=== PATIENT | female | born 1960 | race Caucasian/White ===

== ENCOUNTER → 2016-10-27 | Outpatient (CLI) | payer MEDICARE ==
--- NOTE | 2016-10-27 09:20 | WOMENS IMAGING REPORT ---
EXAM DESCRIPTION: BILAT SCREENING MAMMO W/CAD COMPLETED DATE/TIME: 10/27/2016 9:07 am REASON FOR STUDY: Z12.31 ROUTINE SCREENING MAMMO Z12.31 ENCNTR SCREEN MAMMOGRAM FOR MALIGNANT NEOPL ASM OF RADHA COMPARISON: Multiple since 2008 TECHNIQUE: Standard craniocaudal and mediolateral oblique views of each breast recorded using LV Sensorsa l acquisition. LIMITATIONS: None. FINDINGS: Findings present which are benign by mammographic criteria. No suspicious masses, calcifi cations or architectural distortion. Read with the assistance of CAD. .[facility] - R2 Cenova Version 1.3 .[facility] - R2 Cenova Version 1.3 .[facility] - R2 Cenova Version 2.4 .[facility] [place] Cenova Version 2.4 .[facility] - R2 Summer Clerk Version 9.2 Benign mammographic findings may include one or more of the following: Smooth masses, popcorn/rim/co arse calcifications, asymmetries, post-procedure changes, and lesions with long-standing stability. BREAST DENSITY: b. There are scattered areas of fibroglandular density. BIRAD: 2 BENIGN FINDING(S) RECOMMENDATION: ROUTINE SCREENING COMMENT: PATIENT NOTIFIED BY LETTER. The [employer] recommends an annual screening mammogram for women aged 40 years or over. Each patient will receive a reminder prior to the anniversary date of her mammogram. The [employer] (ACR) has developed recommendations for screening MRI of the breast s in certain patient populations, to be used in conjunction with mammography. Breast MRI surveillanc e may be appropriate for women with more than 20% lifetime risk of developing breast cancer as deter mined by genetic testing, significant family history of the disease, or history of mantle radiation f or Hodgkins Disease. ACR Practice Guidelines 2008. TECHNICAL DOCUMENTATION: FINDING NUMBER: (1) ASSESSMENT: (1) JOB ID: [id number] [employer]- All Rights Reserved
== END ==
LOC: WI 08:49
PROVIDERS: ATTEND Physician Assistant
DX: Z12.31 Encounter for screening mammogram for malignant neoplasm of breast (principal)
CPT/HCPCS: 77067; G0202

== ENCOUNTER 2017-01-24 08:38 | Emergency (ER) | payer MEDICARE ==
[2017-01-24 08:55] VITALS: BP 135/69
[2017-01-24] MEDS ORDERED: HYDROCODONE/ACETAMINOPHEN 5-325 MG TABLET PO ONE (09:52)
--- NOTE | 2017-01-24 09:56 | ER Document Report ---
ED Hand/Wrist Injury - General Chief Complaint: Wrist Injury Stated Complaint: INJURY/WRIST PAIN Time seen by provider: 09:51 Mode of Arrival: Ambulatory Information source: Patient Notes: 56 year old female presents to ED for left wrist injury. She states she was started on water caught herself with her hand injuring her wrist. Pain is a 5 out of 5 days she fell last night. TRAVEL OUTSIDE OF THE [place] IN LAST 30 DAYS: No - HPI Injury to: Wrist Onset: Yesterday Where: Home Timing: Still present Quality of pain: Pressure, Sharp Severity: Severe Pain Level: 5 - Related Data Allergies/Adverse Reactions: bupropion HCl [From Wellbutrin] Allergy (Severe, Verified 01/24/17 09:11) Hives Past Medical History - General Information source: Patient - Social History Smoking Status: Current Every Day Smoker Cigarette use (# per day): Yes Chew tobacco use (# tins/day): No Smoking Education Provided: Yes - less than 2 minutes Frequency of alcohol use: Occasional Drug Abuse: None Lives with: Family Family History: CAD, Hyperlipidemia, Hypertension, Malignancy Patient has suicidal ideation: No Patient has homicidal ideation: No - Past Medical History Cardiac Medical History: Reports: Hx Hypertension - MEDICATED Pulmonary Medical History: Reports: Hx Asthma - humidity affected, inhaler PRN/ LAST EPISODE FALL 2013 EENT Medical History: Reports: None Neurological Medical History: Reports: None. Denies: Hx Cerebrovascular Accident, Hx Seizures Endocrine Medical History: Reports: Hx Hypothyroidism Renal/ Medical History: Reports: None Malignancy Medical History: Reports: None GI Medical History: Reports: Hx Colonoscopy Musculoskeltal Medical History: Reports Hx Arthritis - Osteoporosis Spine, arms and hands, Reports Hx Musculoskeletal Deformity, Reports Hx Musculoskeletal Trauma, Reports Other - Chronic pain Reynard's Psychiatric Medical History: Reports: Hx Anxiety Traumatic Medical History: Reports: Hx Fractures - Arm Infectious Medical History: Denies: Hx Hepatitis Past Surgical History: Reports: Hx Genitourinary Surgery - Bladder sling, Hx Hysterectomy, Other - Cataracts - Immunizations Hx Diphtheria, Pertussis, Tetanus Vaccination: Yes Hx Pneumococcal Vaccination: 10/03/04 Review of Systems - Review of Systems Constitutional: No symptoms reported EENT: No symptoms reported Cardiovascular: No symptoms reported Respiratory: No symptoms reported Gastrointestinal: No symptoms reported Genitourinary: No symptoms reported Female Genitourinary: No symptoms reported Musculoskeletal: Joint pain, Muscle pain - Left wrist pain left wrist pain Skin: No symptoms reported Hematologic/Lymphatic: No symptoms reported Neurological/Psychological: No symptoms reported -: Yes All other systems reviewed and negative Physical Exam - Vital signs Vitals: Temp Pulse Resp BP Pulse Ox 97.9 F 99 16 135/69 H 97 01/24/17 08:50 01/24/17 08:50 01/24/17 08:50 01/24/17 08:50 01/24/17 08:50 Interpretation: Normal - General General appearance: Appears well, Alert - HEENT Head: Normocephalic, Atraumatic Eyes: Normal Pupils: PERRL - Respiratory Respiratory status: No respiratory distress Chest status: Nontender Breath sounds: Normal Chest palpation: Normal - Cardiovascular Rhythm: Regular Heart sounds: Normal auscultation Murmur: No - Abdominal Inspection: Normal Distension: No distension Bowel sounds: Normal Tenderness: Nontender Organomegaly: No organomegaly - Back Back: Normal, Nontender - Extremities General upper extremity: Normal temperature General lower extremity: Normal inspection, Nontender, Normal color, Normal ROM , Normal temperature, Normal weight bearing. No: Alexy's sign Wrist: Tender, Ecchymosis, Limited ROM - Neurological Neuro grossly intact: Yes Cognition: Normal Orientation: AAOx4 Cory Coma Scale Eye Opening: Spontaneous Cory Coma Scale Verbal: Oriented Cory Coma Scale Motor: Obeys Commands Cory Coma Scale Total: 15 Speech: Normal Motor strength normal: LUE, RUE, LLE, RLE Sensory: Normal - Psychological Associated symptoms: Normal affect, Normal mood - Skin Skin Temperature: Warm Skin Moisture: Dry Skin Color: Normal Course - Vital Signs Vital signs: Temp Pulse Resp BP Pulse Ox 97.9 F 99 16 135/69 H 97 01/24/17 08:50 01/24/17 08:50 01/24/17 08:50 01/24/17 08:50 01/24/17 08:50 Discharge - Discharge Clinical Impression: Left wrist pain Condition: Stable Disposition: HOME, SELF-CARE Additional Instructions: CONTUSION: Your injury has resulted in a contusion -- a crushing of the deep tissues. No injury to important structures was detected during the physician's exam. Contusions vary in the amount of pain they cause, and in the length of time required for healing. Typically, the area will become bruised, and will remain painful to touch for two or three weeks. However, most patients are back to working and playing within a few days. After the initial period of rest and cold-packs, your symptoms (together with the doctor's recommendations) will determine how rapidly you can get back to full activity. Usually this means "do what feels okay, but don't do things that hurt." If re-examination was recommended, it's important to follow up as instructed. Call the doctor or return any time if pain increases, if swelling becomes severe, if you develop numbness or weakness in an injured extremity, or if any other alarming symptoms occur. USE OF TYLENOL (ACETAMINOPHEN): Acetaminophen may be taken for pain relief or fever control. It's much safer than aspirin, offering a wider range of "safe" dosages. It is safe during . Some brand names are Tylenol, Panadol, Datril, Anacin 3, Tempra, and Liquiprin. Acetaminophen can be repeated every four hours. The following are maximum recommended dosages: WEIGHT Dose Drops Elixir Chewable( 80mg) (LBS.) drprs=droppers tsp=teaspoon 6 40 mg 0.4 ml (1/2) 6-11 80 mg 0.8 ml (full) tsp 1 tab 12-16 120 mg 1 1/2 drprs 3/4 tsp 1 1/2 tabs 17-23 160 mg 2 drprs 1 tsp 2 tabs 24-30 240 mg 3 drprs 1 1/2 tsp 3 tabs 30-35 320 mg 2 tsp 4 tabs 36-41 360 mg 2 1/4 tsp 4 1/2 tabs 42-47 400 mg 2 1/2 tsp 5 tabs 48-53 480 mg 3 tsp 6 tabs 54-59 520 mg 3 1/4 tsp 6 1/2 tabs 60-64 560 mg 3 1/2 tsp 7 tabs 65-70 600 mg 3 3/4 tsp 7 1/2 tabs 71-76 640 mg 4 tsp 8 tabs 77-82 720 mg 4 1/2 tsp 9 tabs 83-88 800 mg 5 tsp 10 tabs >89 pounds or adults 650 mg to 900 mg Acetaminophen can be repeated every four hours. Maximum dose not to exceed 4000 mg a day. These maximum recommended dosages are slightly higher than the dosages written on the product container, but these dosages are very safe and below the toxic dosage for acetaminophen. SPLINT PRECAUTIONS: A splint has been placed. This will protect the area while healing begins. Your problem does NOT normally require a cast. It MUST, however, be held still! Keep the splint on ALL THE TIME until instructed to remove it by the doctor. As you begin to use the area, be careful. You shouldn't do anything which causes discomfort -- you may disturb the injury even with the splint in place. After the initial period of rest and elevation, if splint does not prevent pain when you move, come back. You may require placement of a different splint , or a cast. If there is unexpected severe pain, or numbness, discoloration, or swelling beyond the splint, you should return at once. If you feel that the splint has broken or become loose, come back. SPRAINED ANKLE: Your sprained ankle results from stretching or tearing of the ligaments which support the ankle. This usually results from twisting the foot inward and under. The ligaments will require time and protection in order to heal properly. Many ankle sprains are quite disabling, and should be taken seriously. The usual treatment for an ankle sprain is cold packs; protection with tape , splints, or wraps; elevation; and staying off the ankle for at least a day. As the ankle improves, you can walk IF it's not painful to bear weight. Sports are best postponed until healing is complete. More serious sprains usually require strengthening exercises after early healing. Your physician has assessed the seriousness of the ligament injury to your ankle. However, the treatment may change, depending on how your ankle progresses. If further exams were recommended, it is important that you follow through. Call the doctor if your foot becomes numb, painful, or severely swollen. ICE & ELEVATION: Apply ice packs frequently against the painful area. Many different schedules are recommended, such as "20 minutes on, 20 minutes off" or "one hour ice, two hours rest." If you need to work, you may need to go longer between ice treatments. You should plan to have the area ice packed AT LEAST one- fourth of the time. The ice should be applied over the wrap, tape, or splint, or over a layer of cloth -- not directly against the skin. Some ice bags have a built-in cloth and can be put directly on the skin. Your injured part should be elevated as much as possible over the next 48 hours. Try to keep the injury above the level of the heart. Avoid use of the injured area. Elevation and rest will decrease the swelling. USE OF IBLA-NFA-UTXSRTM IBUPROFEN: Ibuprofen (Advil, Nuprin, Medipren, Motrin IB) is a medication for fever and pain control. In addition, it has anti- inflammatory effects which may be beneficial, especially in the treatment of injuries. It's best to take ibuprofen with food. Persons with ulcer disease or allergy to aspirin should notify their physician of this before taking ibuprofen. Ibuprofen can be given every four to six hours, for a total of four doses daily. Age Pain or fever dose Antiinflammatory dose 6-8 yr 200 mg (1 tab) 200 mg (1 tab) 9-11 yr 200 mg (1 tab) 200-400 mg (1-2 tab) 11-14 yr 200-400 mg (1-2 tab) 400 mg (2 tab) 15-adult 400 mg (2 tab) 600 mg (3 tab) ORAL NARCOTIC MEDICATION: You have been given a prescription for pain control. This medication is a narcotic. It's best taken with food, as nausea can result if taken on an empty stomach. Don't operate machinery or drive within six hours of taking this medication. Do not combine this medicine with alcohol, or with any medication which can cause sedation (such as cold tablets or sleeping pills) unless you get permission from the physician. Narcotics tend to cause constipation. If possible, drink plenty of fluids and eat a diet high in fiber and fruits. Please be aware that prescription narcotics also have the potential for abuse. People become addicted to these medications because of the general sense of wellbeing that they induce. This feeling along with a significant reduction in tension, anxiety, and aggression provides a stimulating seductive quality to these drugs. Once your pain is under control, we encourage you to discard your unused narcotics. FOLLOW-UP CARE: If you have been referred to a physician for follow-up care, call the physician s office for an appointment as you were instructed or within the next two days. If you experience worsening or a significant change in your symptoms, notify the physician immediately or return to the Emergency Department at any time for re-evaluation. Please complete the patient's satisfaction survey if you get one and return. If you do not receive a survey you can go to [facility] website [email or web address] and place your comments about your very good care. Thank you very much. It was a pleasure be in your medical provider today. Forms: Elevated Blood Pressure, Smoking Cessation Education, Return to Work Referrals: RACHELLE RIVERA PA [Primary Care Provider] - Follow up as needed JUAN FRANCOIS DO [ACTIVE STAFF] - Follow up as needed
[2017-01-24] MEDS ORDERED: HYDROCODONE/ACETAMINOPHEN 5-325 MG 6 TAB/DSPK PO PRN (10:17)
== END 2017-01-24 10:35 | disposition home or self-care (01) ==
LOC: ER 08:38
DX: S69.92XA Unspecified injury of left wrist, hand and finger(s), initial encounter (principal); W01.0XXA Fall on same level from slipping, tripping and stumbling without subsequent striking against object, initial encounter; Y92.009 Unspecified place in unspecified non-institutional (private) residence as the place of occurrence of the external cause; F17.210 Nicotine dependence, cigarettes, uncomplicated; I10 Essential (primary) hypertension
CPT/HCPCS: 99283; 73110; L3984; A9270 ×2

== ENCOUNTER → 2017-11-11 | Outpatient (CLI) | payer MEDICARE ==
--- NOTE | 2017-11-11 12:24 | WOMENS IMAGING REPORT ---
EXAM DESCRIPTION: BONE DENSITY HIP/SPINE COMPLETED DATE/TIME: 11/11/2017 10:13 am REASON FOR STUDY: AGE-RELATED OSTEOPROSIS;M81.0 Z12.31 ENCNTR SCREEN MAMMOGRAM FOR MALIGNANT NEOPLA SM OF RADHA M81.0 AGE-RELATED OSTEOPOROSIS W/O CURRENT PATHOLOGICAL FRAC COMPARISON: October 2014 TECHNIQUE: Dual-Energy X-ray Absorptiometry (DEXA) of the AP Spine and Hip. LIMITATIONS: None. FINDINGS: LUMBAR SPINE: The bone mineral density (BMD) measured from L1-L4 in the AP projection correlates with a T-score of 0.0, which is normal as defined by the World Health Organization. 3.1% increase as compared to the p revious study. HIP: The bone mineral density (BMD) measured in the left hip correlates with a T-score of -3.2, which is o steoporosis as defined by the World Health Organization. -4.6% decrease as compared to the previous study IMPRESSION: 1. LUMBAR SPINE: Normal 2. HIP: Osteoporosis COMMENT: The World Health Organization defines low BMD as follows: T-score: Normal: Greater than -1.0 Osteopenia: Between -1.0 and -2.5 Osteoporosis: Less than -2.5 without fractures Established osteoporosis: Less than -2.5 with fractures In general, you may wish to consider: Diagnosis Treatment Follow-up DEXA Normal BMD Prevention 2-3 years Osteopenia Prevention/Therapy 1-2 years Osteoporosis Therapy Yearly TECHNICAL DOCUMENTATION: JOB ID: [id number] [employer]- All Rights Reserved
--- NOTE | 2017-11-11 18:11 | WOMENS IMAGING REPORT ---
EXAM DESCRIPTION: 3D SCREENING MAMMO BILAT COMPLETED DATE/TIME: 11/11/2017 10:13 am REASON FOR STUDY: ROUTINE SCRENNING Z12.31 Z12.31 ENCNTR SCREEN MAMMOGRAM FOR MALIGNANT NEOPLASM OF RADHA M81.0 AGE-RELATED OSTEOPOROSIS W/O CURRENT PATHOLOGICAL FRAC COMPARISON: Multiple since 2009 TECHNIQUE: Standard craniocaudal and mediolateral oblique views of each breast recorded using digita l acquisition and breast tomosynthesis. LIMITATIONS: None. FINDINGS: No masses, calcifications or architectural distortion. No areas of suspicion. Read with the assistance of CAD. .[facility] - R2 Cenova Version 1.3 .[facility] - R2 Cenova Version 1.3 .[facility] - R2 Cenova Version 2.4 .[facility] [place] - R2 Cenova Version 2.4 .[facility] - R2 Fitness Consultant Version 9.2 IMPRESSION: NORMAL MAMMOGRAM. BIRADS 1. BREAST DENSITY: b. There are scattered areas of fibroglandular density. BIRAD: 1 NEGATIVE RECOMMENDATION: ROUTINE SCREENING Please continue bilateral screening tomosynthesis in November 2018 COMMENT: The patient has been notified of the results by letter per SA requirements. Additional no tification policies are in place for contacting patient with suspicious or incomplete findings. Quality ID #[id number]: The [employer] recommends an annual screening mammogram for women aged 40 years or over. This facility utilizes a reminder system to ensure that all patients receive reminder letters, and/or direct phone calls for appointments. This includes reminders for routine scr eening mammograms, diagnostic mammograms, or other Breast Imaging Interventions when appropriate. Th is patient will be placed in the appropriate reminder system. The [employer] (ACR) has developed recommendations for screening MRI of the breast s in certain patient populations, to be used in conjunction with mammography. Breast MRI surveillanc e may be appropriate for women with more than 20% lifetime risk of developing breast cancer as deter mined by genetic testing, significant family history of the disease, or history of mantle radiation f or Hodgkins Disease. ACR Practice Guidelines 2008. DBT Technology DBT is a type of tomographic mammography. With conventional mammography, overlapping breast tissue ma y make lesions difficult to detect, even with good compression. DBT uses an x-ray tube that rotates a round the breast, taking images at different angles. These images are then combined to create thin sl ices of the breast that the radiologist can view as a 3D reconstruction. The [employer] unit can perform full-field digital mammograms (2D imaging); or DBT (3D imaging); or both, in a combination mode that quickly performs both the mammogram and the tomosynthesis scan while the breast is still compressed. PQRS 6045F: Fluoroscopic imaging is not utilized for breast tomosynthesis. TECHNICAL DOCUMENTATION: FINDING NUMBER: (1) ASSESSMENT: (1) JOB ID: [id number] [employer]- All Rights Reserved
== END ==
LOC: WI 09:24
PROVIDERS: ATTEND Physician Assistant
DX: Z12.31 Encounter for screening mammogram for malignant neoplasm of breast (principal); M81.0 Age-related osteoporosis without current pathological fracture
CPT/HCPCS: 77063; 77067; 77080

== ENCOUNTER → 2018-11-29 | Outpatient (CLI) | payer MEDICARE ==
--- NOTE | 2018-11-29 09:36 | WOMENS IMAGING REPORT ---
EXAM DESCRIPTION: 3D SCREENING MAMMO BILAT COMPLETED DATE/TIME: 11/29/2018 8:51 am REASON FOR STUDY: Z12.31 ENCOUNTER FOR SCREENING MAMMOGRAM FOR MALIGNANT NEOPLASM OF BREAST Z12.31 ENCNTR SCREEN MAMMOGRAM FOR MALIGNANT NEOPLASM OF RADHA COMPARISON: [id number] TECHNIQUE: Standard craniocaudal and mediolateral oblique views of each breast recorded using digita l acquisition and breast tomosynthesis. LIMITATIONS: None. FINDINGS: Findings present which are benign by mammographic criteria. No suspicious masses, calcifi cations or architectural distortion. Pertinent benign findings: Stable asymmetry right. Read with the assistance of CAD. .[facility] - R2 Cenova Version 1.3 .[facility] - R2 Cenova Version 2.1 .[facility] - R2 Cenova Version 2.4 .[facility] [place] R2 Cenova Version 2.4 .[facility] - R2 Silversmith Apprentice Version 9.2 Benign mammographic findings may include one or more of the following: Smooth masses, popcorn/rim/co arse calcifications, asymmetries, post-procedure changes, and lesions with long-standing stability. IMPRESSION: BENIGN MAMMOGRAPHIC FINDINGS. BIRADS 2 BREAST DENSITY: b. There are scattered areas of fibroglandular density. BIRAD: 2 BENIGN FINDING(S) RECOMMENDATION: RECOMMENDATION: ROUTINE SCREENING COMMENT: The patient has been notified of the results by letter per SA requirements. Additional no tification policies are in place for contacting patient with suspicious or incomplete findings. Quality ID #[id number]: The [employer] recommends an annual screening mammogram for women aged 40 years or over. This facility utilizes a reminder system to ensure that all patients receive reminder letters, and/or direct phone calls for appointments. This includes reminders for routine scr eening mammograms, diagnostic mammograms, or other Breast Imaging Interventions when appropriate. Th is patient will be placed in the appropriate reminder system. The [employer] (ACR) has developed recommendations for screening MRI of the breast s in certain patient populations, to be used in conjunction with mammography. Breast MRI surveillanc e may be appropriate for women with more than 20% lifetime risk of developing breast cancer as deter mined by genetic testing, significant family history of the disease, or history of mantle radiation f or Hodgkins Disease. ACR Practice Guidelines 2008. DBT Technology DBT is a type of tomographic mammography. With conventional mammography, overlapping breast tissue ma y make lesions difficult to detect, even with good compression. DBT uses an x-ray tube that rotates a round the breast, taking images at different angles. These images are then combined to create thin sl ices of the breast that the radiologist can view as a 3D reconstruction. The [employer] unit can perform full-field digital mammograms (2D imaging); or DBT (3D imaging); or both, in a combination mode that quickly performs both the mammogram and the tomosynthesis scan while the breast is still compressed. PQRS 6045F: Fluoroscopic imaging is not utilized for breast tomosynthesis. TECHNICAL DOCUMENTATION: FINDING NUMBER: (1) ASSESSMENT: (1) JOB ID: [id number] [employer]- All Rights Reserved Reading location - IP/workstation name: [email or web address]
== END ==
LOC: WI 08:08
PROVIDERS: ATTEND Physician Assistant
DX: Z12.31 Encounter for screening mammogram for malignant neoplasm of breast (principal)
CPT/HCPCS: 77063; 77067

== ENCOUNTER 2019-06-02 18:25 | Inpatient (IN) | payer MEDICARE ==
[2019-06-02] MEDS ORDERED: ONDANSETRON HCL INJ/PF 4 MG/2 ML SDV ONE (18:34)
[2019-06-02] MEDS ORDERED: PROPOFOL 1,000 MG/100 ML INFUS..BTL IV ONE (18:35)
[2019-06-02] MEDS ORDERED: FENTANYL CITRATE INJ/PF 100 MCG/2 ML AMPUL ONE (18:35)
--- NOTE | 2019-06-02 18:43 | ER Document Report ---
ED General - General Chief Complaint: Possible Overdose Stated Complaint: POSSIBLE OVERDOSE Time Seen by Provider: 06/02/19 18:39 Mode of Arrival: Medic Information source: Emergency Med Personnel Cannot obtain history due to: Intoxicated, Intubated, Altered mental status Notes: 59-year-old female with hypothyroidism, hypertension presents via EMS intubated, unresponsive. EMS reports that they were called to the house by family members who report that the patient sent a text stating that she was going to kill herself. EMS reports that this is the patient's second attempt of suicide since her committed suicide approximately 9 months ago. EMS reports a bottle of Valium that was filled on May 31, 2019 with 30 tabs completely empty next to a large bottle of 80 proof alcohol. EMS reports that they found the patient on the couch, minimally responsive. Patient was intubated with a 6.5 ET tube which is at 23 at the lips. No family at the bedside but EMS reports that they are on their way. Patient was administered ketamine for intubation. TRAVEL OUTSIDE OF THE [place] IN LAST 30 DAYS: No - HPI Onset: Just prior to arrival Onset/Duration: Sudden Similar symptoms previously: Yes - Related Data Allergies/Adverse Reactions: bupropion HCl [From Wellbutrin] Allergy (Severe, Verified 01/24/17 09:11) Hives Past Medical History - General Information source: Emergency Med Personnel, [facility] Records - Social History Smoking Status: Unknown if Ever Smoked Frequency of alcohol use: Heavy Drug Abuse: Prescription drugs Lives with: Alone Family History: CAD, Hyperlipidemia, Hypertension, Malignancy - Past Medical History Cardiac Medical History: Reports: Hx Hypertension - MEDICATED Denies: Hx Heart Attack Pulmonary Medical History: Reports: Hx Asthma - humidity affected, inhaler PRN/LAST EPISODE FALL 2013 Denies: Hx Bronchitis, Hx COPD, Hx Pneumonia Neurological Medical History: Denies: Hx Cerebrovascular Accident, Hx Seizures Endocrine Medical History: Reports: Hx Hypothyroidism Renal/ Medical History: Denies: Hx Peritoneal Dialysis GI Medical History: Reports: Hx Colonoscopy. Denies: Hx Hepatitis, Hx Hiatal H ernia, Hx Ulcer Musculoskeletal Medical History: Reports Hx Arthritis - Osteoporosis Spine, arms and hands, Reports Hx Musculoskeletal Deformity, Reports Hx Musculoskeletal Tr auma Psychiatric Medical History: Reports: Hx Anxiety Traumatic Medical History: Reports: Hx Fractures - Arm Infectious Medical History: Denies: Hx Hepatitis Past Surgical History: Reports: Hx Genitourinary Surgery - Bladder sling, Hx Hysterectomy, Other - Cataracts. Denies: Hx Mastectomy, Hx Open Heart Surgery - Immunizations Hx Diphtheria, Pertussis, Tetanus Vaccination: Yes Hx Pneumococcal Vaccination: 10/03/04 Review of Systems - Review of Systems -: Yes ROS unobtainable due to patient's medical condition Physical Exam - Vital signs Vitals: Resp BP Pulse Ox 14 118/63 100 06/02/19 18:29 06/02/19 18:29 06/02/19 18:29 - Notes Notes: PHYSICAL EXAMINATION: GENERAL: Intubated C collar in place. GCS 3T HEAD: Atraumatic, normocephalic. EYES: Pupils equal round and reactive to light, extraocular movements intact, sclera anicteric, conjunctiva are normal. ENT: Nares patent, oropharynx clear without exudates. Moist mucous membranes. No hemanotympanum . No blood in nares. No dental fracture NECK: Normal range of motion, supple without lymphadenopathy. Trachea midline LUNGS: Breath sounds clear to auscultation bilaterally and equal. No wheezes rales or rhonchi. HEART: Regular rate and rhythm without murmurs. Pulses intact all throughout. ABDOMEN: Soft, nontender, nondistended abdomen. Mild erythema around the umbil icus. No masses appreciated. Musculoskeletal: No purposeful movement NEUROLOGICAL: GCS 3 T PSYCH: Unresponsive SKIN: Mild erythema around the umbilicus. No other evidence of abrasion, lacerations. Course - Re-evaluation Re-evalutation: Laboratory 06/02/19 06/02/19 06/02/19 17:35 17:35 18:30 WBC 12.4 H RBC 4.51 Hgb 14.2 Hct 42.0 MCV 93 MCH 31.4 MCHC 33.8 RDW 12.5 Plt Count 298 Lymph % (Auto) 31.5 [place] % (Auto) 7.9 Eos % (Auto) 2.3 Baso % (Auto) 0.4 Absolute Neuts (auto) 7.2 Absolute Lymphs (auto) 3.9 Absolute Monos (auto) 1.0 Absolute Eos (auto) 0.3 Absolute Basos (auto) 0.1 Seg Neutrophils % 57.9 Carbonic Acid 1.24 HCO3/H2CO3 Ratio 20:1 ABG pH 7.41 ABG pCO2 41.3 ABG pO2 184.5 H ABG HCO3 25.7 H ABG Total CO2 26.9 H ABG O2 Saturation 99.3 H ABG Base Excess 0.9 FiO2 40% Sodium 138.2 Potassium 3.5 L Chloride 98 Carbon Dioxide 26 Anion Gap 14 BUN 13 Creatinine 0.61 Est GFR ( Amer) > 60 Est GFR (MDRD) Non-Af > 60 Glucose 80 Calcium 9.2 Total Bilirubin 0.3 Direct Bilirubin 0.2 Neonat Total Bilirubin Not Reportable Neonat Direct Bilirubin Not Reportable Neonat Indirect Bili Not Reportable AST 35 ALT 20 Alkaline Phosphatase 71 Total Protein 6.6 Albumin 4.1 Urine Color Urine Appearance Urine pH Ur Specific [place] Urine Protein Urine Glucose (UA) Urine Ketones Urine Blood Urine Nitrite Urine Bilirubin Urine Urobilinogen Ur Leukocyte Esterase Urine Bacteria (Auto) Squamous Epi Cells Auto Urine Mucus (Auto) Urine Ascorbic Acid Salicylates 4.1 Urine Opiates Screen Urine Methadone Screen Acetaminophen < 10 L Ur Barbiturates Screen Ur Phencyclidine Scrn Ur Amphetamines Screen U Benzodiazepines Scrn Urine Cocaine Screen U Marijuana (THC) Screen Serum Alcohol 337 H* 06/02/19 06/02/19 18:35 18:35 WBC RBC Hgb Hct MCV MCH MCHC RDW Plt Count Lymph % (Auto) [place] % (Auto) Eos % (Auto) Baso % (Auto) Absolute Neuts (auto) Absolute Lymphs (auto) Absolute Monos (auto) Absolute Eos (auto) Absolute Basos (auto) Seg Neutrophils % Carbonic Acid HCO3/H2CO3 Ratio ABG pH ABG pCO2 ABG pO2 ABG HCO3 ABG Total CO2 ABG O2 Saturation ABG Base Excess FiO2 Sodium Potassium Chloride Carbon Dioxide Anion Gap BUN Creatinine Est GFR ( Amer) Est GFR (MDRD) Non-Af Glucose Calcium Total Bilirubin Direct Bilirubin Neonat Total Bilirubin Neonat Direct Bilirubin Neonat Indirect Bili AST ALT Alkaline Phosphatase Total Protein Albumin Urine Color STRAW Urine Appearance CLEAR Urine pH 6.0 Ur Specific [place] 1.003 Urine Protein NEGATIVE Urine Glucose (UA) NEGATIVE Urine Ketones NEGATIVE Urine Blood SMALL H Urine Nitrite NEGATIVE Urine Bilirubin NEGATIVE Urine Urobilinogen NEGATIVE Ur Leukocyte Esterase NEGATIVE Urine Bacteria (Auto) TRACE Squamous Epi Cells Auto <1 Urine Mucus (Auto) RARE Urine Ascorbic Acid NEGATIVE Salicylates Urine Opiates Screen NEGATIVE Urine Methadone Screen NEGATIVE Acetaminophen Ur Barbiturates Screen NEGATIVE Ur Phencyclidine Scrn NEGATIVE Ur Amphetamines Screen NEGATIVE U Benzodiazepines Scrn UNCONFIRMED POSITIVE Urine Cocaine Screen NEGATIVE U Marijuana (THC) Screen NEGATIVE Serum Alcohol Chest X-Ray 06/02/19 00:00 IMPRESSION: 1. ELEVATED LEFT HEMIDIAPHRAGM WITH LEFT LOWER LOBE AIRSPACE DISEASE AND LEFT PLEURAL EFFUSION. NO PNEUMOTHORAX. 2. ENDOTRACHEAL TUBE APPEARS TO BE IN SATISFACTORY POSITION. NASOGASTRIC TUBE WITH THE DISTAL END IN THE LOWER ESOPHAGUS. ADVANCEMENT BY SEVERAL CM RECOMMENDED. Head CT 06/02/19 18:57 IMPRESSION: 1. No acute hemorrhage or mass effect 2. redundant loop of the orogastric tube extends superiorly into the nasopharynx; consider repositioning. Chest CT 06/02/19 20:03 IMPRESSION: 1. Areas of atelectasis/consolidation at the lung bases, left greater than right. No pleural effusions. 2. No hematoma, fluid collection, or contusion is seen in the body wall. 3. No acute intra-abdominal findings. Chest X-Ray 06/02/19 20:12 IMPRESSION: Findings suspicious for pulmonary edema along with small left pleural effusion. Enteric drainage tube tip is located within the gastric cardia with side-port located in the distal esophagus. Consider advancement for optimal positioning. copyright 2010 [employer]- All Rights Reserved Abdomen/Pelvis CT 06/02/19 20:53 IMPRESSION: 1. Areas of atelectasis/consolidation at the lung bases, left greater than right. No pleural effusions. 2. No hematoma, fluid collection, or contusion is seen in the body wall. 3. No acute intra-abdominal findings. 06/02/19 18:56 59-year-old female presents via EMS from home intubated, after an intentional overdose with alcohol and Valium. Patient was intubated in the field using ketamine. 6.5 ET tube was placed. Upon arrival there are bilateral breath sounds. Patient has an O2 saturation of 100%. There is no purposeful movement or evidence of trauma. Family members are not currently at the bedside. 06/02/19 20:01 Poison control contacted-supportive care recommended. On reevaluation patient had an episode of desaturation. She was taken off the vent and repositioned. Patient was bagged for approximately 1 minute with immediate improvement of oxygen saturation. Repeat chest x-ray was obtained and showed no evidence of pne umothorax. 06/02/19 20:11 Son presented to the emergency department and reports that at approximately 1645 his brother received a text message stating that the patient was attempting to kill herself. He does report prior similar attempts. IVC petition initiated and behavioral health consult placed. Son states that when she was found by him and his she was sitting on the couch slumped over. He states that there was no evidence of trauma or fall. NG tube advanced. Temp An was placed and patient was found to be hypothermic and rewarming was initiated. 06/02/19 20:13 CT of the head chest abdomen and pelvis were obtained and there is no evidence of head injury, acute abdominal findings. CT of the chest showed consolidation in the lung bases bilaterally. Due to my concern for aspiration patient did receive Zosyn. For post intubation sedation patient was initially given fentany l only due to her significant somnolence and intoxication with benzodiazepines and alcohol. During her ED course patient did begin to move, cough and propofol was initiated for sedation. Patient's alcohol level is currently 337. I did speak to Dr. Bundy who has accepted the patient to the ICU. 06/03/19 01:34 06/03/19 01:36 - Vital Signs Vital signs: Temp Pulse Resp BP Pulse Ox 98.4 F 73 16 99/61 L 99 06/03/19 00:25 06/03/19 00:37 06/03/19 00:37 06/03/19 00:25 06/03/19 00:37 - Laboratory Result Diagrams: 06/02/19 17:35 06/02/19 17:35 Laboratory results interpreted by me: 06/02/19 06/02/19 06/02/19 17:35 17:35 18:30 WBC 12.4 H ABG pO2 184.5 H ABG HCO3 25.7 H ABG Total CO2 26.9 H ABG O2 Saturation 99.3 H Potassium 3.5 L Urine Blood Acetaminophen < 10 L Serum Alcohol 337 H* 06/02/19 18:35 WBC ABG pO2 ABG HCO3 ABG Total CO2 ABG O2 Saturation Potassium Urine Blood SMALL H Acetaminophen Serum Alcohol - Diagnostic Test Radiology reviewed: Image reviewed, Reports reviewed - EKG Interpretation by Me EKG shows normal: Sinus rhythm Rate: Normal Rhythm: NSR When compared to previous EKG there are: No significant change Critical Care Note - Critical Care Note Total time excluding time spent on procedures (mins): 60 - Minutes of critical care time spent in direct contact evaluating and reevaluating the patient, treating symptoms, reviewing labs and studies and speaking with family and consultants excluding any procedures Discharge - Discharge Clinical Impression: Intentional overdose of drug in tablet form, Suicide attempt Alcohol intoxication Qualifiers: Complication of substance-induced condition: uncomplicated Qualified Code(s): F10.920 - Alcohol use, unspecified with intoxication, uncomplicated Acute alcohol intoxication Qualifiers: Complication of substance-induced condition: with unspecified complication Qualified Code(s): F10.929 - Alcohol use, unspecified with intoxication, unspecified Condition: Critical Disposition: ADMITTED INPATIENT Admitting Provider: Gregor (Hospitalist) Unit Admitted: ICU
[2019-06-02 18:50] LABS: ABSOLUTE BASOPHILS # (AUTO) 0.1 10^3/uL (0.0-0.2); ABSOLUTE EOSINOPHILS # (AUTO) 0.3 10^3/uL (0.0-0.6); ABSOLUTE LYMPHOCYTES (AUTO) 3.9 10^3/uL (0.5-4.7); ABSOLUTE NEUT (AUTO) 7.2 10^3/uL (1.7-8.2); BASOPHILS % (AUTO) 0.4 % (0-2); EOSINOPHILS % (AUTO) 2.3 % (0-6); HEMOGLOBIN 14.2 g/dL (12.0-15.5); LYMPHOCYTES % (AUTO) 31.5 % (13-45); MEAN CORPUSCULAR HEMOGLOBIN 31.4 pg (27.0-33.4); MEAN CORPUSCULAR HGB CONC 33.8 g/dL (32.0-36.0); MEAN CORPUSCULAR VOLUME 93 fl (80-97); MONOCYTES % (AUTO) 7.9 % (3-13); PLATELET COUNT 298 10^3/uL (150-450); RED BLOOD COUNT 4.51 10^6/uL (3.72-5.28); RED CELL DISTRIBUTION WIDTH 12.5 % (11.5-14.0); SEGMENTED NEUTROPHILS % (AUTO) 57.9 % (42-78); TOTAL CELLS COUNTED % (AUTO) 100 %; WHITE BLOOD COUNT 12.4 10^3/uL (4.0-10.5)
[2019-06-02] MEDS ORDERED: RINGERS SOLUTION,LACTATED 1,000 ML IV ONE (18:51)
--- NOTE | 2019-06-02 18:56 | RADIOLOGY REPORT (SQ) ---
EXAM DESCRIPTION: CHEST SINGLE VIEW COMPLETED DATE/TIME: 06/02/2019 6:47 pm REASON FOR STUDY: TRAUMA COMPARISON: None. EXAM PARAMETERS: NUMBER OF VIEWS: One view. TECHNIQUE: Single frontal radiographic view of the chest acquired. RADIATION DOSE: NA LIMITATIONS: None. FINDINGS: LUNGS AND PLEURA: Elevated left hemidiaphragm. Left lower lobe airspace disease. Possibl e left pleural effusion. Linear scarring in the right lung base. No pneumothorax. MEDIASTINUM AND HILAR STRUCTURES: No masses. Contour normal. HEART AND VASCULAR STRUCTURES: Heart normal in size. Normal vasculature. BONES: No acute findings. HARDWARE: Endotracheal tube with the tip located 3 cm proximal to the bridgett. Nasogastric tube with the tip at the gastroesophageal junction. OTHER: No other significant finding. IMPRESSION: 1. ELEVATED LEFT HEMIDIAPHRAGM WITH LEFT LOWER LOBE AIRSPACE DISEASE AND LEFT PLEURAL EFFUSION. NO P NEUMOTHORAX. 2. ENDOTRACHEAL TUBE APPEARS TO BE IN SATISFACTORY POSITION. NASOGASTRIC TUBE WITH THE DISTAL END IN THE LOWER ESOPHAGUS. ADVANCEMENT BY SEVERAL CM RECOMMENDED. TECHNICAL DOCUMENTATION: JOB ID: [id number] [employer]- All Rights Reserved Reading location - IP/workstation name: [email or web address]
[2019-06-02 19:01] LABS: ARTERIAL BLOOD BASE EXCESS 0.9 mmol/L; ARTERIAL BLOOD FIO2 40%; ARTERIAL BLOOD H2CO3 1.24 mmol/L (1.05-1.35); ARTERIAL BLOOD HCO3 25.7 mmol/L (20-24); ARTERIAL BLOOD O2 SATURATION 99.3 % (94-98); ARTERIAL BLOOD PCO2 41.3 mmHg (35-45); ARTERIAL BLOOD PH 7.41 (7.35-7.45); ARTERIAL BLOOD PO2 184.5 mmHg (80-100); ARTERIAL BLOOD TOTAL CO2 26.9 mmol/L (21-25)
[2019-06-02 19:06] LABS: APPEARANCE,URINE CLEAR; BILIRUBIN,URINE NEGATIVE (NEGATIVE); COLOR,URINE STRAW; GLUCOSE, URINE NEGATIVE (NEGATIVE); KETONES,URINE NEGATIVE (NEGATIVE); LEUKOCYTE ESTERASE,URINE NEGATIVE (NEGATIVE); NITRITE,URINE NEGATIVE (NEGATIVE); PROTEIN,URINE NEGATIVE (NEGATIVE); URINE SPECIFIC GRAVITY 1.003; UROBILINOGEN,URINE NEGATIVE mg/dL (<2.0)
[2019-06-02 19:07] LABS: ALBUMIN 4.1 g/dL (3.5-5.0); ALKALINE PHOSPHATASE 71 U/L (38-126); ANION GAP 14 (5-19); ASPARTATE AMINO TRANSFERASE 35 U/L (14-36); BILIRUBIN,DIRECT 0.2 mg/dL (0.0-0.4); BILIRUBIN,TOTAL 0.3 mg/dL (0.2-1.3); BLOOD UREA NITROGEN 13 mg/dL (7-20); CALCIUM 9.2 mg/dL (8.4-10.2); CARBON DIOXIDE 26 mmol/L (22-30); CHLORIDE 98 mmol/L (98-107); GLUCOSE 80 mg/dL (75-110); POTASSIUM 3.5 mmol/L (3.6-5.0); SALICYLATE 4.1 mg/dL (2.0-20.0); TOTAL PROTEIN 6.6 g/dL (6.3-8.2)
[2019-06-02] MEDS ORDERED: FLUMAZENIL INJ 0.5 MG/5 ML VIAL ONE (19:19)
[2019-06-02 19:20] LABS: URINE AMPHETAMINES SCREEN NEGATIVE; URINE BARBITURATES SCREEN NEGATIVE; URINE BENZODIAZEPINES SCREEN UNCONFIRMED POSITIVE; URINE COCAINE SCREEN NEGATIVE; URINE MARIJUANA (THC) SCREEN NEGATIVE; URINE METHADONE SCREEN NEGATIVE; URINE PHENCYCLIDINE SCREEN NEGATIVE
[2019-06-02] MEDS ORDERED: PROPOFOL 1,000 MG/100 ML INFUS..BTL IV PRN (19:25)
[2019-06-02 19:32] LABS: ACETAMINOPHEN < 10 ug/mL (10-30); ALCOHOL 337 mg/dL (NONE DETECTED)
[2019-06-02] MEDS ORDERED: ONDANSETRON HCL INJ/PF 4 MG/2 ML SDV IV ONE (19:41)
[2019-06-02] MEDS ORDERED: FENTANYL CITRATE INJ/PF 100 MCG/2 ML AMPUL IV ONE (19:41)
[2019-06-02] MEDS ORDERED: PIPERACILLIN/TAZOBACTAM 3.375 GM VIAL IV ONE (20:02)
--- NOTE | 2019-06-02 20:43 | RADIOLOGY REPORT (SQ) ---
EXAM DESCRIPTION: XR CHEST 1 VIEW COMPLETED DATE/TME: 06/02/2019 20:12 CLINICAL HISTORY: 59 years, Female, change in resp status COMPARISON: None. NUMBER OF VIEWS: One TECHNIQUE: Single frontal view of the chest was obtained LIMITATIONS: None. FINDINGS: Endotracheal tube tip is located within the trachea, approximately 3.3 cm above the bridgett. Enteric drainage tube tip is located within the gastric cardia with side-port located in the distal esophagus. Cardiopericardial silhouette is enlarged. Mediastinal contours are normal. Bilateral perihilar opacity with vascular indistinctness is noted. Interstitial lines are evident about the periphery of both lungs. No pneumothorax. There is likely a small left pleural effusion. IMPRESSION: Findings suspicious for pulmonary edema along with small left pleural effusion. Enteric drainage tube tip is located within the gastric cardia with side-port located in the distal esophagus. Consider advancement for optimal positioning. copyright 2010 [employer]- All Rights Reserved
--- NOTE | 2019-06-02 21:05 | EKG REPORT ---
SEVERITY:- BORDERLINE ECG - SINUS RHYTHM BORDERLINE T ABNORMALITIES, ANTERIOR LEADS : Confirmed by: Alex Vazquez MD 02-Jun-2019 21:04:45
--- NOTE | 2019-06-02 21:16 | RADIOLOGY REPORT (SQ) ---
EXAM DESCRIPTION: [facility]: CT HEAD WITHOUT IV CONTRAST CLINICAL HISTORY: 59 years Female; ams TECHNIQUE: Noncontrast CT head. All CT scans at this facility use dose modulation, iterative reconstruction, and/or weight based dosing when appropriate to reduce radiation dose to as low as reasonably achievable. COMPARISON: None. FINDINGS: Focal hypodensity in the anterior left basal ganglia lateral to the left caudate head is likely an old lacunar infarct. No acute hemorrhage or mass effect. Ventricles and cisterns are preserved. Visualized portions of paranasal sinuses and mastoids are clear. No acute calvarial fractures. An orogastric tube has a redundant segment that protrudes superiorly into the posterior nasopharynx. This is best seen on the lateral inspector type view. IMPRESSION: 1. No acute hemorrhage or mass effect 2. redundant loop of the orogastric tube extends superiorly into the nasopharynx; consider repositioning.
[2019-06-02] MEDS ORDERED: PROPOFOL INJ 200 MG/20 ML VIAL IV ONE (21:17)
--- NOTE | 2019-06-02 21:33 | RADIOLOGY REPORT (SQ) ---
CT OF THE CHEST, ABDOMEN, AND PELVIS EXAM DATE: 06/02/2019 8:53 PM CDT HISTORY: Pleural effusion. Abdominal wall erythema. COMPARISON: None. TECHNIQUE: CT scan of the chest, abdomen, and pelvis without IV contrast. This exam was performed according to our departmental dose-optimization program, which includes automated exposure control, adjustment of the mA and/or kV according to patient size and/or use of iterative reconstruction technique. FINDINGS: The thyroid gland is unremarkable. No mediastinal or axillary adenopathy. Limited evaluation for hilar adenopathy without IV contrast. The heart size is normal without pericardial effusion. There is an area of atelectasis/consolidation at the lung bases, left greater than right. No pleural effusions or pneumothorax. Endotracheal and enteric tubes are in situ. The aorta is normal caliber and contains atherosclerotic calcifications. The liver, spleen, pancreas, gallbladder, adrenal glands, and kidneys are unremarkable. There has been a prior hysterectomy. A An catheter in the urinary bladder is present. There are scattered colonic diverticula without surrounding inflammatory changes. No small bowel obstruction. No free fluid or free air. Appendix is normal. The aorta is normal caliber and contains atherosclerotic calcifications. Degenerative changes of the lumbar spine with moderate levocurvature centered at L2-L3. No acute fracture is identified. No body wall soft tissue contusion. No hematoma or fluid collection is seen. IMPRESSION: 1. Areas of atelectasis/consolidation at the lung bases, left greater than right. No pleural effusions. 2. No hematoma, fluid collection, or contusion is seen in the body wall. 3. No acute intra-abdominal findings.
[2019-06-02] MEDS ORDERED: ACETAMINOPHEN 325 MG TABLET PO PRN (22:10)
[2019-06-02 22:46] LABS: ARTERIAL BLOOD BASE EXCESS -0.9 mmol/L; ARTERIAL BLOOD H2CO3 1.16 mmol/L (1.05-1.35); ARTERIAL BLOOD HCO3 23.5 mmol/L (20-24); ARTERIAL BLOOD O2 SATURATION 97.3 % (94-98); ARTERIAL BLOOD PCO2 38.5 mmHg (35-45); ARTERIAL BLOOD PO2 95.4 mmHg (80-100); ARTERIAL BLOOD TOTAL CO2 24.7 mmol/L (21-25)
[2019-06-02 22:47] LABS: ARTERIAL BLOOD FIO2 45%
[2019-06-02] MEDS ORDERED: PANTOPRAZOLE SODIUM 40 MG VIAL IV ONE (23:29)
[2019-06-03] MEDS: IPRATROPIUM/ALBUTEROL 0.5-2.5 MG/3 ML AMPUL NEB SCH ×3 (00:37→16:44)
[2019-06-03] MEDS ORDERED: PIPERACILLIN/TAZOBACTAM 3.375 GM VIAL IV ONE (01:38)
[2019-06-03] MEDS: NORMAL SALINE 1000 ML 1,000 ML IV PRN ×4 (02:00→15:08)
[2019-06-03] MEDS: FENTANYL CITRATE INJ/PF 100 MCG/2 ML AMPUL IV PRN ×5 (02:33→22:05)
[2019-06-03] MEDS: PROPOFOL 1,000 MG/100 ML INFUS..BTL IV PRN ×5 (02:34→20:33)
[2019-06-03 03:55] LABS: ABSOLUTE BASOPHILS # (AUTO) 0.1 10^3/uL (0.0-0.2); ABSOLUTE EOSINOPHILS # (AUTO) 0.2 10^3/uL (0.0-0.6); ABSOLUTE LYMPHOCYTES (AUTO) 2.7 10^3/uL (0.5-4.7); ABSOLUTE MONOCYTES (AUTO) 0.9 10^3/uL (0.1-1.4); ABSOLUTE NEUT (AUTO) 9.5 10^3/uL (1.7-8.2); BASOPHILS % (AUTO) 0.6 % (0-2); EOSINOPHILS % (AUTO) 1.7 % (0-6); HEMOGLOBIN 12.2 g/dL (12.0-15.5); LYMPHOCYTES % (AUTO) 20.2 % (13-45); MEAN CORPUSCULAR HEMOGLOBIN 31.5 pg (27.0-33.4); MEAN CORPUSCULAR VOLUME 93 fl (80-97); MONOCYTES % (AUTO) 6.5 % (3-13); PLATELET COUNT 261 10^3/uL (150-450); RED BLOOD COUNT 3.88 10^6/uL (3.72-5.28); RED CELL DISTRIBUTION WIDTH 12.2 % (11.5-14.0); TOTAL CELLS COUNTED % (AUTO) 100 %; WHITE BLOOD COUNT 13.4 10^3/uL (4.0-10.5)
[2019-06-03] MEDS ORDERED: PIPERACILLIN SODIUM/TAZOBACTAM 3.375 GM in NORMAL SALINE 100 ML IV SCH (04:00)
[2019-06-03 04:12] LABS: ANION GAP 10 (5-19); BLOOD UREA NITROGEN 9 mg/dL (7-20); CALCIUM 8.1 mg/dL (8.4-10.2); CARBON DIOXIDE 23 mmol/L (22-30); CHLORIDE 102 mmol/L (98-107); GLUCOSE 96 mg/dL (75-110); POTASSIUM 3.1 mmol/L (3.6-5.0)
[2019-06-03 05:00] LABS: ARTERIAL BLOOD BASE EXCESS -1.6 mmol/L; ARTERIAL BLOOD H2CO3 1.15 mmol/L (1.05-1.35); ARTERIAL BLOOD HCO3 22.9 mmol/L (20-24); ARTERIAL BLOOD O2 SATURATION 96.5 % (94-98); ARTERIAL BLOOD PCO2 38.3 mmHg (35-45); ARTERIAL BLOOD PO2 85.5 mmHg (80-100); ARTERIAL BLOOD TOTAL CO2 24.1 mmol/L (21-25)
[2019-06-03 05:01] LABS: ARTERIAL BLOOD FIO2 30%
[2019-06-03] MEDS ORDERED: HEPARIN SOD (PORCINE) 5,000 UNIT/ML 1 ML VIAL SUBCUT SCH (06:00)
--- NOTE | 2019-06-03 06:11 | PDOC H&P ---
History of Present Illness Admission Date/PCP: 06/02/19 22:26 SHMUEL PLEITEZ MD Patient complains of: Overdose History of Present Illness: CRESENCIO BHATTI is a 59 year old female whose history is obtained by the record as she is intubated and sedated with a past medical history of hypothyroidism, hypertension, depression and overdose. Family reports receiving text with threats of suicide. Patient was found by EMS with agonal respirations and an empty bottle 80 proof alcohol and Valium unknown milligram filled May 31. In the emergency room she is unresponsive and intubated in the emergency room without family at bedside. Patient appears comfortable on current vent settings. Past Medical History Cardiac Medical History: Reports: Hypertension - MEDICATED Denies: Myocardial Infarction Pulmonary Medical History: Reports: Asthma - humidity affected, inhaler PRN/LAST EPISODE FALL 2013 Denies: Bronchitis, Chronic Obstructive Pulmonary Disease (COPD), Pneumonia Neurological Medical History: Denies: Seizures Endocrine Medical History: Reports: Hypothyroidism GI Medical History: Denies: Hepatitis, Hiatal Hernia Musculoskeltal Medical History: Reports: Arthritis - Osteoporosis Spine, arms and hands Psychiatric Medical History: Reports: Depression Hematology: Denies: Anemia, Sickle Cell Disease Past Surgical History Past Surgical History: Reports: Hysterectomy, Other - Cataracts Denies: Amputation, Mastectomy Social History Information Source: Emergency Med Personnel, [facility] Records Lives with: Alone Smoking Status: Unknown if Ever Smoked Frequency of Alcohol Use: Heavy Hx Prescription Drug Abuse: Yes - Advance Directive Resuscitation Status: Full Code Family History Family History: CAD, Hyperlipidemia, Hypertension, Malignancy Parental Family History Reviewed: No - Unobtainable Children Family History Reviewed: No - Unobtainable Sibling(s) Family History Reviewed.: No - Unobtainable Medication/Allergy Home Medications: Amlodipine Besylate [Norvasc 5 mg Tablet] 2.5 mg PO DAILY 11/29/14 Potassium Chloride 5 meq PO DAILY 12/22/15 Thyroid,Pork [Millen Thyroid] 90 mg PO DAILY 12/23/15 Allergies/Adverse Reactions: bupropion HCl [From Wellbutrin] Allergy (Severe, Verified 01/24/17 09:11) Hives Review of Systems ROS unobtainable: Due to mental status - Unobtainable Physical Exam Vital Signs: Temp Pulse Resp BP Pulse Ox 97.2 F 73 16 82/57 L 97 06/03/19 05:13 06/03/19 00:37 06/03/19 03:08 06/03/19 03:08 06/03/19 03:08 Intake & Output 06/01/19 06/02/19 06/03/19 11:59 11:59 11:59 Intake Total 1200 Output Total 1095 Balance 105 Weight 52.8 kg General appearance: PRESENT: no acute distress. ABSENT: cooperative Head exam: PRESENT: atraumatic, normocephalic Eye exam: PRESENT: conjunctiva pink, EOMI, PERRLA. ABSENT: scleral icterus Ear exam: PRESENT: normal external ear exam Mouth exam: PRESENT: other - Small quantity bright red blood in oropharynx following NG tube placement Neck exam: ABSENT: carotid bruit, JVD, lymphadenopathy, thyromegaly Respiratory exam: PRESENT: clear to auscultation mercedes. ABSENT: rales, rhonchi, wheezes Cardiovascular exam: PRESENT: RRR. ABSENT: diastolic murmur, rubs, systolic murmur Pulses: PRESENT: normal dorsalis pedis pul Vascular exam: PRESENT: normal capillary refill GI/Abdominal exam: PRESENT: normal bowel sounds, soft. ABSENT: distended, guarding, mass, organolmegaly, rebound, tenderness Rectal exam: PRESENT: deferred Extremities exam: PRESENT: full ROM. ABSENT: calf tenderness, clubbing, pedal edema Neurological exam: ABSENT: alert, CN II-XII grossly intact Skin exam: PRESENT: dry, intact, warm. ABSENT: cyanosis, rash Results Laboratory Results: 06/03/19 03:40 06/03/19 03:40 06/02/19 06/02/19 06/02/19 17:35 17:35 18:30 WBC 12.4 H RBC 4.51 Hgb 14.2 Hct 42.0 MCV 93 MCH 31.4 MCHC 33.8 RDW 12.5 Plt Count 298 Seg Neutrophils % 57.9 Carbonic Acid 1.24 HCO3/H2CO3 Ratio 20:1 ABG pH 7.41 ABG pCO2 41.3 ABG pO2 184.5 H ABG HCO3 25.7 H ABG O2 Saturation 99.3 H ABG Base Excess 0.9 FiO2 40% Sodium 138.2 Potassium 3.5 L Chloride 98 Carbon Dioxide 26 Anion Gap 14 BUN 13 Creatinine 0.61 Est GFR ( Amer) > 60 Glucose 80 Calcium 9.2 Total Bilirubin 0.3 AST 35 Alkaline Phosphatase 71 Total Protein 6.6 Albumin 4.1 Urine Color Urine Appearance Urine pH Ur Specific [place] Urine Protein Urine Glucose (UA) Urine Ketones Urine Blood Urine Nitrite Ur Leukocyte Esterase 06/02/19 06/02/19 06/03/19 18:35 22:38 03:40 WBC 13.4 H RBC 3.88 Hgb 12.2 Hct 36.0 MCV 93 MCH 31.5 MCHC 34.0 RDW 12.2 Plt Count 261 Seg Neutrophils % 71.0 Carbonic Acid 1.16 HCO3/H2CO3 Ratio 20:1 ABG pH 7.40 ABG pCO2 38.5 ABG pO2 95.4 ABG HCO3 23.5 ABG O2 Saturation 97.3 ABG Base Excess -0.9 FiO2 45% Sodium Potassium Chloride Carbon Dioxide Anion Gap BUN Creatinine Est GFR ( Amer) Glucose Calcium Total Bilirubin AST Alkaline Phosphatase Total Protein Albumin Urine Color STRAW Urine Appearance CLEAR Urine pH 6.0 Ur Specific [place] 1.003 Urine Protein NEGATIVE Urine Glucose (UA) NEGATIVE Urine Ketones NEGATIVE Urine Blood SMALL H Urine Nitrite NEGATIVE Ur Leukocyte Esterase NEGATIVE 06/03/19 06/03/19 03:40 04:40 WBC RBC Hgb Hct MCV MCH MCHC RDW Plt Count Seg Neutrophils % Carbonic Acid 1.15 HCO3/H2CO3 Ratio 19:1 ABG pH 7.40 ABG pCO2 38.3 ABG pO2 85.5 ABG HCO3 22.9 ABG O2 Saturation 96.5 ABG Base Excess -1.6 FiO2 30% Sodium 134.5 L Potassium 3.1 L Chloride 102 Carbon Dioxide 23 Anion Gap 10 BUN 9 Creatinine 0.47 L Est GFR ( Amer) > 60 Glucose 96 Calcium 8.1 L Total Bilirubin AST Alkaline Phosphatase Total Protein Albumin Urine Color Urine Appearance Urine pH Ur Specific [place] Urine Protein Urine Glucose (UA) Urine Ketones Urine Blood Urine Nitrite Ur Leukocyte Esterase Impressions: Head CT 06/02/19 18:57 IMPRESSION: 1. No acute hemorrhage or mass effect 2. redundant loop of the orogastric tube extends superiorly into the nasopharynx; consider repositioning. Chest CT 06/02/19 20:03 IMPRESSION: 1. Areas of atelectasis/consolidation at the lung bases, left greater than right. No pleural effusions. 2. No hematoma, fluid collection, or contusion is seen in the body wall. 3. No acute intra-abdominal findings. Chest X-Ray 06/02/19 20:12 IMPRESSION: Findings suspicious for pulmonary edema along with small left pleural effusion. Enteric drainage tube tip is located within the gastric cardia with side-port located in the distal esophagus. Consider advancement for optimal positioning. copyright 2011 [employer]- All Rights Reserved Abdomen/Pelvis CT 06/02/19 20:53 IMPRESSION: 1. Areas of atelectasis/consolidation at the lung bases, left greater than right. No pleural effusions. 2. No hematoma, fluid collection, or contusion is seen in the body wall. 3. No acute intra-abdominal findings. Assessment and Plan - Diagnosis (1) Encephalopathy acute Is this a current diagnosis for this admission?: Yes Plan: Secondary to benzodiazepine overdose and alcohol. Supportive care (2) Aspiration pneumonia Is this a current diagnosis for this admission?: Yes Plan: Empiric antibiotics, follow-up chest x-ray, CBC and blood culture (3) Benzodiazepine overdose Is this a current diagnosis for this admission?: Yes Plan: Supportive care, consider flumazenil (4) Alcohol intoxication Qualifiers: Complication of substance-induced condition: uncomplicated Qualified Code(s): F10.920 - Alcohol use, unspecified with intoxication, uncomplicated Is this a current diagnosis for this admission?: Yes Plan: Supportive care (5) Suicide attempt Is this a current diagnosis for this admission?: Yes Plan: Acetaminophen level below detected level, supportive care for benzodiazepine, alcohol overdose, follow-up psychiatry consult - Time Time Spent with patient: 35 or more minutes - Inpatient Certification Medical Necessity: Need Close Monitoring Due to Risk of Patient Decompensation
[2019-06-03] MEDS: POTASSI CL 20 MEQ/50 ML RIDER 20 MEQ/50 ML RTUPB IV SCH ×2 (06:30→08:02)
[2019-06-03] MEDS: MAGNESIUM SULFATE 1 GM/D5W 100 ML IV SCH ×2 (08:02→09:32)
[2019-06-03] MEDS: LORAZEPAM INJ 2 MG/1 ML VIAL IV PRN ×4 (08:56→20:19)
[2019-06-03] MEDS: PIPERACILLIN SODIUM/TAZOBACTAM 3.375 GM in NORMAL SALINE 100 ML IV SCH ×3 (10:41→20:20)
[2019-06-03] MEDS: NORMAL SALINE 100 ML with PANTOPRAZOLE SODIUM 80 MG IV PRN ×4 (10:42→20:18)
[2019-06-03 12:06] LABS: INTERNATIONAL RATION (INR) 0.95; PARTIAL THROMBOPLASTIN TIME 27.1 SEC (23.5-35.8); PROTHROMBIN TIME 12.7 SEC (11.4-15.4)
[2019-06-03 12:16] LABS: POTASSIUM 3.9 mmol/L (3.6-5.0)
--- NOTE | 2019-06-03 14:05 | RADIOLOGY REPORT (SQ) ---
EXAM DESCRIPTION: KUB/ABDOMEN (SINGLE VIEW) COMPLETED DATE/TIME: 06/03/2019 1:54 pm REASON FOR STUDY: NGT replacement COMPARISON: None. NUMBER OF VIEWS: One view. TECHNIQUE: Supine radiographic image of the abdomen acquired. LIMITATIONS: None. FINDINGS: BOWEL GAS PATTERN: Normal bowel gas pattern. No dilated loops. CALCIFICATIONS: No suspicious calcifications. SOFT TISSUES: No gross mass or suggestion of organomegaly. HARDWARE: Nasogastric tube with the tip in the stomach. BONES: No acute fracture. Marked degenerative changes in the spine with scoliosis. No worrisome bon e lesions. OTHER: No other significant finding. IMPRESSION: NASOGASTRIC TUBE WITH THE TIP IN THE STOMACH. NO RADIOGRAPHIC EVIDENCE FOR ACUTE ABDOMI NAL DISEASE. TECHNICAL DOCUMENTATION: JOB ID: [id number] [employer]- All Rights Reserved Reading location - IP/workstation name: [email or web address]
--- NOTE | 2019-06-03 14:44 | PSYCHOLOGICAL NOTE ---
Psych Note - Psych Note Date seen by psych provider: 06/03/19 Time seen by psych provider: 08:25 Psych Note: Presenting Problem: 24 hour IVC, OD of alcohol and Valium, currently on ventilator. Serum Alcohol Level was 337 upon arrival to ED. UDS is positive for benzodiazepines. She was seen on 12/22/15 for suicidal ideations. Diagnosis: OD Impression/Plan: Please contact [facility] when patient is no longer on ventilator and can engage in evaluation. A full IVC can be completed now or at a later date when patient is off ventilator, this is entirely up to the Attending Hospitalist. Note that inpatient placement efforts cannot be started until medically cleared and an IVC expires after 7 days. The current IVC is just a 24 Hour Petition. Thank you. Consulted with Dr. Vallejo regarding the management and care of patient.
--- NOTE | 2019-06-03 15:21 | PDOC PROGRESS REPORT ---
Subjective Progress Note for:: 06/03/19 Subjective:: This is a 59 yr old female with a PMH of hypothyroidism, hypertension, depression and alcohol abuse who brought in by EMS due to agonal respiration after a reported intentional ingestion of 30 tablets of Valium and alcohol intoxication. She was promptly intubated and admitted to the ICU. This morning, patient appears comfortable on current sedation. She remains intubated. She has been having some bright red bloody output from the OG. Reason For Visit: OVERDOSE,ASP PNEUMONIA,ACUTE RESPIRATORY FAILURE Physical Exam Vital Signs: Temp Pulse Resp BP Pulse Ox 99.7 F 75 16 118/67 97 06/03/19 14:00 06/03/19 14:00 06/03/19 14:00 06/03/19 14:00 06/03/19 14:00 Intake & Output 06/02/19 06/03/19 06/04/19 06:59 06:59 06:59 Intake Total 2268 1350 Output Total 1095 2600 Balance 1173 -1250 Weight 116 lb 6.465 oz General appearance: PRESENT: other - Intubated, sedated Head exam: PRESENT: atraumatic, normocephalic Eye exam: PRESENT: conjunctiva pink, EOMI, PERRLA. ABSENT: scleral icterus Ear exam: PRESENT: normal external ear exam Mouth exam: PRESENT: moist, tongue midline Neck exam: ABSENT: carotid bruit, JVD, lymphadenopathy, thyromegaly Respiratory exam: PRESENT: clear to auscultation mercedes. ABSENT: rales, rhonchi, wheezes Cardiovascular exam: PRESENT: RRR. ABSENT: diastolic murmur, rubs, systolic murmur Pulses: PRESENT: normal dorsalis pedis pul GI/Abdominal exam: PRESENT: normal bowel sounds, soft. ABSENT: distended, guarding, mass, organolmegaly, rebound, tenderness Rectal exam: PRESENT: deferred Neurological exam: PRESENT: other - Intubated, sedated Results Laboratory Results: 06/03/19 03:40 06/03/19 11:50 06/02/19 06/02/19 06/02/19 17:35 17:35 18:30 WBC 12.4 H RBC 4.51 Hgb 14.2 Hct 42.0 MCV 93 MCH 31.4 MCHC 33.8 RDW 12.5 Plt Count 298 Seg Neutrophils % 57.9 Carbonic Acid 1.24 HCO3/H2CO3 Ratio 20:1 ABG pH 7.41 ABG pCO2 41.3 ABG pO2 184.5 H ABG HCO3 25.7 H ABG O2 Saturation 99.3 H ABG Base Excess 0.9 FiO2 40% Sodium 138.2 Potassium 3.5 L Chloride 98 Carbon Dioxide 26 Anion Gap 14 BUN 13 Creatinine 0.61 Est GFR ( Amer) > 60 Glucose 80 Calcium 9.2 Magnesium Total Bilirubin 0.3 AST 35 Alkaline Phosphatase 71 Total Protein 6.6 Albumin 4.1 Urine Color Urine Appearance Urine pH Ur Specific [place] Urine Protein Urine Glucose (UA) Urine Ketones Urine Blood Urine Nitrite Ur Leukocyte Esterase 06/02/19 06/02/19 06/03/19 18:35 22:38 03:40 WBC 13.4 H RBC 3.88 Hgb 12.2 Hct 36.0 MCV 93 MCH 31.5 MCHC 34.0 RDW 12.2 Plt Count 261 Seg Neutrophils % 71.0 Carbonic Acid 1.16 HCO3/H2CO3 Ratio 20:1 ABG pH 7.40 ABG pCO2 38.5 ABG pO2 95.4 ABG HCO3 23.5 ABG O2 Saturation 97.3 ABG Base Excess -0.9 FiO2 45% Sodium Potassium Chloride Carbon Dioxide Anion Gap BUN Creatinine Est GFR ( Amer) Glucose Calcium Magnesium Total Bilirubin AST Alkaline Phosphatase Total Protein Albumin Urine Color STRAW Urine Appearance CLEAR Urine pH 6.0 Ur Specific [place] 1.003 Urine Protein NEGATIVE Urine Glucose (UA) NEGATIVE Urine Ketones NEGATIVE Urine Blood SMALL H Urine Nitrite NEGATIVE Ur Leukocyte Esterase NEGATIVE 06/03/19 06/03/19 06/03/19 03:40 03:40 04:40 WBC RBC Hgb Hct MCV MCH MCHC RDW Plt Count Seg Neutrophils % Carbonic Acid 1.15 HCO3/H2CO3 Ratio 19:1 ABG pH 7.40 ABG pCO2 38.3 ABG pO2 85.5 ABG HCO3 22.9 ABG O2 Saturation 96.5 ABG Base Excess -1.6 FiO2 30% Sodium 134.5 L Potassium 3.1 L Chloride 102 Carbon Dioxide 23 Anion Gap 10 BUN 9 Creatinine 0.47 L Est GFR ( Amer) > 60 Glucose 96 Calcium 8.1 L Magnesium 1.4 L Total Bilirubin AST Alkaline Phosphatase Total Protein Albumin Urine Color Urine Appearance Urine pH Ur Specific [place] Urine Protein Urine Glucose (UA) Urine Ketones Urine Blood Urine Nitrite Ur Leukocyte Esterase 06/03/19 11:50 WBC RBC Hgb Hct MCV MCH MCHC RDW Plt Count Seg Neutrophils % Carbonic Acid HCO3/H2CO3 Ratio ABG pH ABG pCO2 ABG pO2 ABG HCO3 ABG O2 Saturation ABG Base Excess FiO2 Sodium Potassium 3.9 Chloride Carbon Dioxide Anion Gap BUN Creatinine Est GFR ( Amer) Glucose Calcium Magnesium 2.1 Total Bilirubin AST Alkaline Phosphatase Total Protein Albumin Urine Color Urine Appearance Urine pH Ur Specific [place] Urine Protein Urine Glucose (UA) Urine Ketones Urine Blood Urine Nitrite Ur Leukocyte Esterase Impressions: Head CT 06/02/19 18:57 IMPRESSION: 1. No acute hemorrhage or mass effect 2. redundant loop of the orogastric tube extends superiorly into the nasopharynx; consider repositioning. Chest CT 06/02/19 20:03 IMPRESSION: 1. Areas of atelectasis/consolidation at the lung bases, left greater than right. No pleural effusions. 2. No hematoma, fluid collection, or contusion is seen in the body wall. 3. No acute intra-abdominal findings. Chest X-Ray 06/02/19 20:12 IMPRESSION: Findings suspicious for pulmonary edema along with small left pleural effusion. Enteric drainage tube tip is located within the gastric cardia with side-port located in the distal esophagus. Consider advancement for optimal positioning. copyright 2011 [employer]- All Rights Reserved Abdomen/Pelvis CT 06/02/19 20:53 IMPRESSION: 1. Areas of atelectasis/consolidation at the lung bases, left greater than right. No pleural effusions. 2. No hematoma, fluid collection, or contusion is seen in the body wall. 3. No acute intra-abdominal findings. KUB X-Ray 06/03/19 00:00 IMPRESSION: NASOGASTRIC TUBE WITH THE TIP IN THE STOMACH. NO RADIOGRAPHIC EVIDENCE FOR ACUTE ABDOMINAL DISEASE. Assessment and Plan - Diagnosis (1) Acute respiratory failure with hypoxia Is this a current diagnosis for this admission?: Yes Plan: Secondary to benzodiazepine overdose and alcohol intoxication. Intubated. On minimal vent settings. (2) Acute encephalopathy Is this a current diagnosis for this admission?: Yes (3) Upper GI bleed Is this a current diagnosis for this admission?: Yes Plan: Will start Protonix and Sandostatin drip. Type and screen. Will consult surgery. (4) Alcohol intoxication Qualifiers: Complication of substance-induced condition: uncomplicated Qualified Code(s): F10.920 - Alcohol use, unspecified with intoxication, uncomplicated Is this a current diagnosis for this admission?: Yes (5) Aspiration pneumonia Is this a current diagnosis for this admission?: Yes Plan: On Zosyn. (6) Suicide attempt Is this a current diagnosis for this admission?: Yes Plan: Psych consulted.
[2019-06-03 15:38] LABS: ABSOLUTE BASOPHILS # (AUTO) 0.1 10^3/uL (0.0-0.2); ABSOLUTE EOSINOPHILS # (AUTO) 0.1 10^3/uL (0.0-0.6); ABSOLUTE LYMPHOCYTES (AUTO) 1.5 10^3/uL (0.5-4.7); ABSOLUTE MONOCYTES (AUTO) 0.8 10^3/uL (0.1-1.4); ABSOLUTE NEUT (AUTO) 8.7 10^3/uL (1.7-8.2); BASOPHILS % (AUTO) 0.7 % (0-2); EOSINOPHILS % (AUTO) 0.7 % (0-6); HEMATOCRIT 37.9 % (36.0-47.0); HEMOGLOBIN 12.9 g/dL (12.0-15.5); LYMPHOCYTES % (AUTO) 13.4 % (13-45); MEAN CORPUSCULAR HEMOGLOBIN 31.4 pg (27.0-33.4); MEAN CORPUSCULAR VOLUME 92 fl (80-97); MONOCYTES % (AUTO) 7.1 % (3-13); PLATELET COUNT 260 10^3/uL (150-450); RED CELL DISTRIBUTION WIDTH 12.1 % (11.5-14.0); SEGMENTED NEUTROPHILS % (AUTO) 78.1 % (42-78); TOTAL CELLS COUNTED % (AUTO) 100 %; WHITE BLOOD COUNT 11.1 10^3/uL (4.0-10.5)
[2019-06-03] MEDS: NORMAL SALINE 500 ML with OCTREOTIDE ACETATE 500 MCG IV PRN ×2 (15:53)
[2019-06-03] MEDS: SUCRALFATE 1 GM TABLET PO SCH ×2 (15:54→22:05)
[2019-06-03] MEDS ORDERED: ACETAMINOPHEN 650 MG SUPP.RECT PR PRN (16:16)
--- NOTE | 2019-06-03 17:13 | PDOC CONSULTATION ---
Consultation Consult Date: 06/03/19 Attending physician:: TYLOR SCHOFIELD Provider Consulted: KEVIN LUBIN Consult reason:: NG tube bleeding History of Present Illness Admission Date/PCP: 06/02/19 22:26 SHMUEL PLEITEZ MD Patient complains of: Patient intubated History of Present Illness: CRESENCIO BHATTI is a 59 year old female Who is in the intensive care unit hospitalized and intubated due to overdose of alcohol and. Patient was found this afternoon to have bloody drainage from her nasogastric tube. Patient remains hemodynamically stable. Instructions were provided to DC the suction. Bleeding has transiently abated. Past Medical History Cardiac Medical History: Reports: Hypertension - MEDICATED Denies: Myocardial Infarction Pulmonary Medical History: Reports: Asthma - humidity affected, inhaler PRN/LAST EPISODE FALL 2013 Denies: Bronchitis, Chronic Obstructive Pulmonary Disease (COPD), Pneumonia Neurological Medical History: Denies: Seizures Endocrine Medical History: Reports: Hypothyroidism GI Medical History: Denies: Hepatitis, Hiatal Hernia Musculoskeltal Medical History: Reports: Arthritis - Osteoporosis Spine, arms and hands Psychiatric Medical History: Reports: Depression Hematology: Denies: Anemia, Sickle Cell Disease Past Surgical History Past Surgical History: Reports: Hysterectomy, Other - Cataracts Denies: Amputation, Mastectomy Social History Lives with: Alone Smoking Status: Unknown if Ever Smoked Frequency of Alcohol Use: Heavy Hx Prescription Drug Abuse: Yes - Advance Directive Resuscitation Status: Full Code Family History Family History: None, CAD, Hyperlipidemia, Hypertension, Malignancy Parental Family History Reviewed: No Children Family History Reviewed: No Sibling(s) Family History Reviewed.: No Medication/Allergy Home Medications: Unobtainable 06/03/19 Allergies/Adverse Reactions: bupropion HCl [From Wellbutrin] Allergy (Severe, Verified 01/24/17 09:11) Hives Review of Systems ROS unobtainable: Due to mental status - Unable to obtain due to patient being intubated, Other Physical Exam Vital Signs: Temp Pulse Resp BP Pulse Ox 100.8 F H 82 16 133/76 H 98 06/03/19 16:08 06/03/19 16:52 06/03/19 16:52 06/03/19 16:08 06/03/19 16:52 Intake & Output 06/02/19 06/03/19 06/04/19 06:59 06:59 06:59 Intake Total 3135 6600 Output Total 7238 4070 Balance 1173 -1700 Weight 52.8 kg General appearance: PRESENT: other - On the ventilator, agitated Mouth exam: PRESENT: dry mucosa Neck exam: PRESENT: other - Rhonchi bilaterally Respiratory exam: PRESENT: other Cardiovascular exam: PRESENT: RRR Pulses: PRESENT: normal carotid pulses, normal radial pulses, normal femoral pulses GI/Abdominal exam: PRESENT: other Rectal exam: PRESENT: deferred - No abdominal distention or tenderness however exam limited due to patient on sedation; umbilical skin piercing Extremities exam: PRESENT: +1 edema Neurological exam: PRESENT: other - Unable to sedation Results Laboratory Results: 06/03/19 15:23 06/03/19 11:50 06/02/19 06/02/19 06/02/19 17:35 17:35 18:30 WBC 12.4 H RBC 4.51 Hgb 14.2 Hct 42.0 MCV 93 MCH 31.4 MCHC 33.8 RDW 12.5 Plt Count 298 Seg Neutrophils % 57.9 Carbonic Acid 1.24 HCO3/H2CO3 Ratio 20:1 ABG pH 7.41 ABG pCO2 41.3 ABG pO2 184.5 H ABG HCO3 25.7 H ABG O2 Saturation 99.3 H ABG Base Excess 0.9 FiO2 40% Sodium 138.2 Potassium 3.5 L Chloride 98 Carbon Dioxide 26 Anion Gap 14 BUN 13 Creatinine 0.61 Est GFR ( Amer) > 60 Glucose 80 Calcium 9.2 Magnesium Total Bilirubin 0.3 AST 35 Alkaline Phosphatase 71 Total Protein 6.6 Albumin 4.1 Urine Color Urine Appearance Urine pH Ur Specific [place] Urine Protein Urine Glucose (UA) Urine Ketones Urine Blood Urine Nitrite Ur Leukocyte Esterase Blood Type Antibody Screen 06/02/19 06/02/19 06/03/19 18:35 22:38 03:40 WBC 13.4 H RBC 3.88 Hgb 12.2 Hct 36.0 MCV 93 MCH 31.5 MCHC 34.0 RDW 12.2 Plt Count 261 Seg Neutrophils % 71.0 Carbonic Acid 1.16 HCO3/H2CO3 Ratio 20:1 ABG pH 7.40 ABG pCO2 38.5 ABG pO2 95.4 ABG HCO3 23.5 ABG O2 Saturation 97.3 ABG Base Excess -0.9 FiO2 45% Sodium Potassium Chloride Carbon Dioxide Anion Gap BUN Creatinine Est GFR ( Amer) Glucose Calcium Magnesium Total Bilirubin AST Alkaline Phosphatase Total Protein Albumin Urine Color STRAW Urine Appearance CLEAR Urine pH 6.0 Ur Specific [place] 1.003 Urine Protein NEGATIVE Urine Glucose (UA) NEGATIVE Urine Ketones NEGATIVE Urine Blood SMALL H Urine Nitrite NEGATIVE Ur Leukocyte Esterase NEGATIVE Blood Type Antibody Screen 06/03/19 06/03/19 06/03/19 03:40 03:40 04:40 WBC RBC Hgb Hct MCV MCH MCHC RDW Plt Count Seg Neutrophils % Carbonic Acid 1.15 HCO3/H2CO3 Ratio 19:1 ABG pH 7.40 ABG pCO2 38.3 ABG pO2 85.5 ABG HCO3 22.9 ABG O2 Saturation 96.5 ABG Base Excess -1.6 FiO2 30% Sodium 134.5 L Potassium 3.1 L Chloride 102 Carbon Dioxide 23 Anion Gap 10 BUN 9 Creatinine 0.47 L Est GFR ( Amer) > 60 Glucose 96 Calcium 8.1 L Magnesium 1.4 L Total Bilirubin AST Alkaline Phosphatase Total Protein Albumin Urine Color Urine Appearance Urine pH Ur Specific [place] Urine Protein Urine Glucose (UA) Urine Ketones Urine Blood Urine Nitrite Ur Leukocyte Esterase Blood Type Antibody Screen 06/03/19 06/03/19 06/03/19 11:50 15:23 15:23 WBC 11.1 H RBC 4.10 Hgb 12.9 Hct 37.9 MCV 92 MCH 31.4 MCHC 34.0 RDW 12.1 Plt Count 260 Seg Neutrophils % 78.1 H Carbonic Acid HCO3/H2CO3 Ratio ABG pH ABG pCO2 ABG pO2 ABG HCO3 ABG O2 Saturation ABG Base Excess FiO2 Sodium Potassium 3.9 Chloride Carbon Dioxide Anion Gap BUN Creatinine Est GFR ( Amer) Glucose Calcium Magnesium 2.1 Total Bilirubin AST Alkaline Phosphatase Total Protein Albumin Urine Color Urine Appearance Urine pH Ur Specific [place] Urine Protein Urine Glucose (UA) Urine Ketones Urine Blood Urine Nitrite Ur Leukocyte Esterase Blood Type A POSITIVE Antibody Screen NEGATIVE Impressions: Head CT 06/02/19 18:57 IMPRESSION: 1. No acute hemorrhage or mass effect 2. redundant loop of the orogastric tube extends superiorly into the nasopharynx; consider repositioning. Chest CT 06/02/19 20:03 IMPRESSION: 1. Areas of atelectasis/consolidation at the lung bases, left greater than right. No pleural effusions. 2. No hematoma, fluid collection, or contusion is seen in the body wall. 3. No acute intra-abdominal findings. Chest X-Ray 06/02/19 20:12 IMPRESSION: Findings suspicious for pulmonary edema along with small left pleural effusion. Enteric drainage tube tip is located within the gastric cardia with side-port located in the distal esophagus. Consider advancement for optimal positioning. copyright 2010 [employer]- All Rights Reserved Abdomen/Pelvis CT 06/02/19 20:53 IMPRESSION: 1. Areas of atelectasis/consolidation at the lung bases, left greater than right. No pleural effusions. 2. No hematoma, fluid collection, or contusion is seen in the body wall. 3. No acute intra-abdominal findings. KUB X-Ray 06/03/19 00:00 IMPRESSION: NASOGASTRIC TUBE WITH THE TIP IN THE STOMACH. NO RADIOGRAPHIC EVIDENCE FOR ACUTE ABDOMINAL DISEASE. Assessment & Plan - Diagnosis (1) Upper GI bleed Is this a current diagnosis for this admission?: Yes Plan: Impression: Bright red blood to gastric tube, now abated, likely secondary to gastritis, tube trauma etc. Rule out peptic ulcer disease, or occult malignancy Recommendations: 1. Agree with withholding nasogastric suction but leave tube in position.; treat with sucralfate and proton pump inhibitor has been ordered by the hospital service 2. We will follow with you; if bleeding recurs, upper endoscopy, with possible clipping versus epinephrine injection. 3. The above discussed with the medical and nursing staff. (2) Acute alcohol intoxication Qualifiers: Complication of substance-induced condition: with unspecified complication Qualified Code(s): F10.929 - Alcohol use, unspecified with intoxication, unspecified (3) Acute encephalopathy Is this a current diagnosis for this admission?: Yes (4) Acute respiratory failure with hypoxia Is this a current diagnosis for this admission?: Yes (5) Benzodiazepine overdose Is this a current diagnosis for this admission?: Yes
[2019-06-04] MEDS: IPRATROPIUM/ALBUTEROL 0.5-2.5 MG/3 ML AMPUL NEB SCH ×3 (00:37→15:35)
[2019-06-04] MEDS: PROPOFOL 1,000 MG/100 ML INFUS..BTL IV PRN ×5 (01:27→18:50)
[2019-06-04] MEDS: LORAZEPAM INJ 2 MG/1 ML VIAL IV PRN ×4 (01:27→22:49)
[2019-06-04] MEDS: NORMAL SALINE 500 ML with OCTREOTIDE ACETATE 500 MCG IV PRN ×2 (01:27)
[2019-06-04] MEDS: NORMAL SALINE 1000 ML 1,000 ML IV PRN ×2 (01:28→11:30)
[2019-06-04] MEDS: PIPERACILLIN SODIUM/TAZOBACTAM 3.375 GM in NORMAL SALINE 100 ML IV SCH ×4 (02:12→20:59)
[2019-06-04] MEDS: FENTANYL CITRATE INJ/PF 100 MCG/2 ML AMPUL IV PRN ×3 (04:03→20:25)
[2019-06-04 04:11] LABS: ABSOLUTE EOSINOPHILS # (AUTO) 0.2 10^3/uL (0.0-0.6); ABSOLUTE LYMPHOCYTES (AUTO) 2.1 10^3/uL (0.5-4.7); ABSOLUTE MONOCYTES (AUTO) 0.7 10^3/uL (0.1-1.4); ABSOLUTE NEUT (AUTO) 5.5 10^3/uL (1.7-8.2); BASOPHILS % (AUTO) 0.6 % (0-2); EOSINOPHILS % (AUTO) 2.6 % (0-6); HEMATOCRIT 32.8 % (36.0-47.0); HEMOGLOBIN 11.5 g/dL (12.0-15.5); LYMPHOCYTES % (AUTO) 24.7 % (13-45); MEAN CORPUSCULAR HEMOGLOBIN 32.6 pg (27.0-33.4); MEAN CORPUSCULAR HGB CONC 35.1 g/dL (32.0-36.0); MEAN CORPUSCULAR VOLUME 93 fl (80-97); MONOCYTES % (AUTO) 8.1 % (3-13); PLATELET COUNT 215 10^3/uL (150-450); RED BLOOD COUNT 3.53 10^6/uL (3.72-5.28); RED CELL DISTRIBUTION WIDTH 12.3 % (11.5-14.0); TOTAL CELLS COUNTED % (AUTO) 100 %; WHITE BLOOD COUNT 8.6 10^3/uL (4.0-10.5)
[2019-06-04 04:28] LABS: BLOOD UREA NITROGEN 4 mg/dL (7-20); CALCIUM 7.6 mg/dL (8.4-10.2); GLUCOSE 155 mg/dL (75-110); POTASSIUM 3.8 mmol/L (3.6-5.0)
[2019-06-04 04:34] LABS: CARBON DIOXIDE 26 mmol/L (22-30); CHLORIDE 112 mmol/L (98-107)
[2019-06-04 04:36] LABS: ANION GAP 2 (5-19)
[2019-06-04] MEDS: SUCRALFATE 1 GM TABLET PO SCH ×3 (05:25→21:03)
[2019-06-04] MEDS: NORMAL SALINE 100 ML with PANTOPRAZOLE SODIUM 80 MG IV PRN ×4 (05:25→15:38)
[2019-06-04] MEDS ORDERED: DIPHENHYDRAMINE HCL 50 MG/ML VIAL ONE (08:35)
[2019-06-04] MEDS ORDERED: ONDANSETRON HCL INJ/PF 4 MG/2 ML SDV ONE (08:35)
[2019-06-04] MEDS ORDERED: GLUCAGON,HUMAN RECOMB 1 MG INJ ONE (08:36)
[2019-06-04] MEDS ORDERED: NALOXONE HCL INJ/PF 0.4 MG/1 ML SDV ONE (08:36)
[2019-06-04] MEDS ORDERED: FLUMAZENIL INJ 0.5 MG/5 ML VIAL ONE (08:36)
[2019-06-04] MEDS ORDERED: FENTANYL CITRATE INJ/PF 100 MCG/2 ML AMPUL ONE (08:36)
[2019-06-04] MEDS ORDERED: EPINEPHRINE INJ 1 MG/10 ML DISP.SYRIN ONE (08:36)
[2019-06-04] MEDS ORDERED: MIDAZOLAM 2 MG/2 ML INJ ONE (08:36)
[2019-06-04] MEDS ORDERED: MIDAZOLAM HCL 50 MG/100 ML RTUINJ ONE (09:04)
[2019-06-04] MEDS: MIDAZOLAM HCL 50 MG/100 ML RTUINJ IV PRN ×2 (09:14→21:20)
[2019-06-04] MEDS ORDERED: ETHYL ALCOHOL IV PRN (09:57)
--- NOTE | 2019-06-04 10:59 | Operative Report ---
Operative Report DATE OF SURGERY: 06/04/19 PREOPERATIVE DIAGNOSIS: Upper gastrointestinal bleeding POSTOPERATIVE DIAGNOSIS: Same; actively bleeding gastric lesser curvature ulcer, gastritis, hyperplastic gastric polyps, antritis, duodenitis OPERATION: 1) EGD; 2) control of bleeding ulcer with Hemospray: 3) control of bleeding ulcer with sclerosing agent (ethanol) SURGEON: CYNDI ARRIAGA ANESTHESIA: LMAC TISSUE REMOVED OR ALTERED: None COMPLICATIONS: None ESTIMATED BLOOD LOSS: Minimal less than 5 mL INTRAOPERATIVE FINDINGS: Actively bleeding lesser curvature gastric ulcer; gastritis; diffuse presence of hyperplastic polyps; antritis; duodenitis PROCEDURE: The procedure was done at bedside in the ICU. The patient was already intubated via ET tube, she had an orogastric tube as well, she was placed in the right lateral decubitus with the right side elevated; the gastroscope was inserted through a mouthpiece into the mouth, pharynx, esophagus, and the stomach. This, was filled with blood clots and diffusely carpeted with hyperplastic polyps. The endoscope was advanced through the pylorus into the duodenum up to the third portion of duodenum. Mild duodenitis was identified without actively bleeding areas the same as the antrum which presented with inflammatory changes but no active bleeding. The endoscope was then withdrawn into the stomach and retroflexed: the GE junction appeared to be normal; hyperplastic polyps were present throughout the entire gastric mucosa, a bleeding 1.5 cm ulcer located in the lesser curvature was noted. This was partially covered by a large blood clot which was not disturbed. The bleeding ulcer was then sprayed with HemoSpray powder with control of bleeding. Following this, a total of 5 mL's of 1:4 and ethanol solution was injected in separate 0.5 mL aliquots throughout the entire bleeding ulcer area to control the bleeding. And then to the procedure no active bleeding was noted from the ulcer bed. The gastroscope was then withdrawn without difficulty. The patient tolerated the procedure well.
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
[2019-06-05] MEDS: FENTANYL CITRATE INJ/PF 100 MCG/2 ML AMPUL IV PRN ×5 (00:25→21:52)
[2019-06-05] MEDS: IPRATROPIUM/ALBUTEROL 0.5-2.5 MG/3 ML AMPUL NEB SCH ×3 (00:50→16:37)
[2019-06-05] MEDS: NORMAL SALINE 1000 ML 1,000 ML IV PRN ×3 (02:10→22:30)
[2019-06-05] MEDS: MIDAZOLAM HCL 50 MG/100 ML RTUINJ IV PRN ×6 (03:13→23:38)
[2019-06-05] MEDS: PROPOFOL 1,000 MG/100 ML INFUS..BTL IV PRN ×3 (03:15→18:27)
[2019-06-05] MEDS: PIPERACILLIN SODIUM/TAZOBACTAM 3.375 GM in NORMAL SALINE 100 ML IV SCH ×4 (03:22→20:17)
[2019-06-05] MEDS: LORAZEPAM INJ 2 MG/1 ML VIAL IV PRN ×3 (03:45→20:00)
[2019-06-05 04:22] LABS: ABSOLUTE BASOPHILS # (AUTO) 0.1 10^3/uL (0.0-0.2); ABSOLUTE EOSINOPHILS # (AUTO) 0.3 10^3/uL (0.0-0.6); ABSOLUTE LYMPHOCYTES (AUTO) 1.3 10^3/uL (0.5-4.7); ABSOLUTE MONOCYTES (AUTO) 0.6 10^3/uL (0.1-1.4); ABSOLUTE NEUT (AUTO) 5.6 10^3/uL (1.7-8.2); BASOPHILS % (AUTO) 0.7 % (0-2); HEMATOCRIT 33.3 % (36.0-47.0); HEMOGLOBIN 11.3 g/dL (12.0-15.5); LYMPHOCYTES % (AUTO) 16.5 % (13-45); MEAN CORPUSCULAR HEMOGLOBIN 31.9 pg (27.0-33.4); MEAN CORPUSCULAR HGB CONC 34.1 g/dL (32.0-36.0); MEAN CORPUSCULAR VOLUME 94 fl (80-97); MONOCYTES % (AUTO) 7.2 % (3-13); PLATELET COUNT 221 10^3/uL (150-450); RED BLOOD COUNT 3.56 10^6/uL (3.72-5.28); RED CELL DISTRIBUTION WIDTH 12.5 % (11.5-14.0); SEGMENTED NEUTROPHILS % (AUTO) 71.6 % (42-78); TOTAL CELLS COUNTED % (AUTO) 100 %; WHITE BLOOD COUNT 7.8 10^3/uL (4.0-10.5)
[2019-06-05 04:37] LABS: BLOOD UREA NITROGEN 3 mg/dL (7-20); CALCIUM 7.9 mg/dL (8.4-10.2); CHLORIDE 113 mmol/L (98-107); GLUCOSE 98 mg/dL (75-110); POTASSIUM 3.2 mmol/L (3.6-5.0)
[2019-06-05 04:42] LABS: CARBON DIOXIDE 23 mmol/L (22-30)
[2019-06-05 04:49] LABS: ANION GAP 5 (5-19)
[2019-06-05] MEDS: SUCRALFATE 1 GM TABLET PO SCH ×3 (05:04→21:32)
[2019-06-05] MEDS ORDERED: POTASSI CL 20 MEQ/50 ML RIDER 20 MEQ/50 ML RTUPB IV ONE (05:31)
[2019-06-05] MEDS: POTASSIUM CHLORIDE 20 MEQ/50 ML RTU IV SCH ×4 (05:37→15:12)
--- NOTE | 2019-06-05 06:22 | RADIOLOGY REPORT (SQ) ---
EXAM DESCRIPTION: X-ray single view chest. CLINICAL HISTORY: 59 years Female, resp failure COMPARISON: 06/02/2019 TECHNIQUE: Single portable x-ray view of the chest performed on 06/05/2019 at 6:02 AM FINDINGS: The lungs are well expanded. There is increasing volume loss in the left inferior hemithorax when compared to the prior study. Findings may be due to a combination of pleural fluid, atelectasis or pneumonic infiltrate. There is no evidence of a pneumothorax. The cardiac silhouette is grossly within normal limits. The mediastinal contours are normal. No acute osseous abnormality is identified. No focal soft tissue abnormalities are seen. Lines and tubes: The tip of the endotracheal tube terminates just below the level of the clavicular heads. The feeding tube extends below the diaphragm and the tip is not visualized on this examination. There are multiple overlying case monitor leads. IMPRESSION: 1. Increasing volume loss in the left inferior hemithorax when compared to the prior study. Findings may reflect a combination of pleural fluid, atelectasis or pneumonic infiltrate. 2. Grossly stable life support lines and tubes. The tip of the feeding tube is not visualized on this examination but extends below the diaphragm.
[2019-06-05 07:47] LABS: ARTERIAL BLOOD BASE EXCESS -0.8 mmol/L; ARTERIAL BLOOD H2CO3 1.04 mmol/L (1.05-1.35); ARTERIAL BLOOD HCO3 22.8 mmol/L (20-24); ARTERIAL BLOOD O2 SATURATION 95.7 % (94-98); ARTERIAL BLOOD PCO2 34.4 mmHg (35-45); ARTERIAL BLOOD PH 7.44 (7.35-7.45); ARTERIAL BLOOD PO2 75.7 mmHg (80-100); ARTERIAL BLOOD TOTAL CO2 23.9 mmol/L (21-25)
[2019-06-05 07:50] LABS: ARTERIAL BLOOD FIO2 30%
--- NOTE | 2019-06-05 09:18 | PDOC PROGRESS REPORT ---
Subjective Progress Note for:: 06/05/19 Subjective:: Patient intubated, sedated Reason For Visit: OVERDOSE,ASP PNEUMONIA,ACUTE RESPIRATORY FAILURE Physical Exam Vital Signs: Temp Pulse Resp BP Pulse Ox 99.3 F 73 16 113/69 95 06/05/19 08:00 06/05/19 08:21 06/05/19 08:00 06/05/19 08:00 06/05/19 08:00 Intake & Output 06/04/19 06/05/19 06/06/19 06:59 06:59 06:59 Intake Total 3797 3564 147 Output Total 5085 2635 750 Balance -1288 929 -603 Weight 54 kg 54.3 kg General appearance: PRESENT: other - Sedated and intubated Head exam: PRESENT: other - Orogastric tube inserted without evidence of fresh blood Respiratory exam: PRESENT: clear to auscultation mercedes Cardiovascular exam: PRESENT: RRR GI/Abdominal exam: PRESENT: soft Results Laboratory Results: 06/05/19 04:05 06/05/19 04:05 06/05/19 06/05/19 06/05/19 04:05 04:05 07:39 WBC 7.8 RBC 3.56 L Hgb 11.3 L Hct 33.3 L MCV 94 MCH 31.9 MCHC 34.1 RDW 12.5 Plt Count 221 Seg Neutrophils % 71.6 Carbonic Acid 1.04 L HCO3/H2CO3 Ratio 21:1 ABG pH 7.44 ABG pCO2 34.4 L ABG pO2 75.7 L ABG HCO3 22.8 ABG O2 Saturation 95.7 ABG Base Excess -0.8 FiO2 30% Sodium 141.1 Potassium 3.2 L Chloride 113 H Carbon Dioxide 23 Anion Gap 5 BUN 3 L Creatinine 0.40 L Est GFR ( Amer) > 60 Glucose 98 Calcium 7.9 L Magnesium 1.7 Impressions: Head CT 06/02/19 18:57 IMPRESSION: 1. No acute hemorrhage or mass effect 2. redundant loop of the orogastric tube extends superiorly into the nasopharynx; consider repositioning. Chest CT 06/02/19 20:03 IMPRESSION: 1. Areas of atelectasis/consolidation at the lung bases, left greater than right. No pleural effusions. 2. No hematoma, fluid collection, or contusion is seen in the body wall. 3. No acute intra-abdominal findings. Abdomen/Pelvis CT 06/02/19 20:53 IMPRESSION: 1. Areas of atelectasis/consolidation at the lung bases, left greater than right. No pleural effusions. 2. No hematoma, fluid collection, or contusion is seen in the body wall. 3. No acute intra-abdominal findings. KUB X-Ray 06/03/19 00:00 IMPRESSION: NASOGASTRIC TUBE WITH THE TIP IN THE STOMACH. NO RADIOGRAPHIC EVIDENCE FOR ACUTE ABDOMINAL DISEASE. Chest X-Ray 06/05/19 06:00 IMPRESSION: 1. Increasing volume loss in the left inferior hemithorax when compared to the prior study. Findings may reflect a combination of pleural fluid, atelectasis or pneumonic infiltrate. 2. Grossly stable life support lines and tubes. The tip of the feeding tube is not visualized on this examination but extends below the diaphragm. Assessment & Plan - Diagnosis (1) Gastric ulcer with hemorrhage Is this a current diagnosis for this admission?: Yes (2) Upper GI bleed Is this a current diagnosis for this admission?: Yes - Plan Summary Plan Summary: Assessment: Postoperative day #1 following upper endoscopy with control of bleeding unless a curvature ulcer Patient hemoglobin/hematocrit stable Good urine output No blood noted in the orogastric tube Plan: I am recommended to continue high-dose Protonix intravenously (40 mg IV push every 8 hours) Continue Carafate 1 g per orogastric tube every 6 hours Patient can be started on tube feeding via orogastric tube in about 10 mL's per hour, check residuals, and increase rate as tolerated.
[2019-06-05] MEDS: PANTOPRAZOLE SODIUM 40 MG VIAL IV SCH ×2 (09:19→17:15)
[2019-06-05] MEDS ORDERED: MAGNESIUM SULFATE/D5W 1 GM/100 ML RTUPB IV ONE ×2 (09:48→10:30)
[2019-06-05] MEDS ORDERED: PANTOPRAZOLE SODIUM 40 MG VIAL IV SCH ×2 (10:00→14:00)
--- NOTE | 2019-06-05 11:48 | PDOC PROGRESS REPORT ---
Subjective Progress Note for:: 06/05/19 Subjective:: BP low, Desat check EKG Reason For Visit: OVERDOSE,ASP PNEUMONIA,ACUTE RESPIRATORY FAILURE Physical Exam Vital Signs: Temp Pulse Resp BP Pulse Ox 99.3 F 73 16 97/49 L 97 06/05/19 11:36 06/05/19 08:21 06/05/19 11:36 06/05/19 11:36 06/05/19 11:36 Intake & Output 06/04/19 06/05/19 06/06/19 06:59 06:59 06:59 Intake Total 3797 3564 365 Output Total 5059 2635 1050 Balance -1288 929 -685 Weight 54 kg 54.3 kg General appearance: PRESENT: no acute distress, other - intubated and sedated Head exam: PRESENT: atraumatic, normocephalic Ear exam: PRESENT: normal external ear exam. ABSENT: bleeding, drainage Mouth exam: PRESENT: other - Ett and OG tube Respiratory exam: PRESENT: clear to auscultation mercedes - Anteriorly, symmetrical, unlabored. ABSENT: accessory muscle use, rales, rhonchi, tachypnea Cardiovascular exam: PRESENT: RRR - With Occasional irregular beats GI/Abdominal exam: PRESENT: diminished bowel sounds, soft. ABSENT: distended, tenderness Rectal exam: PRESENT: deferred Gentrourinary exam: PRESENT: indwelling catheter Extremities exam: ABSENT: pedal edema Musculoskeletal exam: PRESENT: normal inspection Neurological exam: ABSENT: awake Psychiatric exam: ABSENT: agitated, anxious Focused psych exam: ABSENT: restlessness Results Laboratory Results: 06/05/19 04:05 06/05/19 06/05/19 06/05/19 04:05 04:05 07:39 WBC 7.8 RBC 3.56 L Hgb 11.3 L Hct 33.3 L MCV 94 MCH 31.9 MCHC 34.1 RDW 12.5 Plt Count 221 Seg Neutrophils % 71.6 Carbonic Acid 1.04 L HCO3/H2CO3 Ratio 21:1 ABG pH 7.44 ABG pCO2 34.4 L ABG pO2 75.7 L ABG HCO3 22.8 ABG O2 Saturation 95.7 ABG Base Excess -0.8 FiO2 30% Sodium 141.1 Potassium 3.2 L Chloride 113 H Carbon Dioxide 23 Anion Gap 5 BUN 3 L Creatinine 0.40 L Est GFR ( Amer) > 60 Glucose 98 Calcium 7.9 L Magnesium 1.7 Impressions: Head CT 06/02/19 18:57 IMPRESSION: 1. No acute hemorrhage or mass effect 2. redundant loop of the orogastric tube extends superiorly into the nasopharynx; consider repositioning. Chest CT 06/02/19 20:03 IMPRESSION: 1. Areas of atelectasis/consolidation at the lung bases, left greater than right. No pleural effusions. 2. No hematoma, fluid collection, or contusion is seen in the body wall. 3. No acute intra-abdominal findings. Abdomen/Pelvis CT 06/02/19 20:53 IMPRESSION: 1. Areas of atelectasis/consolidation at the lung bases, left greater than right. No pleural effusions. 2. No hematoma, fluid collection, or contusion is seen in the body wall. 3. No acute intra-abdominal findings. KUB X-Ray 06/03/19 00:00 IMPRESSION: NASOGASTRIC TUBE WITH THE TIP IN THE STOMACH. NO RADIOGRAPHIC EVIDENCE FOR ACUTE ABDOMINAL DISEASE. Chest X-Ray 06/05/19 06:00 IMPRESSION: 1. Increasing volume loss in the left inferior hemithorax when compared to the prior study. Findings may reflect a combination of pleural fluid, atelectasis or pneumonic infiltrate. 2. Grossly stable life support lines and tubes. The tip of the feeding tube is not visualized on this examination but extends below the diaphragm.
[2019-06-05 12:00] LABS: ANION GAP 6 (5-19); BLOOD UREA NITROGEN 3 mg/dL (7-20); CARBON DIOXIDE 21 mmol/L (22-30); CHLORIDE 113 mmol/L (98-107); GLUCOSE 115 mg/dL (75-110); POTASSIUM 3.4 mmol/L (3.6-5.0)
[2019-06-05] MEDS ORDERED: POTASSI CL 20 MEQ/50 ML RIDER 40 MEQ/100 ML RTUPB IV ONE (13:00)
[2019-06-05] MEDS: AMINO AC/PROTEIN HYDR/WHEY PRO 11 GM/45 ML PKT GT SCH ×2 (15:10→17:15)
[2019-06-05] MEDS ORDERED: NORMAL SALINE 1000 ML 1,000 ML IV PRN (18:06)
[2019-06-05] MEDS ORDERED: VANCOMYCIN HCL 0 MG in DEXTROSE 5%-WATER 250 ML IV NR (18:30)
[2019-06-05 18:39] LABS: ANION GAP 7 (5-19); BLOOD UREA NITROGEN 4 mg/dL (7-20); CALCIUM 7.8 mg/dL (8.4-10.2); CARBON DIOXIDE 20 mmol/L (22-30); CHLORIDE 112 mmol/L (98-107); GLUCOSE 95 mg/dL (75-110)
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
[2019-06-05] MEDS ORDERED: VANCOMYCIN HCL 1,250 MG in DEXTROSE 5%-WATER 250 ML IV ONE (20:00)
--- NOTE | 2019-06-05 23:23 | EKG REPORT ---
SEVERITY:- ABNORMAL ECG - SINUS RHYTHM PAIRED VENTRICULAR PREMATURE COMPLEXES LOW VOLTAGE IN FRONTAL LEADS BORDERLINE T ABNORMALITIES, ANTERIOR LEADS : Confirmed by: Giovana Wright 05-Jun-2019 23:21:59
[2019-06-06] MEDS: IPRATROPIUM/ALBUTEROL 0.5-2.5 MG/3 ML AMPUL NEB SCH ×3 (01:02→15:56)
[2019-06-06] MEDS: PANTOPRAZOLE SODIUM 40 MG VIAL IV SCH ×3 (02:03→17:38)
[2019-06-06] MEDS: PIPERACILLIN SODIUM/TAZOBACTAM 3.375 GM in NORMAL SALINE 100 ML IV SCH ×4 (02:05→21:34)
[2019-06-06] MEDS: FENTANYL CITRATE INJ/PF 100 MCG/2 ML AMPUL IV PRN ×4 (03:06→21:36)
[2019-06-06] MEDS: MIDAZOLAM HCL 50 MG/100 ML RTUINJ IV PRN ×5 (03:19→23:30)
[2019-06-06 04:17] LABS: HEMATOCRIT 31.8 % (36.0-47.0); HEMOGLOBIN 10.7 g/dL (12.0-15.5); MEAN CORPUSCULAR HEMOGLOBIN 31.4 pg (27.0-33.4); MEAN CORPUSCULAR HGB CONC 33.6 g/dL (32.0-36.0); MEAN CORPUSCULAR VOLUME 94 fl (80-97); PLATELET COUNT 214 10^3/uL (150-450); RED CELL DISTRIBUTION WIDTH 12.5 % (11.5-14.0); WHITE BLOOD COUNT 7.7 10^3/uL (4.0-10.5)
[2019-06-06] MEDS: PROPOFOL 1,000 MG/100 ML INFUS..BTL IV PRN ×3 (04:37→21:38)
[2019-06-06 04:45] LABS: ANION GAP 6 (5-19); BLOOD UREA NITROGEN 4 mg/dL (7-20); CALCIUM 7.9 mg/dL (8.4-10.2); CARBON DIOXIDE 20 mmol/L (22-30); CHLORIDE 113 mmol/L (98-107); GLUCOSE 80 mg/dL (75-110); POTASSIUM 3.2 mmol/L (3.6-5.0)
[2019-06-06] MEDS ORDERED: POTASSI CL 20 MEQ/50 ML RIDER 20 MEQ/50 ML RTUPB IV ONE (05:04)
[2019-06-06] MEDS: SUCRALFATE 1 GM TABLET PO SCH ×3 (05:06→21:40)
[2019-06-06] MEDS ORDERED: VANCOMYCIN HCL INJ 1000 MG VIAL ONE (05:15)
[2019-06-06] MEDS: POTASSIUM CHLORIDE 20 MEQ/50 ML RTU IV SCH ×2 (05:30→08:10)
[2019-06-06] MEDS: VANCOMYCIN HCL 750 MG in DEXTROSE 5%-WATER 250 ML IV SCH ×2 (05:38→17:38)
[2019-06-06] MEDS: LORAZEPAM INJ 2 MG/1 ML VIAL IV PRN ×3 (06:18→18:15)
[2019-06-06] MEDS: POTASSI CL 40 MEQ/NS 1L 1,000 ML IV PRN (08:14)
[2019-06-06] MEDS ORDERED: BISACODYL 10 MG SUPP.RECT PR PRN (08:43)
[2019-06-06 08:44] LABS: ARTERIAL BLOOD H2CO3 0.99 mmol/L (1.05-1.35); ARTERIAL BLOOD HCO3 20.8 mmol/L (20-24); ARTERIAL BLOOD O2 SATURATION 93.3 % (94-98); ARTERIAL BLOOD PCO2 32.9 mmHg (35-45); ARTERIAL BLOOD PH 7.42 (7.35-7.45); ARTERIAL BLOOD PO2 64.8 mmHg (80-100); ARTERIAL BLOOD TOTAL CO2 21.8 mmol/L (21-25)
[2019-06-06] MEDS ORDERED: LACTULOSE SYRUP 20 GM/30 ML UDCUP PO PRN (08:44)
--- NOTE | 2019-06-06 08:49 | PDOC PROGRESS REPORT ---
Subjective Progress Note for:: 06/06/19 Subjective:: Patient remains intubated and sedated. She did have a weaning trial for 2 hours last night but became agitated. Reason For Visit: OVERDOSE,ASP PNEUMONIA,ACUTE RESPIRATORY FAILURE Physical Exam Vital Signs: Temp Pulse Resp BP Pulse Ox 99.3 F 92 16 98/49 L 93 06/06/19 08:34 06/06/19 01:03 06/06/19 08:34 06/06/19 08:34 06/06/19 08:34 Intake & Output 06/05/19 06/06/19 06/07/19 06:59 06:59 06:59 Intake Total 3564 3588 300 Output Total 2635 3700 Balance 929 -112 300 Weight 54.3 kg 55.7 kg General appearance: PRESENT: no acute distress - Appears to be resting comfortably on propofol and Versed., well-developed Head exam: PRESENT: atraumatic, normocephalic Eye exam: PRESENT: conjunctiva pale. ABSENT: scleral icterus Ear exam: PRESENT: normal external ear exam. ABSENT: bleeding, drainage Mouth exam: PRESENT: other - Orogastric and endotracheal tubes in place Respiratory exam: PRESENT: decreased breath sounds - Right base. Inspiration limited to 450 mL tidal volume., symmetrical, unlabored. ABSENT: rales, rhonchi, tachypnea, wheezes Cardiovascular exam: PRESENT: RRR, +S1, +S2 GI/Abdominal exam: PRESENT: diminished bowel sounds, soft. ABSENT: distended, guarding, tenderness Rectal exam: PRESENT: deferred Gentrourinary exam: PRESENT: indwelling catheter Extremities exam: PRESENT: +1 edema - Bilateral upper extremities. ABSENT: joint swelling, pedal edema Musculoskeletal exam: PRESENT: normal inspection - Normal inspection of lower extremities. Puffy upper extremities as above.. ABSENT: deformity Neurological exam: ABSENT: awake Psychiatric exam: ABSENT: agitated Focused psych exam: ABSENT: restlessness Results Laboratory Results: 06/06/19 04:01 06/06/19 04:01 06/05/19 06/05/19 06/05/19 11:33 11:33 18:08 WBC RBC Hgb Hct MCV MCH MCHC RDW Plt Count Sodium 139.8 139.1 Potassium 3.4 L 4.0 Chloride 113 H 112 H Carbon Dioxide 21 L 20 L Anion Gap 6 7 BUN 3 L 4 L Creatinine 0.43 L 0.44 L Est GFR ( Amer) > 60 > 60 Glucose 115 H 95 Lactic Acid Calcium 8.0 L 7.8 L Magnesium 2.2 06/05/19 06/06/19 06/06/19 18:49 04:01 04:01 WBC 7.7 RBC 3.40 L Hgb 10.7 L Hct 31.8 L MCV 94 MCH 31.4 MCHC 33.6 RDW 12.5 Plt Count 214 Sodium 139.4 Potassium 3.2 L Chloride 113 H Carbon Dioxide 20 L Anion Gap 6 BUN 4 L Creatinine 0.37 L Est GFR ( Amer) > 60 Glucose 80 Lactic Acid 0.6 L Calcium 7.9 L Magnesium 1.7 Impressions: Head CT 06/02/19 18:57 IMPRESSION: 1. No acute hemorrhage or mass effect 2. redundant loop of the orogastric tube extends superiorly into the nasopharynx; consider repositioning. Chest CT 06/02/19 20:03 IMPRESSION: 1. Areas of atelectasis/consolidation at the lung bases, left greater than right. No pleural effusions. 2. No hematoma, fluid collection, or contusion is seen in the body wall. 3. No acute intra-abdominal findings. Abdomen/Pelvis CT 06/02/19 20:53 IMPRESSION: 1. Areas of atelectasis/consolidation at the lung bases, left greater than right. No pleural effusions. 2. No hematoma, fluid collection, or contusion is seen in the body wall. 3. No acute intra-abdominal findings. KUB X-Ray 06/03/19 00:00 IMPRESSION: NASOGASTRIC TUBE WITH THE TIP IN THE STOMACH. NO RADIOGRAPHIC EVIDENCE FOR ACUTE ABDOMINAL DISEASE. Chest X-Ray 06/05/19 06:00 IMPRESSION: 1. Increasing volume loss in the left inferior hemithorax when compared to the prior study. Findings may reflect a combination of pleural fluid, atelectasis or pneumonic infiltrate. 2. Grossly stable life support lines and tubes. The tip of the feeding tube is not visualized on this examination but extends below the diaphragm. Assessment and Plan - Diagnosis (1) Acute respiratory failure with hypoxia Is this a current diagnosis for this admission?: Yes Plan: Secondary to benzodiazepine overdose and alcohol intoxication. Intubated. On minimal vent settings. 06/04: Doing well on minimal vent settings. Start weaning trials tomorrow. 06/05/2019-the patient remains intubated. When we lower the sedation she gets very restless. We will start weaning trials. She is at risk for ventilator associated pneumonia versus the initial aspiration pneumonia suspected. 06/05/2019-the patient remains intubated and sedated. She was awake this afternoon. We will continue trials of sedation vacation and institute weaning trials. 06/06/2019-we will continue to trial sedation vacation and weaning. Pulmonology will be seeing the patient as well. The patient is likely getting through the window for detox. I will also add medications to help with agitation and anxiety such as Depakote. This may help ease the transition of decrease sedation to extubation. (2) Acute encephalopathy Is this a current diagnosis for this admission?: Yes Plan: Currently intubated. 06/05/2019-the patient does have windows of responsiveness. At the time of this encounter she is not responding. Will continue to assess as sedation decreases. Consider mood stabilizer such as Depakote. She may also benefit from SSRI therapy. 06/05/2019-she was actually awake this afternoon and she appeared to understand what her son was saying. She maintained eye contact temporarily. Encephalopathy appears to be improving but it is inconsistent due to sedation. 06/06/2019-not awake at the time of this encounter. Because of the high alcohol level the encephalopathy is most likely toxic from alcohol and benzodiazepines. The alcohol should be metabolized. She requires Versed for sedation while intubated. We are trying to wean this as well. Full evaluation for encephalopathy will be difficult until she is extubated. (3) Upper GI bleed Is this a current diagnosis for this admission?: Yes Plan: Will start Protonix and Sandostatin drip. Type and screen. Will consult surgery. 06/04: She just had an EGD which showed actively bleeding gastric ulcer. Bleeding was stopped with Hemospray and ethanol sclerosis by surgicalist. Switch Protonix drip to IV Protonix after current drip is consumed. DC sandostatin. 06/05/2019-reviewed with Dr. Trinh. She had a large ulcer on the lesser curvature. It was injected. The tissue appeared friable. She also had gastritis and esophagitis. We will change to Protonix 40 mg every 8 hours IV and continue the Carafate. We will continue to monitor the hemoglobin. 06/05/2019-hemoglobin is stable and so it is unlikely that GI bleeding is contributing to low blood pressure. 06/06/2019-hemoglobin is improving. Bleeding has likely stopped altogether. A stool for Helicobacter pylori antigen has been ordered. (4) Alcohol intoxication Qualifiers: Complication of substance-induced condition: uncomplicated Qualified Code(s): F10.920 - Alcohol use, unspecified with intoxication, uncomplicated Is this a current diagnosis for this admission?: Yes Plan: Supportive care 06/05/2019-the patient is on Versed and has as needed lorazepam available. The Versed should cover withdrawal symptoms. We will continue to monitor closely. 06/06/2019-serum alcohol 337 on admission. Medication adjustments will be made to try and ease the transition off of Versed for extubation. (5) Aspiration pneumonia Is this a current diagnosis for this admission?: Yes Plan: On Zosyn. 06/05/2019-patient is on Zosyn. Sputum Gram stain did show gram-positive cocci. I have added vancomycin. I will have pharmacy dose the medication. Chest x-ray today showed increased density at the left base. 06/05/2019-the Gram stain for the sputum specimen is available. There are gram- positive cocci in pairs with some yeast and some gram-positive rods. There were 2+ polys. There were epithelial cells. I am going to add vancomycin to the Zosyn. I have ordered repeat blood cultures and a lactic acid. If infection is contributing to the hypotension then expanding antibiotics should help. 06/06/2019-continue vancomycin and Zosyn at this time. (6) Suicide attempt Is this a current diagnosis for this admission?: Yes Plan: Psych consulted. 06/05/2019-the patient drank alcohol and took benzodiazepines. When she is extubated psychiatry will assess the patient. Consider antidepressant therapy. The QT interval is still normal. We will monitor if we add antidepressant therapy. 06/06/2019-pending psychiatric evaluation once extubated. (7) On parenteral nutrition Is this a current diagnosis for this admission?: Yes Plan: 06/05/2019-surgery has approved so we will institute tube feedings. Nutrition has suggested the tube feed formula as well as suggested rates. Flushes every 4 hours as well. 06/06/2019-appears to be tolerating tube feeds. (8) Hypotension Qualifiers: Hypotension type: hypotension due to hypovolemia Qualified Code(s): I95.89 - Other hypotension; E86.1 - Hypovolemia Is this a current diagnosis for this admission?: Yes Plan: 06/05/2019-the patient did have a negative fluid balance 2 days ago. Her fluid balance of 5 today is negative. I will give 1 L of fluid at 500 mL/h over 2 hours. I will check your blood pressure response. I did order repeat blood cultures and a lactic acid level. She has been on Zosyn but sepsis is a possibility. Her low blood pressure control to be due to the propofol and Versed. We will try to keep her map greater than 65. 06/06/2019-blood pressure still low. She did receive some fluid. We would like to keep her map greater than 65. - Time Time Spent with patient: 25-34 minutes Medications reviewed and adjusted accordingly: Yes
[2019-06-06 08:52] LABS: ARTERIAL BLOOD FIO2 25%
[2019-06-06 08:57] LABS: ABSOLUTE RETICS # 0.039 10^6/uL (0.028-0.122); RETICULOCYTE COUNT (AUTO) 1.16 % (0.66-2.85)
[2019-06-06 09:06] LABS: IRON(TIBC) 22.5 ug/dL (37-170)
[2019-06-06] MEDS: AMINO AC/PROTEIN HYDR/WHEY PRO 11 GM/45 ML PKT GT SCH ×3 (10:08→17:41)
[2019-06-06] MEDS: CITALOPRAM HYDROBROMIDE 20 MG TABLET NG SCH (10:08)
[2019-06-06] MEDS: VALPROATE SODIUM SYRUP 250 MG/5 ML UDCUP NG SCH ×2 (10:08→21:40)
[2019-06-06] MEDS: BUSPIRONE HCL 10 MG TABLET NG SCH ×2 (10:08→21:40)
[2019-06-06 10:13] LABS: FOLATE 8.41 ng/mL (>2.76)
--- NOTE | 2019-06-06 14:50 | PDOC CONSULTATION ---
Consultation Consult Date: 06/06/19 Attending physician:: CHASITY VALDES Provider Consulted: SILVA HOYOS Consult reason:: acute resp failure History of Present Illness Admission Date/PCP: 06/02/19 22:26 SHMUEL PLEITEZ MD History of Present Illness: CRESENCIO BHATTI is a 59 year old female,, Arrived to emergency room unresponsive and was subsequently intubated she is currently in the ICU intubated sedated. She has a long history of EtOH abuse and suicide attempts and apparently took a large amount of benzodiazepines as well as alcohol when she was found at home unresponsive. Past Medical History Cardiac Medical History: Reports: Hypertension - MEDICATED Denies: Myocardial Infarction Pulmonary Medical History: Reports: Asthma - humidity affected, inhaler PRN/LAST EPISODE FALL 2013 Denies: Bronchitis, Chronic Obstructive Pulmonary Disease (COPD), Pneumonia Neurological Medical History: Denies: Seizures Endocrine Medical History: Reports: Hypothyroidism GI Medical History: Denies: Hepatitis, Hiatal Hernia Musculoskeltal Medical History: Reports: Arthritis - Osteoporosis Spine, arms and hands Psychiatric Medical History: Reports: Depression Hematology: Denies: Anemia, Sickle Cell Disease Past Surgical History Past Surgical History: Reports: Other - Cataracts Denies: Amputation, Hysterectomy, Mastectomy Social History Information Source: [facility] Records Lives with: Alone Smoking Status: Unknown if Ever Smoked Frequency of Alcohol Use: Heavy Hx Prescription Drug Abuse: Yes - Advance Directive Resuscitation Status: Full Code Family History Family History: CAD, Hyperlipidemia, Hypertension, Malignancy Parental Family History Reviewed: No Children Family History Reviewed: No Sibling(s) Family History Reviewed.: No Medication/Allergy Home Medications: Unobtainable 06/03/19 Allergies/Adverse Reactions: bupropion HCl [From Wellbutrin] Allergy (Severe, Verified 01/24/17 09:11) Hives Review of Systems ROS unobtainable: Due to endotracheal tube, Due to mental status Physical Exam Vital Signs: Temp Pulse Resp BP Pulse Ox 99.3 F 70 16 98/49 L 98 06/06/19 08:34 06/06/19 08:45 06/06/19 08:45 06/06/19 08:34 06/06/19 08:45 Intake & Output 06/05/19 06/06/19 06/07/19 06:59 06:59 06:59 Intake Total 7857 4022 300 Output Total 2635 3700 1400 Balance 929 -112 -1100 Weight 54.3 kg 55.7 kg General appearance: PRESENT: no acute distress, disheveled, well-developed, well-nourished. ABSENT: cooperative Head exam: PRESENT: atraumatic, normocephalic Eye exam: PRESENT: conjunctiva pale. ABSENT: EOMI, nystagmus Mouth exam: PRESENT: dry mucosa, neck supple, tongue midline, other - ET tube Neck exam: ABSENT: carotid bruit, full ROM, JVD, lymphadenopathy, meningismus, tenderness, thyromegaly, tracheal deviation, tracheostomy, other Respiratory exam: PRESENT: decreased breath sounds, prolonged expiratory phas, rales, rhonchi, symmetrical, unlabored. ABSENT: retraction, stridor, tachypnea Cardiovascular exam: PRESENT: RRR, +S1, +S2. ABSENT: tachycardia Pulses: PRESENT: normal radial pulses GI/Abdominal exam: PRESENT: soft. ABSENT: distended, guarding, mass, tenderness Gentrourinary exam: PRESENT: indwelling catheter Extremities exam: ABSENT: calf tenderness, clubbing, joint swelling, tenderness Musculoskeletal exam: ABSENT: ambulatory, deformity, dislocation Neurological exam: ABSENT: awake Skin exam: PRESENT: dry, warm Results Laboratory Results: 06/06/19 04:01 06/06/19 04:01 06/05/19 06/05/19 06/05/19 11:33 11:33 18:08 WBC RBC Hgb Hct MCV MCH MCHC RDW Plt Count Retic Count (auto) Carbonic Acid HCO3/H2CO3 Ratio ABG pH ABG pCO2 ABG pO2 ABG HCO3 ABG O2 Saturation ABG Base Excess FiO2 Sodium 139.8 139.1 Potassium 3.4 L 4.0 Chloride 113 H 112 H Carbon Dioxide 21 L 20 L Anion Gap 6 7 BUN 3 L 4 L Creatinine 0.43 L 0.44 L Est GFR ( Amer) > 60 > 60 Glucose 115 H 95 Lactic Acid Calcium 8.0 L 7.8 L Magnesium 2.2 06/05/19 06/06/19 06/06/19 18:49 04:01 04:01 WBC 7.7 RBC 3.40 L Hgb 10.7 L Hct 31.8 L MCV 94 MCH 31.4 MCHC 33.6 RDW 12.5 Plt Count 214 Retic Count (auto) Carbonic Acid HCO3/H2CO3 Ratio ABG pH ABG pCO2 ABG pO2 ABG HCO3 ABG O2 Saturation ABG Base Excess FiO2 Sodium 139.4 Potassium 3.2 L Chloride 113 H Carbon Dioxide 20 L Anion Gap 6 BUN 4 L Creatinine 0.37 L Est GFR ( Amer) > 60 Glucose 80 Lactic Acid 0.6 L Calcium 7.9 L Magnesium 1.7 06/06/19 06/06/19 04:01 08:35 WBC RBC Hgb Hct MCV MCH MCHC RDW Plt Count Retic Count (auto) 1.16 Carbonic Acid 0.99 L HCO3/H2CO3 Ratio 21:1 ABG pH 7.42 ABG pCO2 32.9 L ABG pO2 64.8 L ABG HCO3 20.8 ABG O2 Saturation 93.3 L ABG Base Excess -3.0 FiO2 25% Sodium Potassium Chloride Carbon Dioxide Anion Gap BUN Creatinine Est GFR ( Amer) Glucose Lactic Acid Calcium Magnesium Impressions: Head CT 06/02/19 18:57 IMPRESSION: 1. No acute hemorrhage or mass effect 2. redundant loop of the orogastric tube extends superiorly into the nasopharynx; consider repositioning. Chest CT 06/02/19 20:03 IMPRESSION: 1. Areas of atelectasis/consolidation at the lung bases, left greater than right. No pleural effusions. 2. No hematoma, fluid collection, or contusion is seen in the body wall. 3. No acute intra-abdominal findings. Abdomen/Pelvis CT 06/02/19 20:53 IMPRESSION: 1. Areas of atelectasis/consolidation at the lung bases, left greater than right. No pleural effusions. 2. No hematoma, fluid collection, or contusion is seen in the body wall. 3. No acute intra-abdominal findings. KUB X-Ray 06/03/19 00:00 IMPRESSION: NASOGASTRIC TUBE WITH THE TIP IN THE STOMACH. NO RADIOGRAPHIC EVIDENCE FOR ACUTE ABDOMINAL DISEASE. Chest X-Ray 06/05/19 06:00 IMPRESSION: 1. Increasing volume loss in the left inferior hemithorax when compared to the prior study. Findings may reflect a combination of pleural fluid, atelectasis or pneumonic infiltrate. 2. Grossly stable life support lines and tubes. The tip of the feeding tube is not visualized on this examination but extends below the diaphragm. Assessment & Plan - Diagnosis (1) Alcohol intoxication Qualifiers: Complication of substance-induced condition: uncomplicated Qualified Code(s): F10.920 - Alcohol use, unspecified with intoxication, uncomplicated Is this a current diagnosis for this admission?: Yes Plan: Initial alcohol at time of presentation 375 supplemental vitamins DVT prophylaxis (2) Aspiration pneumonia Is this a current diagnosis for this admission?: Yes Plan: Prophylaxis for cap (3) Acute respiratory failure with hypoxia Is this a current diagnosis for this admission?: Yes Plan: 65/.25 = 260 - Time Total Critical Time (Minutes): 55
--- NOTE | 2019-06-06 17:50 | PDOC PROGRESS REPORT ---
Subjective Progress Note for:: 06/06/19 Subjective:: This is a 59-year-old female with a recent upper GI bleed, requiring endoscopic intervention. Patient is currently intubated and sedated, and a review of systems is unable to be obtained. Overnight events were provided by the nursing staff. Per nursing report, there is been no further bleeding from an upper GI source. Her tube feedings are running, her residuals are minimal and nonbloody. She is not exhibiting tachycardia. Reason For Visit: OVERDOSE,ASP PNEUMONIA,ACUTE RESPIRATORY FAILURE Physical Exam Vital Signs: Temp Pulse Resp BP Pulse Ox 99.7 F 89 18 91/64 L 93 06/06/19 16:00 06/06/19 16:00 06/06/19 16:00 06/06/19 16:00 06/06/19 16:00 Intake & Output 06/05/19 06/06/19 06/07/19 06:59 06:59 06:59 Intake Total 3564 3688 714 Output Total 2635 3700 2850 Balance 359 12 -0186 Weight 54.3 kg 55.7 kg General appearance: PRESENT: no acute distress, other - Intubated and sedated Head exam: PRESENT: atraumatic, normocephalic Mouth exam: PRESENT: moist, neck supple Neck exam: ABSENT: thyromegaly, tracheal deviation Respiratory exam: PRESENT: other - Coarse bilaterally. Mechanical ventilation is ongoing. Cardiovascular exam: PRESENT: RRR Pulses: PRESENT: normal radial pulses GI/Abdominal exam: PRESENT: soft. ABSENT: distended Extremities exam: ABSENT: clubbing Neurological exam: ABSENT: alert, awake Psychiatric exam: ABSENT: agitated, anxious Skin exam: ABSENT: cyanosis, erythema, jaundice Results Laboratory Results: 06/06/19 04:01 06/06/19 14:40 06/05/19 06/05/19 06/06/19 18:08 18:49 04:01 WBC RBC Hgb Hct MCV MCH MCHC RDW Plt Count Retic Count (auto) Carbonic Acid HCO3/H2CO3 Ratio ABG pH ABG pCO2 ABG pO2 ABG HCO3 ABG O2 Saturation ABG Base Excess FiO2 Sodium 139.1 139.4 Potassium 4.0 3.2 L Chloride 112 H 113 H Carbon Dioxide 20 L 20 L Anion Gap 7 6 BUN 4 L 4 L Creatinine 0.44 L 0.37 L Est GFR ( Amer) > 60 > 60 Glucose 95 80 Lactic Acid 0.6 L Calcium 7.8 L 7.9 L Magnesium 1.7 Iron TIBC % Saturation Ferritin Vitamin B12 Folate 06/06/19 06/06/19 06/06/19 04:01 04:01 04:01 WBC 7.7 RBC 3.40 L Hgb 10.7 L Hct 31.8 L MCV 94 MCH 31.4 MCHC 33.6 RDW 12.5 Plt Count 214 Retic Count (auto) 1.16 Carbonic Acid HCO3/H2CO3 Ratio ABG pH ABG pCO2 ABG pO2 ABG HCO3 ABG O2 Saturation ABG Base Excess FiO2 Sodium Potassium Chloride Carbon Dioxide Anion Gap BUN Creatinine Est GFR ( Amer) Glucose Lactic Acid Calcium Magnesium Iron 22.5 L TIBC 214 L % Saturation 11 Ferritin 82.10 Vitamin B12 959.0 H Folate 8.41 06/06/19 06/06/19 08:35 14:40 WBC RBC Hgb Hct MCV MCH MCHC RDW Plt Count Retic Count (auto) Carbonic Acid 0.99 L HCO3/H2CO3 Ratio 21:1 ABG pH 7.42 ABG pCO2 32.9 L ABG pO2 64.8 L ABG HCO3 20.8 ABG O2 Saturation 93.3 L ABG Base Excess -3.0 FiO2 25% Sodium Potassium 3.7 Chloride Carbon Dioxide Anion Gap BUN Creatinine Est GFR ( Amer) Glucose Lactic Acid Calcium Magnesium Iron TIBC % Saturation Ferritin Vitamin B12 Folate 06/03/19 13:15 Tracheal Aspirate Gram Stain - Final 06/03/19 13:15 Tracheal Aspirate Sputum Culture - Final NORMAL TERI Impressions: Head CT 06/02/19 18:57 IMPRESSION: 1. No acute hemorrhage or mass effect 2. redundant loop of the orogastric tube extends superiorly into the nasopharynx; consider repositioning. Chest CT 06/02/19 20:03 IMPRESSION: 1. Areas of atelectasis/consolidation at the lung bases, left greater than right. No pleural effusions. 2. No hematoma, fluid collection, or contusion is seen in the body wall. 3. No acute intra-abdominal findings. Abdomen/Pelvis CT 06/02/19 20:53 IMPRESSION: 1. Areas of atelectasis/consolidation at the lung bases, left greater than right. No pleural effusions. 2. No hematoma, fluid collection, or contusion is seen in the body wall. 3. No acute intra-abdominal findings. KUB X-Ray 06/03/19 00:00 IMPRESSION: NASOGASTRIC TUBE WITH THE TIP IN THE STOMACH. NO RADIOGRAPHIC EVIDENCE FOR ACUTE ABDOMINAL DISEASE. Chest X-Ray 06/05/19 06:00 IMPRESSION: 1. Increasing volume loss in the left inferior hemithorax when compared to the prior study. Findings may reflect a combination of pleural fluid, atelectasis or pneumonic infiltrate. 2. Grossly stable life support lines and tubes. The tip of the feeding tube is not visualized on this examination but extends below the diaphragm. Assessment & Plan - Diagnosis (1) Upper GI bleed Is this a current diagnosis for this admission?: Yes - Plan Summary Plan Summary: This is a 59-year-old female status post endoscopic intervention for acute upper GI bleeding. The patient's hemoglobin is stable today. There is a mild drop, consistent with dilution. Patient's vital signs are currently stable. There is no evidence of bleeding from the NG tube. Continue with supportive care for now. Will follow.
[2019-06-07] MEDS: PANTOPRAZOLE SODIUM 40 MG VIAL IV SCH ×3 (01:08→17:27)
[2019-06-07] MEDS: LORAZEPAM INJ 2 MG/1 ML VIAL IV PRN (01:19)
[2019-06-07] MEDS: PIPERACILLIN SODIUM/TAZOBACTAM 3.375 GM in NORMAL SALINE 100 ML IV SCH ×4 (03:12→20:26)
[2019-06-07] MEDS: FENTANYL CITRATE INJ/PF 100 MCG/2 ML AMPUL IV PRN ×4 (03:12→20:27)
[2019-06-07] MEDS: MIDAZOLAM HCL 50 MG/100 ML RTUINJ IV PRN ×6 (03:34→23:46)
[2019-06-07 03:57] LABS: ARTERIAL BLOOD BASE EXCESS -2.5 mmol/L; ARTERIAL BLOOD H2CO3 0.88 mmol/L (1.05-1.35); ARTERIAL BLOOD HCO3 20.5 mmol/L (20-24); ARTERIAL BLOOD O2 SATURATION 94.5 % (94-98); ARTERIAL BLOOD PCO2 29.2 mmHg (35-45); ARTERIAL BLOOD PH 7.46 (7.35-7.45); ARTERIAL BLOOD PO2 66.6 mmHg (80-100); ARTERIAL BLOOD TOTAL CO2 21.4 mmol/L (21-25)
[2019-06-07 04:04] LABS: ARTERIAL BLOOD FIO2 25%
[2019-06-07] MEDS: POTASSI CL 40 MEQ/NS 1L 1,000 ML IV PRN ×2 (04:11→22:05)
[2019-06-07] MEDS: VANCOMYCIN HCL 750 MG in DEXTROSE 5%-WATER 250 ML IV SCH ×4 (05:13→21:55)
[2019-06-07] MEDS: SUCRALFATE 1 GM TABLET PO SCH ×3 (05:14→22:04)
[2019-06-07 05:49] LABS: ABSOLUTE EOSINOPHILS # (AUTO) 0.5 10^3/uL (0.0-0.6); ABSOLUTE LYMPHOCYTES (AUTO) 1.2 10^3/uL (0.5-4.7); ABSOLUTE MONOCYTES (AUTO) 0.6 10^3/uL (0.1-1.4); ABSOLUTE NEUT (AUTO) 5.6 10^3/uL (1.7-8.2); BASOPHILS % (AUTO) 0.5 % (0-2); HEMATOCRIT 33.2 % (36.0-47.0); HEMOGLOBIN 11.3 g/dL (12.0-15.5); LYMPHOCYTES % (AUTO) 14.8 % (13-45); MEAN CORPUSCULAR HEMOGLOBIN 31.8 pg (27.0-33.4); MEAN CORPUSCULAR VOLUME 94 fl (80-97); PLATELET COUNT 229 10^3/uL (150-450); RED BLOOD COUNT 3.55 10^6/uL (3.72-5.28); RED CELL DISTRIBUTION WIDTH 12.5 % (11.5-14.0); SEGMENTED NEUTROPHILS % (AUTO) 70.7 % (42-78); TOTAL CELLS COUNTED % (AUTO) 100 %; WHITE BLOOD COUNT 7.9 10^3/uL (4.0-10.5)
[2019-06-07 06:05] LABS: ANION GAP 6 (5-19); BLOOD UREA NITROGEN 5 mg/dL (7-20); CALCIUM 8.2 mg/dL (8.4-10.2); CARBON DIOXIDE 23 mmol/L (22-30); CHLORIDE 111 mmol/L (98-107); GLUCOSE 126 mg/dL (75-110); POTASSIUM 3.5 mmol/L (3.6-5.0)
--- NOTE | 2019-06-07 06:06 | PDOC PROGRESS REPORT ---
Subjective Subjective:: This is a 59-year-old female with a recent upper GI bleed, requiring endoscopic intervention. Patient is currently intubated and sedated, and a review of systems is unable to be obtained. Overnight events were provided by the nursing staff. Per nursing report, there has been no further bleeding from an upper GI source. Her tube feedings are running, her residuals are minimal and nonbloody. She is normotensive and not tachycardic.. Reason For Visit: OVERDOSE,ASP PNEUMONIA,ACUTE RESPIRATORY FAILURE Physical Exam Vital Signs: Temp Pulse Resp BP Pulse Ox 98.8 F 77 16 107/66 96 06/07/19 02:50 06/07/19 00:00 06/07/19 02:50 06/07/19 02:50 06/07/19 04:18 Intake & Output 06/05/19 06/06/19 06/07/19 06:59 06:59 06:59 Intake Total 3564 3688 2998 Output Total 2635 3700 4750 Balance 412 -85 -7863 Weight 54.3 kg 55.7 kg General appearance: PRESENT: no acute distress Head exam: PRESENT: atraumatic, normocephalic Eye exam: PRESENT: PERRLA. ABSENT: scleral icterus Mouth exam: PRESENT: neck supple, other - ET tube in-place Neck exam: ABSENT: thyromegaly, tracheal deviation Respiratory exam: PRESENT: other - intubated. coarse BS bilaterally Cardiovascular exam: PRESENT: RRR Pulses: PRESENT: normal radial pulses Vascular exam: PRESENT: normal capillary refill GI/Abdominal exam: PRESENT: soft. ABSENT: distended Rectal exam: PRESENT: deferred Extremities exam: ABSENT: clubbing Musculoskeletal exam: ABSENT: deformity Neurological exam: ABSENT: alert, awake Psychiatric exam: ABSENT: agitated, anxious Skin exam: ABSENT: cyanosis, erythema, jaundice Results Laboratory Results: 06/06/19 06/06/19 06/06/19 04:01 04:01 08:35 Retic Count (auto) 1.16 Carbonic Acid 0.99 L HCO3/H2CO3 Ratio 21:1 ABG pH 7.42 ABG pCO2 32.9 L ABG pO2 64.8 L ABG HCO3 20.8 ABG O2 Saturation 93.3 L ABG Base Excess -3.0 FiO2 25% Potassium Iron 22.5 L TIBC 214 L % Saturation 11 Ferritin 82.10 Vitamin B12 959.0 H Folate 8.41 06/06/19 06/07/19 14:40 03:48 Retic Count (auto) Carbonic Acid 0.88 L HCO3/H2CO3 Ratio 23:1 ABG pH 7.46 H ABG pCO2 29.2 L ABG pO2 66.6 L ABG HCO3 20.5 ABG O2 Saturation 94.5 ABG Base Excess -2.5 FiO2 25% Potassium 3.7 Iron TIBC % Saturation Ferritin Vitamin B12 Folate 06/03/19 13:15 Tracheal Aspirate Gram Stain - Final 06/03/19 13:15 Tracheal Aspirate Sputum Culture - Final NORMAL TERI Impressions: Head CT 06/02/19 18:57 IMPRESSION: 1. No acute hemorrhage or mass effect 2. redundant loop of the orogastric tube extends superiorly into the nasopharynx; consider repositioning. Chest CT 06/02/19 20:03 IMPRESSION: 1. Areas of atelectasis/consolidation at the lung bases, left greater than right. No pleural effusions. 2. No hematoma, fluid collection, or contusion is seen in the body wall. 3. No acute intra-abdominal findings. Abdomen/Pelvis CT 06/02/19 20:53 IMPRESSION: 1. Areas of atelectasis/consolidation at the lung bases, left greater than right. No pleural effusions. 2. No hematoma, fluid collection, or contusion is seen in the body wall. 3. No acute intra-abdominal findings. KUB X-Ray 06/03/19 00:00 IMPRESSION: NASOGASTRIC TUBE WITH THE TIP IN THE STOMACH. NO RADIOGRAPHIC EVIDENCE FOR ACUTE ABDOMINAL DISEASE. Assessment & Plan - Diagnosis (1) Upper GI bleed Is this a current diagnosis for this admission?: Yes - Plan Summary Plan Summary: This is a 59-year-old female status post endoscopic intervention for acute upper GI bleeding. The patient's hemoglobin is pending. She has no clinical evidence of ongoing bleeding. Patient's vital signs are currently stable. There is no bleeding from the NG tube. Continue with supportive care for now. If clinical suspicion exists for ongoing bleeding, please renotify Surgicalists. Followup with [facility] in 4-6 weeks as outpatient. Surgery will sign-off at this time.
[2019-06-07 06:07] LABS: VANCOMYCIN,TROUGH 13.9 ug/mL (5.0-20.0)
[2019-06-07] MEDS: PROPOFOL 1,000 MG/100 ML INFUS..BTL IV PRN ×2 (07:30→18:57)
[2019-06-07] MEDS: IPRATROPIUM/ALBUTEROL 0.5-2.5 MG/3 ML AMPUL NEB SCH ×3 (08:31→15:29)
--- NOTE | 2019-06-07 08:59 | RADIOLOGY REPORT (SQ) ---
EXAM DESCRIPTION: CHEST SINGLE VIEW COMPLETED DATE/TIME: 06/07/2019 6:00 am REASON FOR STUDY: resp failure/pna COMPARISON: 06/05/2019 NUMBER OF VIEWS: One view. TECHNIQUE: Single frontal radiographic image of the chest acquired. LIMITATIONS: None. FINDINGS: LUNGS AND PLEURA: Left lower lobe airspace disease with slight improvement. Better defini tion of the left heart border. No pneumothorax. MEDIASTINUM AND HEART: Stable heart size and mediastinal structures. SUPPORT DEVICES: Appropriate location without change. BONY STRUCTURES: No acute findings. HARDWARE: None. OTHER: No other significant finding. IMPRESSION: Slight improvement. No pneumothorax. Reading location - IP/workstation name: [email or web address]
[2019-06-07] MEDS: AMINO AC/PROTEIN HYDR/WHEY PRO 11 GM/45 ML PKT GT SCH ×3 (10:31→17:30)
[2019-06-07] MEDS: CITALOPRAM HYDROBROMIDE 20 MG TABLET NG SCH (10:32)
[2019-06-07] MEDS: BUSPIRONE HCL 10 MG TABLET NG SCH ×2 (10:32→22:04)
[2019-06-07] MEDS: VALPROATE SODIUM SYRUP 250 MG/5 ML UDCUP NG SCH ×2 (10:34→22:05)
--- NOTE | 2019-06-07 14:22 | EKG REPORT ---
SEVERITY:- BORDERLINE ECG - SINUS RHYTHM LOW VOLTAGE IN FRONTAL LEADS BORDERLINE T ABNORMALITIES, ANT-LAT LEADS : Confirmed by: Giovana Wright 07-Jun-2019 14:21:11
--- NOTE | 2019-06-07 20:01 | PDOC PROGRESS REPORT ---
Subjective Progress Note for:: 06/07/19 Subjective:: Intubated and sedated. She is exhibiting spontaneous movement and currently has her legs crossed. Resting on SIMV. Dark liquid stool noted earlier today prompting a fecal collection system. Reason For Visit: OVERDOSE,ASP PNEUMONIA,ACUTE RESPIRATORY FAILURE Physical Exam Vital Signs: Temp Pulse Resp BP Pulse Ox 99.5 F 86 17 105/61 95 06/07/19 18:36 06/07/19 15:29 06/07/19 18:36 06/07/19 18:36 06/07/19 18:36 Intake & Output 06/06/19 06/07/19 06/08/19 06:59 06:59 06:59 Intake Total 3688 3438 588 Output Total 3700 4850 1400 Balance -12 -1412 -812 Weight 55.7 kg 54.5 kg General appearance: PRESENT: no acute distress, other - Intubated and sedated Head exam: PRESENT: atraumatic, normocephalic Eye exam: PRESENT: conjunctiva pale. ABSENT: scleral icterus Ear exam: PRESENT: normal external ear exam. ABSENT: bleeding, drainage Mouth exam: PRESENT: other - Endotracheal and orogastric tubes in place Respiratory exam: PRESENT: clear to auscultation mercedes - Anteriorly, symmetrical. ABSENT: accessory muscle use, rales, rhonchi, tachypnea, wheezes Cardiovascular exam: PRESENT: RRR, +S1, +S2, other - Slightly difficult to auscultate due to ventilator. GI/Abdominal exam: PRESENT: diminished bowel sounds, soft. ABSENT: distended, tenderness Rectal exam: PRESENT: black stool, other - Rectal tube in place. Gentrourinary exam: PRESENT: indwelling catheter Extremities exam: ABSENT: calf tenderness, pedal edema Musculoskeletal exam: PRESENT: normal inspection. ABSENT: deformity Neurological exam: PRESENT: other - Intubated and sedated Psychiatric exam: ABSENT: agitated Focused psych exam: PRESENT: restlessness - Slightly restless with weaning of sedation Skin exam: PRESENT: dry, normal color, warm. ABSENT: rash Results Laboratory Results: 06/07/19 05:37 06/07/19 05:37 06/07/19 06/07/19 06/07/19 03:48 05:37 05:37 WBC 7.9 RBC 3.55 L Hgb 11.3 L Hct 33.2 L MCV 94 MCH 31.8 MCHC 34.0 RDW 12.5 Plt Count 229 Seg Neutrophils % 70.7 Carbonic Acid 0.88 L HCO3/H2CO3 Ratio 23:1 ABG pH 7.46 H ABG pCO2 29.2 L ABG pO2 66.6 L ABG HCO3 20.5 ABG O2 Saturation 94.5 ABG Base Excess -2.5 FiO2 25% Sodium 140.1 Potassium 3.5 L Chloride 111 H Carbon Dioxide 23 Anion Gap 6 BUN 5 L Creatinine 0.36 L Est GFR ( Amer) > 60 Glucose 126 H Calcium 8.2 L Magnesium 1.5 L Impressions: Head CT 06/02/19 18:57 IMPRESSION: 1. No acute hemorrhage or mass effect 2. redundant loop of the orogastric tube extends superiorly into the nasopharynx; consider repositioning. Chest CT 06/02/19 20:03 IMPRESSION: 1. Areas of atelectasis/consolidation at the lung bases, left greater than right. No pleural effusions. 2. No hematoma, fluid collection, or contusion is seen in the body wall. 3. No acute intra-abdominal findings. Abdomen/Pelvis CT 06/02/19 20:53 IMPRESSION: 1. Areas of atelectasis/consolidation at the lung bases, left greater than right. No pleural effusions. 2. No hematoma, fluid collection, or contusion is seen in the body wall. 3. No acute intra-abdominal findings. KUB X-Ray 06/03/19 00:00 IMPRESSION: NASOGASTRIC TUBE WITH THE TIP IN THE STOMACH. NO RADIOGRAPHIC EVID ENCE FOR ACUTE ABDOMINAL DISEASE. Chest X-Ray 06/07/19 06:00 IMPRESSION: Slight improvement. No pneumothorax. Assessment and Plan - Diagnosis (1) Acute respiratory failure with hypoxia Is this a current diagnosis for this admission?: Yes Plan: Secondary to benzodiazepine overdose and alcohol intoxication. Intubated. On minimal vent settings. 06/04: Doing well on minimal vent settings. Start weaning trials tomorrow. 06/05/2019-the patient remains intubated. When we lower the sedation she gets very restless. We will start weaning trials. She is at risk for ventilator associated pneumonia versus the initial aspiration pneumonia suspected. 06/05/2019-the patient remains intubated and sedated. She was awake this afternoon. We will continue trials of sedation vacation and institute weaning trials. 06/06/2019-we will continue to trial sedation vacation and weaning. Pulmonology will be seeing the patient as well. The patient is likely getting through the window for detox. I will also add medications to help with agitation and anxiety such as Depakote. This may help ease the transition of decrease sedation to extubation. 06/07/2019-please also see pulmonology note. Continued weaning trials. Currently the patient is resting on SIMV. Continue nebulizer treatments and pulmonary toilet. We will continue weaning trials with a goal of extubation in the next day or 2. (2) Acute encephalopathy Is this a current diagnosis for this admission?: Yes Plan: Currently intubated. 06/05/2019-the patient does have windows of responsiveness. At the time of this encounter she is not responding. Will continue to assess as sedation decreases. Consider mood stabilizer such as Depakote. She may also benefit from SSRI therapy. 06/05/2019-she was actually awake this afternoon and she appeared to understand what her son was saying. She maintained eye contact temporarily. Encephalopa thy appears to be improving but it is inconsistent due to sedation. 06/06/2019-not awake at the time of this encounter. Because of the high alcohol level the encephalopathy is most likely toxic from alcohol and benzodiazepines. The alcohol should be metabolized. She requires Versed for sedation while intubated. We are trying to wean this as well. Full evaluation for encephalopathy will be difficult until she is extubated. 06/07/2019-toxic encephalopathy appears to be improving. The patient does have windows where she is communicative with family. These are brief. Continue to wean sedation. BuSpar, Depakote and citalopram have been added. (3) Upper GI bleed Is this a current diagnosis for this admission?: Yes Plan: Will start Protonix and Sandostatin drip. Type and screen. Will consult surgery. 06/04: She just had an EGD which showed actively bleeding gastric ulcer. Bleeding was stopped with Hemospray and ethanol sclerosis by surgicalist. Switch Protonix drip to IV Protonix after current drip is consumed. DC sandostatin. 06/05/2019-reviewed with Dr. Trinh. She had a large ulcer on the lesser curvature. It was injected. The tissue appeared friable. She also had gastritis and esophagitis. We will change to Protonix 40 mg every 8 hours IV and continue the Carafate. We will continue to monitor the hemoglobin. 06/05/2019-hemoglobin is stable and so it is unlikely that GI bleeding is contributing to low blood pressure. 06/06/2019-hemoglobin is improving. Bleeding has likely stopped altogether. A stool for Helicobacter pylori antigen has been ordered. 06/07/2019-H. pylori antigen is pending. Hemoglobin fact is improving. We will continue proton pump inhibitor and Carafate. (4) Alcohol intoxication Qualifiers: Complication of substance-induced condition: uncomplicated Qualified Code(s): F10.920 - Alcohol use, unspecified with intoxication, uncomplicated Is this a current diagnosis for this admission?: Yes Plan: Supportive care 06/05/2019-the patient is on Versed and has as needed lorazepam available. The Versed should cover withdrawal symptoms. We will continue to monitor closely. 06/06/2019-serum alcohol 337 on admission. Medication adjustments will be made to try and ease the transition off of Versed for extubation. 06/07/2019-encourage cessation post recovery. (5) Aspiration pneumonia Is this a current diagnosis for this admission?: Yes Plan: On Zosyn. 06/05/2019-patient is on Zosyn. Sputum Gram stain did show gram-positive cocci. I have added vancomycin. I will have pharmacy dose the medication. Chest x-ray today showed increased density at the left base. 06/05/2019-the Gram stain for the sputum specimen is available. There are gram- positive cocci in pairs with some yeast and some gram-positive rods. There were 2+ polys. There were epithelial cells. I am going to add vancomycin to the Zosyn. I have ordered repeat blood cultures and a lactic acid. If infection is contributing to the hypotension then expanding antibiotics should help. 06/06/2019-continue vancomycin and Zosyn at this time. 06/07/2019-continue antibiotics as ordered. White blood cell count is normal. (6) Suicide attempt Is this a current diagnosis for this admission?: Yes Plan: Psych consulted. 06/05/2019-the patient drank alcohol and took benzodiazepines. When she is extubated psychiatry will assess the patient. Consider antidepressant therapy. The QT interval is still normal. We will monitor if we add antidepressant therapy. 06/06/2019-pending psychiatric evaluation once extubated. 06/07/2019-as above (7) Hypotension Qualifiers: Hypotension type: hypotension due to hypovolemia Qualified Code(s): I95.89 - Other hypotension; E86.1 - Hypovolemia Is this a current diagnosis for this admission?: Yes Plan: 06/05/2019-the patient did have a negative fluid balance 2 days ago. Her fluid balance of 5 today is negative. I will give 1 L of fluid at 500 mL/h over 2 hours. I will check your blood pressure response. I did order repeat blood cultures and a lactic acid level. She has been on Zosyn but sepsis is a possibility. Her low blood pressure control to be due to the propofol and Versed. We will try to keep her map greater than 65. 06/06/2019-blood pressure still low. She did receive some fluid. We would like to keep her map greater than 65. 06/07/2019-still with marginal pressures. When we can taper the patient from her Versed and propofol blood pressure should improve. (8) On parenteral nutrition Is this a current diagnosis for this admission?: Yes Plan: 06/05/2019-surgery has approved so we will institute tube feedings. Nutrition has suggested the tube feed formula as well as suggested rates. Flushes every 4 hours as well. 06/06/2019-appears to be tolerating tube feeds. 06/07/2019-continue tube feeds. Increase slowly to goal rate as determined by the dietitian. (9) Diarrhea Qualifiers: Diarrhea type: unspecified type Qualified Code(s): R19.7 - Diarrhea, unspecified Is this a current diagnosis for this admission?: Yes Plan: 06/07/2019-still with dark stool likely secondary to processing of old blood. The stool was in fact sent for C. difficile testing and this was negative. We may need to change tube feeds if loose stools persist. - Time Time Spent with patient: 15-24 minutes Medications reviewed and adjusted accordingly: Yes
[2019-06-08 00:02] LABS: POTASSIUM 3.5 mmol/L (3.6-5.0)
[2019-06-08] MEDS: IPRATROPIUM/ALBUTEROL 0.5-2.5 MG/3 ML AMPUL NEB SCH ×3 (00:05→15:21)
[2019-06-08] MEDS: MAGNESIUM SULFATE 1 GM/D5W 100 ML IV SCH ×2 (00:29→01:25)
[2019-06-08] MEDS: PROPOFOL 1,000 MG/100 ML INFUS..BTL IV PRN ×2 (01:25→07:46)
[2019-06-08] MEDS: PANTOPRAZOLE SODIUM 40 MG VIAL IV SCH ×3 (01:25→17:29)
[2019-06-08] MEDS: PIPERACILLIN SODIUM/TAZOBACTAM 3.375 GM in NORMAL SALINE 100 ML IV SCH ×4 (02:14→21:45)
[2019-06-08 03:49] LABS: ANION GAP 6 (5-19); BLOOD UREA NITROGEN 7 mg/dL (7-20); CALCIUM 8.2 mg/dL (8.4-10.2); CARBON DIOXIDE 24 mmol/L (22-30); CHLORIDE 110 mmol/L (98-107); GLUCOSE 166 mg/dL (75-110); POTASSIUM 3.4 mmol/L (3.6-5.0)
[2019-06-08] MEDS: MIDAZOLAM HCL 50 MG/100 ML RTUINJ IV PRN ×2 (04:08→12:39)
[2019-06-08] MEDS ORDERED: POTASSI CL 20 MEQ/50 ML RIDER 20 MEQ/50 ML RTUPB IV ONE (05:13)
[2019-06-08] MEDS: VANCOMYCIN HCL 750 MG in DEXTROSE 5%-WATER 250 ML IV SCH ×2 (05:16→17:31)
[2019-06-08] MEDS: SUCRALFATE 1 GM TABLET PO SCH ×3 (05:16→21:46)
[2019-06-08] MEDS: POTASSIUM CHLORIDE 20 MEQ/50 ML RTU IV SCH ×2 (06:12→07:44)
[2019-06-08] MEDS: AMINO AC/PROTEIN HYDR/WHEY PRO 11 GM/45 ML PKT GT SCH ×3 (11:10→17:29)
[2019-06-08] MEDS: BUSPIRONE HCL 10 MG TABLET NG SCH ×2 (11:11→21:46)
[2019-06-08] MEDS: CITALOPRAM HYDROBROMIDE 20 MG TABLET NG SCH (11:11)
[2019-06-08] MEDS: VALPROATE SODIUM SYRUP 250 MG/5 ML UDCUP NG SCH ×2 (11:11→21:46)
--- NOTE | 2019-06-08 15:50 | PDOC PROGRESS REPORT ---
Subjective Progress Note for:: 06/08/19 Subjective:: Patient is stable on weaning. Will extubate. Still restless. Reason For Visit: OVERDOSE,ASP PNEUMONIA,ACUTE RESPIRATORY FAILURE Physical Exam Vital Signs: Temp Pulse Resp BP Pulse Ox 99.5 F 72 21 H 135/92 H 94 06/08/19 15:38 06/08/19 08:19 06/08/19 15:38 06/08/19 15:38 06/08/19 15:38 Intake & Output 06/07/19 06/08/19 06/09/19 06:59 06:59 06:59 Intake Total 3438 5601 166 Output Total 4850 2975 1125 Balance -1412 2626 -959 Weight 54.5 kg 56.8 kg General appearance: PRESENT: mild distress, well-developed. ABSENT: cooperative Head exam: PRESENT: atraumatic, normocephalic Ear exam: PRESENT: normal external ear exam. ABSENT: bleeding, drainage Mouth exam: PRESENT: other - Endotracheal and orogastric tubes in place Neck exam: PRESENT: full ROM Respiratory exam: PRESENT: clear to auscultation mercedes - Somewhat difficult to auscultate due to her restlessness, symmetrical, unlabored. ABSENT: rales, rhonchi, tachypnea, wheezes Cardiovascular exam: PRESENT: RRR, +S1, +S2 GI/Abdominal exam: PRESENT: normal bowel sounds, soft. ABSENT: distended, tenderness Rectal exam: PRESENT: other - Fecal collection tube in place Gentrourinary exam: PRESENT: indwelling catheter Extremities exam: ABSENT: joint swelling, pedal edema Musculoskeletal exam: PRESENT: normal inspection Neurological exam: PRESENT: awake. ABSENT: alert Psychiatric exam: PRESENT: agitated Focused psych exam: PRESENT: restlessness Results Laboratory Results: 06/07/19 05:37 06/08/19 03:16 06/07/19 06/08/19 23:40 03:16 Sodium 139.9 Potassium 3.5 L 3.4 L Chloride 110 H Carbon Dioxide 24 Anion Gap 6 BUN 7 Creatinine 0.37 L Est GFR ( Amer) > 60 Glucose 166 H Calcium 8.2 L Magnesium 1.5 L 2.3 06/02/19 23:24 Blood Blood Culture - Final NO GROWTH IN 5 DAYS 06/02/19 22:25 Blood Blood Culture - Final NO GROWTH IN 5 DAYS Impressions: Head CT 06/02/19 18:57 IMPRESSION: 1. No acute hemorrhage or mass effect 2. redundant loop of the orogastric tube extends superiorly into the nasopharynx; consider repositioning. Chest CT 06/02/19 20:03 IMPRESSION: 1. Areas of atelectasis/consolidation at the lung bases, left greater than right. No pleural effusions. 2. No hematoma, fluid collection, or contusion is seen in the body wall. 3. No acute intra-abdominal findings. Abdomen/Pelvis CT 06/02/19 20:53 IMPRESSION: 1. Areas of atelectasis/consolidation at the lung bases, left greater than right. No pleural effusions. 2. No hematoma, fluid collection, or contusion is seen in the body wall. 3. No acute intra-abdominal findings. KUB X-Ray 06/03/19 00:00 IMPRESSION: NASOGASTRIC TUBE WITH THE TIP IN THE STOMACH. NO RADIOGRAPHIC EVIDENCE FOR ACUTE ABDOMINAL DISEASE. Chest X-Ray 06/07/19 06:00 IMPRESSION: Slight improvement. No pneumothorax. Assessment and Plan - Diagnosis (1) Acute respiratory failure with hypoxia Is this a current diagnosis for this admission?: Yes Plan: Secondary to benzodiazepine overdose and alcohol intoxication. Intubated. On minimal vent settings. 06/04: Doing well on minimal vent settings. Start weaning trials tomorrow. 06/05/2019-the patient remains intubated. When we lower the sedation she gets very restless. We will start weaning trials. She is at risk for ventilator associated pneumonia versus the initial aspiration pneumonia suspected. 06/05/2019-the patient remains intubated and sedated. She was awake this afternoon. We will continue trials of sedation vacation and institute weaning trials. 06/06/2019-we will continue to trial sedation vacation and weaning. Pulmonology will be seeing the patient as well. The patient is likely getting through the window for detox. I will also add medications to help with agitation and anxiety such as Depakote. This may help ease the transition of decrease sedation to extubation. 06/07/2019-please also see pulmonology note. Continued weaning trials. Currently the patient is resting on SIMV. Continue nebulizer treatments and pulmonary toilet. We will continue weaning trials with a goal of extubation in the next day or 2. 06/08/2019-patient did fairly well weaning from this morning. I think in the order to extubate. We will go to face tent first and taper oxygen as tolerated. (2) Acute encephalopathy Is this a current diagnosis for this admission?: Yes Plan: Currently intubated. 06/05/2019-the patient does have windows of responsiveness. At the time of this encounter she is not responding. Will continue to assess as sedation decreases. Consider mood stabilizer such as Depakote. She may also benefit from SSRI therapy. 06/05/2019-she was actually awake this afternoon and she appeared to understand what her son was saying. She maintained eye contact temporarily. Encephalopathy appears to be improving but it is inconsistent due to sedation. 06/06/2019-not awake at the time of this encounter. Because of the high alcohol level the encephalopathy is most likely toxic from alcohol and benzodiazepines. The alcohol should be metabolized. She requires Versed for sedation while intubated. We are trying to wean this as well. Full evaluation for enceph alopathy will be difficult until she is extubated. 06/07/2019-toxic encephalopathy appears to be improving. The patient does have windows where she is communicative with family. These are brief. Continue to wean sedation. BuSpar, Depakote and citalopram have been added. 06/08/2019-patient appears to be somewhat more calm on the above regimen. (3) Upper GI bleed Is this a current diagnosis for this admission?: Yes Plan: Will start Protonix and Sandostatin drip. Type and screen. Will consult surgery. 06/04: She just had an EGD which showed actively bleeding gastric ulcer. Bleeding was stopped with Hemospray and ethanol sclerosis by surgicalist. Switch Protonix drip to IV Protonix after current drip is consumed. DC sandostatin. 06/05/2019-reviewed with Dr. Trinh. She had a large ulcer on the lesser curvature. It was injected. The tissue appeared friable. She also had gastritis and esophagitis. We will change to Protonix 40 mg every 8 hours IV and continue the Carafate. We will continue to monitor the hemoglobin. 06/05/2019-hemoglobin is stable and so it is unlikely that GI bleeding is contributing to low blood pressure. 06/06/2019-hemoglobin is improving. Bleeding has likely stopped altogether. A stool for Helicobacter pylori antigen has been ordered. 06/07/2019-H. pylori antigen is pending. Hemoglobin fact is improving. We will continue proton pump inhibitor and Carafate. 06/08/2019-hemoglobin has been stable. Helicobacter pylori antigen is pending. (4) Alcohol intoxication Qualifiers: Complication of substance-induced condition: uncomplicated Qualified Code(s): F10.920 - Alcohol use, unspecified with intoxication, uncomplicated Is this a current diagnosis for this admission?: Yes Plan: Supportive care 06/05/2019-the patient is on Versed and has as needed lorazepam available. The Versed should cover withdrawal symptoms. We will continue to monitor closely. 06/06/2019-serum alcohol 337 on admission. Medication adjustments will be made to try and ease the transition off of Versed for extubation. 06/07/2019-encourage cessation post recovery. 06/08/2019-there is a significant possibility that prolonged alcohol use has caused an encephalopathy. An anoxic encephalopathy is very likely as well. We will assess patient after she is extubated as a conversation with her would be more helpful. (5) Aspiration pneumonia Is this a current diagnosis for this admission?: Yes Plan: On Zosyn. 06/05/2019-patient is on Zosyn. Sputum Gram stain did show gram-positive cocci. I have added vancomycin. I will have pharmacy dose the medication. Chest x-ray today showed increased density at the left base. 06/05/2019-the Gram stain for the sputum specimen is available. There are gram- positive cocci in pairs with some yeast and some gram-positive rods. There were 2+ polys. There were epithelial cells. I am going to add vancomycin to the Zosyn. I have ordered repeat blood cultures and a lactic acid. If infection is contributing to the hypotension then expanding antibiotics should help. 06/06/2019-continue vancomycin and Zosyn at this time. 06/07/2019-continue antibiotics as ordered. White blood cell count is normal. 06/08/2019-complete antibiotic therapy as ordered. (6) Suicide attempt Is this a current diagnosis for this admission?: Yes Plan: Psych consulted. 06/05/2019-the patient drank alcohol and took benzodiazepines. When she is ex tubated psychiatry will assess the patient. Consider antidepressant therapy. The QT interval is still normal. We will monitor if we add antidepressant therapy. 06/06/2019-pending psychiatric evaluation once extubated. 06/07/2019-as above 06/08/2019-IVC form completed. Psychiatry will add to the patient until she is communicative. (7) Hypotension Qualifiers: Hypotension type: hypotension due to hypovolemia Qualified Code(s): I95.89 - Other hypotension; E86.1 - Hypovolemia Is this a current diagnosis for this admission?: Yes Plan: 06/05/2019-the patient did have a negative fluid balance 2 days ago. Her fluid balance of 5 today is negative. I will give 1 L of fluid at 500 mL/h over 2 hours. I will check your blood pressure response. I did order repeat blood cultures and a lactic acid level. She has been on Zosyn but sepsis is a possibility. Her low blood pressure control to be due to the propofol and Versed. We will try to keep her map greater than 65. 06/06/2019-blood pressure still low. She did receive some fluid. We would like to keep her map greater than 65. 06/07/2019-still with marginal pressures. When we can taper the patient from her Versed and propofol blood pressure should improve. 06/08/2019-blood pressures have been stable off of propofol and Versed. (8) On parenteral nutrition Is this a current diagnosis for this admission?: Yes Plan: 06/05/2019-surgery has approved so we will institute tube feedings. Nutrition has suggested the tube feed formula as well as suggested rates. Flushes every 4 hours as well. 06/06/2019-appears to be tolerating tube feeds. 06/07/2019-continue tube feeds. Increase slowly to goal rate as determined by the dietitian. 06/08/2019-we will start diet once the orogastric tube is out pending swallow evaluation. (9) Diarrhea Qualifiers: Diarrhea type: unspecified type Qualified Code(s): R19.7 - Diarrhea, unspecified Is this a current diagnosis for this admission?: Yes Plan: 06/07/2019-still with dark stool likely secondary to processing of old blood. The stool was in fact sent for C. difficile testing and this was negative. We may need to change tube feeds if loose stools persist. 06/08/2019-tube feeds likely contributing to loose stool. Consider removing fecal collection system once she is on a regular diet. - Time Time Spent with patient: 15-24 minutes Medications reviewed and adjusted accordingly: Yes
[2019-06-08] MEDS: FENTANYL CITRATE INJ/PF 100 MCG/2 ML AMPUL IV PRN ×2 (16:16→21:45)
[2019-06-08] MEDS: POTASSI CL 40 MEQ/NS 1L 1,000 ML IV PRN (16:20)
[2019-06-08] MEDS: HALOPERIDOL LACTATE INJ 5 MG/1 ML VIAL IV ONE ×2 (17:29→18:02)
[2019-06-08] MEDS: RISPERIDONE 0.25 MG TABLET PO SCH (17:31)
[2019-06-08] MEDS ORDERED: HALOPERIDOL LACTATE INJ 5 MG/1 ML VIAL ONE (17:54)
[2019-06-08] MEDS: LORAZEPAM INJ 2 MG/1 ML VIAL IV PRN (19:17)
[2019-06-08 19:59] LABS: ANION GAP 7 (5-19); BLOOD UREA NITROGEN 4 mg/dL (7-20); CALCIUM 9.1 mg/dL (8.4-10.2); CARBON DIOXIDE 25 mmol/L (22-30); CHLORIDE 110 mmol/L (98-107); GLUCOSE 169 mg/dL (75-110); POTASSIUM 3.3 mmol/L (3.6-5.0)
[2019-06-08] MEDS: POTASSI CL 20 MEQ/50 ML RIDER 20 MEQ/50 ML RTUPB IV SCH (21:44)
[2019-06-08] MEDS: POTASSIUM CHLORIDE 20 MEQ PACKET NG SCH (21:46)
[2019-06-08] MEDS ORDERED: POTASSIUM CHLORIDE 10 MEQ CAPSULE.ER PO SCH (22:00)
[2019-06-09] MEDS: POTASSI CL 20 MEQ/50 ML RIDER 20 MEQ/50 ML RTUPB IV SCH (00:09)
[2019-06-09] MEDS: LORAZEPAM INJ 2 MG/1 ML VIAL IV PRN ×4 (00:09→20:19)
[2019-06-09] MEDS: IPRATROPIUM/ALBUTEROL 0.5-2.5 MG/3 ML AMPUL NEB SCH ×4 (00:56→23:51)
[2019-06-09] MEDS ORDERED: CHLORPROMAZINE HCL INJ 25 MG/1 ML AMPULE ONE (01:47)
[2019-06-09] MEDS: PANTOPRAZOLE SODIUM 40 MG VIAL IV SCH ×3 (01:49→17:23)
[2019-06-09] MEDS: CHLORPROMAZINE HCL INJ 25 MG/1 ML AMPULE IV PRN ×2 (01:50→06:24)
[2019-06-09] MEDS: PIPERACILLIN SODIUM/TAZOBACTAM 3.375 GM in NORMAL SALINE 100 ML IV SCH ×4 (02:09→20:18)
[2019-06-09 04:10] LABS: ANION GAP 11 (5-19); BLOOD UREA NITROGEN 4 mg/dL (7-20); CALCIUM 9.4 mg/dL (8.4-10.2); CARBON DIOXIDE 24 mmol/L (22-30); CHLORIDE 107 mmol/L (98-107); GLUCOSE 143 mg/dL (75-110); POTASSIUM 3.3 mmol/L (3.6-5.0)
[2019-06-09] MEDS: SUCRALFATE 1 GM TABLET PO SCH ×2 (05:03→13:47)
[2019-06-09] MEDS: VANCOMYCIN HCL 750 MG in DEXTROSE 5%-WATER 250 ML IV SCH ×2 (05:33→17:23)
[2019-06-09] MEDS: MAGNESIUM SULFATE 1 GM/D5W 100 ML IV SCH ×2 (05:33→06:41)
[2019-06-09] MEDS: POTASSIUM CHLORIDE 20 MEQ/50 ML RTU IV SCH ×2 (08:02→10:06)
[2019-06-09] MEDS: FENTANYL CITRATE INJ/PF 100 MCG/2 ML AMPUL IV PRN ×3 (09:25→21:14)
[2019-06-09] MEDS: BUSPIRONE HCL 10 MG TABLET NG SCH ×2 (10:06→21:14)
[2019-06-09] MEDS: POTASSIUM CHLORIDE 20 MEQ PACKET NG SCH ×2 (10:07→21:14)
[2019-06-09] MEDS: VALPROATE SODIUM SYRUP 250 MG/5 ML UDCUP NG SCH ×2 (10:07→21:14)
[2019-06-09] MEDS: RISPERIDONE 0.25 MG TABLET PO SCH (10:07)
[2019-06-09] MEDS: CITALOPRAM HYDROBROMIDE 20 MG TABLET NG SCH (10:07)
[2019-06-09] MEDS: AMINO AC/PROTEIN HYDR/WHEY PRO 11 GM/45 ML PKT GT SCH ×3 (10:07→17:26)
[2019-06-09] MEDS ORDERED: HALOPERIDOL LACTATE INJ 5 MG/1 ML VIAL IV ONE (14:44)
[2019-06-09] MEDS ORDERED: LACTULOSE SYRUP 20 GM/30 ML UDCUP NG PRN (14:54)
[2019-06-09] MEDS ORDERED: PHARMACY COMMUNICATION ORDER MC NR (15:00)
--- NOTE | 2019-06-09 15:05 | PDOC PROGRESS REPORT ---
Subjective Progress Note for:: 06/09/19 Subjective:: Patient extubated yesterday. From a respiratory standpoint she is stable however she is extremely restless and at times agitated. Unfortunately she is not able to safely swallow medications or food. Reason For Visit: OVERDOSE,ASP PNEUMONIA,ACUTE RESPIRATORY FAILURE Physical Exam Vital Signs: Temp Pulse Resp BP Pulse Ox 99.3 F 100 23 H 107/68 96 06/09/19 14:00 06/09/19 14:00 06/09/19 14:00 06/09/19 14:00 06/09/19 14:00 Intake & Output 06/08/19 06/09/19 06/10/19 06:59 06:59 06:59 Intake Total 5812 3169 50 Output Total 3455 3990 765 Balance 4076 -821 -073 Weight 56.8 kg 52.7 kg General appearance: PRESENT: mild distress, well-developed. ABSENT: cooperative Head exam: PRESENT: atraumatic, normocephalic Eye exam: PRESENT: other - Unable to assess Ear exam: PRESENT: normal external ear exam. ABSENT: bleeding, drainage Mouth exam: PRESENT: other - Unable to assess as patient is not cooperative. Respiratory exam: PRESENT: clear to auscultation mercedes - Anteriorly. Difficult to examine due to constant motion., symmetrical, tachypnea. ABSENT: rales, rhonchi, wheezes Cardiovascular exam: PRESENT: RRR, +S1, +S2 GI/Abdominal exam: PRESENT: diminished bowel sounds, soft. ABSENT: distended, tenderness Rectal exam: PRESENT: other - Fecal collection system in place Extremities exam: ABSENT: joint swelling, pedal edema Musculoskeletal exam: PRESENT: normal inspection. ABSENT: ambulatory Neurological exam: PRESENT: awake. ABSENT: alert Psychiatric exam: PRESENT: agitated Focused psych exam: PRESENT: restlessness Results Laboratory Results: 06/07/19 05:37 06/09/19 03:25 06/08/19 06/09/19 19:35 03:25 Sodium 141.9 141.6 Potassium 3.3 L 3.3 L Chloride 110 H 107 Carbon Dioxide 25 24 Anion Gap 7 11 BUN 4 L 4 L Creatinine 0.33 L 0.32 L Est GFR ( Amer) > 60 > 60 Glucose 169 H 143 H Calcium 9.1 9.4 Magnesium 1.7 1.5 L Impressions: Head CT 06/02/19 18:57 IMPRESSION: 1. No acute hemorrhage or mass effect 2. redundant loop of the orogastric tube extends superiorly into the nasopharynx; consider repositioning. Chest CT 06/02/19 20:03 IMPRESSION: 1. Areas of atelectasis/consolidation at the lung bases, left greater than right. No pleural effusions. 2. No hematoma, fluid collection, or contusion is seen in the body wall. 3. No acute intra-abdominal findings. Abdomen/Pelvis CT 06/02/19 20:53 IMPRESSION: 1. Areas of atelectasis/consolidation at the lung bases, left greater than right. No pleural effusions. 2. No hematoma, fluid collection, or contusion is seen in the body wall. 3. No acute intra-abdominal findings. KUB X-Ray 06/03/19 00:00 IMPRESSION: NASOGASTRIC TUBE WITH THE TIP IN THE STOMACH. NO RADIOGRAPHIC EVIDENCE FOR ACUTE ABDOMINAL DISEASE. Chest X-Ray 06/07/19 06:00 IMPRESSION: Slight improvement. No pneumothorax. Assessment and Plan - Diagnosis (1) Acute respiratory failure with hypoxia Is this a current diagnosis for this admission?: Yes Plan: Secondary to benzodiazepine overdose and alcohol intoxication. Intubated. On minimal vent settings. 06/04: Doing well on minimal vent settings. Start weaning trials tomorrow. 06/05/2019-the patient remains intubated. When we lower the sedation she gets very restless. We will start weaning trials. She is at risk for ventilator associated pneumonia versus the initial aspiration pneumonia suspected. 06/05/2019-the patient remains intubated and sedated. She was awake this afternoon. We will continue trials of sedation vacation and institute weaning trials. 06/06/2019-we will continue to trial sedation vacation and weaning. Pulmonology will be seeing the patient as well. The patient is likely getting through the window for detox. I will also add medications to help with agitation and anxiety such as Depakote. This may help ease the transition of decrease sedation to extubation. 06/07/2019-please also see pulmonology note. Continued weaning trials. Currently the patient is resting on SIMV. Continue nebulizer treatments and pulmonary toilet. We will continue weaning trials with a goal of extubation in the next day or 2. 06/08/2019-patient did fairly well weaning from this morning. I think in the order to extubate. We will go to face tent first and taper oxygen as tolerated. 06/09/2019-on nasal cannula. Saturations are acceptable. (2) Acute encephalopathy Is this a current diagnosis for this admission?: Yes Plan: Currently intubated. 06/05/2019-the patient does have windows of responsiveness. At the time of this encounter she is not responding. Will continue to assess as sedation decreases. Consider mood stabilizer such as Depakote. She may also benefit from SSRI therapy. 06/05/2019-she was actually awake this afternoon and she appeared to understand what her son was saying. She maintained eye contact temporarily. Encephalopathy appears to be improving but it is inconsistent due to sedation. 06/06/2019-not awake at the time of this encounter. Because of the high alcohol level the encephalopathy is most likely toxic from alcohol and benzodiazepines. The alcohol should be metabolized. She requires Versed for sedation while intubated. We are trying to wean this as well. Full evaluation for ence phalopathy will be difficult until she is extubated. 06/07/2019-toxic encephalopathy appears to be improving. The patient does have windows where she is communicative with family. These are brief. Continue to wean sedation. BuSpar, Depakote and citalopram have been added. 06/08/2019-patient appears to be somewhat more calm on the above regimen. 06/09/2019-very agitated. No meaningful communication. She may in fact have anoxic injury on top of chronic alcohol use. (3) Upper GI bleed Is this a current diagnosis for this admission?: Yes Plan: Will start Protonix and Sandostatin drip. Type and screen. Will consult surgery. 06/04: She just had an EGD which showed actively bleeding gastric ulcer. Bleeding was stopped with Hemospray and ethanol sclerosis by surgicalist. Switch Protonix drip to IV Protonix after current drip is consumed. MARCEL sandostatin. 06/05/2019-reviewed with Dr. Trinh. She had a large ulcer on the lesser c urvature. It was injected. The tissue appeared friable. She also had gastritis and esophagitis. We will change to Protonix 40 mg every 8 hours IV and continue the Carafate. We will continue to monitor the hemoglobin. 06/05/2019-hemoglobin is stable and so it is unlikely that GI bleeding is contri buting to low blood pressure. 06/06/2019-hemoglobin is improving. Bleeding has likely stopped altogether. A stool for Helicobacter pylori antigen has been ordered. 06/07/2019-H. pylori antigen is pending. Hemoglobin fact is improving. We will continue proton pump inhibitor and Carafate. 06/08/2019-hemoglobin has been stable. Helicobacter pylori antigen is pending. 06/09/2019-no evidence of recurrent bleeding. H. pylori antigen is still pending. She is not able to cooperate with swallowing. We may need to replace the orogastric tube with a nasogastric tube so that she can get her Carafate as well as other medications. (4) Alcohol intoxication Qualifiers: Complication of substance-induced condition: uncomplicated Qualified Code(s): F10.920 - Alcohol use, unspecified with intoxication, uncomplicated Is this a current diagnosis for this admission?: Yes Plan: Supportive care 06/05/2019-the patient is on Versed and has as needed lorazepam available. The Versed should cover withdrawal symptoms. We will continue to monitor closely. 06/06/2019-serum alcohol 337 on admission. Medication adjustments will be made to try and ease the transition off of Versed for extubation. 06/07/2019-encourage cessation post recovery. 06/08/2019-there is a significant possibility that prolonged alcohol use has caused an encephalopathy. An anoxic encephalopathy is very likely as well. We will assess patient after she is extubated as a conversation with her would be more helpful. 06/09/2019-initial intoxication resolved. Her current behavior could be related to encephalopathic changes from anoxia or chronic alcohol use. (5) Aspiration pneumonia Is this a current diagnosis for this admission?: Yes Plan: On Zosyn. 06/05/2019-patient is on Zosyn. Sputum Gram stain did show gram-positive cocci. I have added vancomycin. I will have pharmacy dose the medication. Chest x-ray today showed increased density at the left base. 06/05/2019-the Gram stain for the sputum specimen is available. There are gram-positive cocci in pairs with some yeast and some gram-positive rods. There were 2+ polys. There were epithelial cells. I am going to add vancomycin to the Zosyn. I have ordered repeat blood cultures and a lactic acid. If infection is contributing to the hypotension then expanding antibiotics should help. 06/06/2019-continue vancomycin and Zosyn at this time. 06/07/2019-continue antibiotics as ordered. White blood cell count is normal. 06/08/2019-complete antibiotic therapy as ordered. 06/09/2019-several more days of antibiotic therapy to complete the course. (6) Suicide attempt Is this a current diagnosis for this admission?: Yes Plan: Psych consulted. 06/05/2019-the patient drank alcohol and took benzodiazepines. When she is extub ated psychiatry will assess the patient. Consider antidepressant therapy. The QT interval is still normal. We will monitor if we add antidepressant therapy. 06/06/2019-pending psychiatric evaluation once extubated. 06/07/2019-as above 06/08/2019-IVC form completed. Psychiatry will add to the patient until she is communicative. 06/09/2019-still on involuntary commitment. Unfortunately she is not able to meaningfully communicate and so psychiatry has not interviewed her yet. Continue IVC. (7) Hypotension Qualifiers: Hypotension type: hypotension due to hypovolemia Qualified Code(s): I95.89 - Other hypotension; E86.1 - Hypovolemia Is this a current diagnosis for this admission?: Yes Plan: 06/05/2019-the patient did have a negative fluid balance 2 days ago. Her fluid b alance of 5 today is negative. I will give 1 L of fluid at 500 mL/h over 2 hours. I will check your blood pressure response. I did order repeat blood cultures and a lactic acid level. She has been on Zosyn but sepsis is a possibility. Her low blood pressure control to be due to the propofol and Versed. We will try to keep her map greater than 65. 06/06/2019-blood pressure still low. She did receive some fluid. We would like to keep her map greater than 65. 06/07/2019-still with marginal pressures. When we can taper the patient from her Versed and propofol blood pressure should improve. 06/08/2019-blood pressures have been stable off of propofol and Versed. 06/09/2019-blood pressure is reasonable. No change in treatment plan. (8) On parenteral nutrition Is this a current diagnosis for this admission?: Yes Plan: 06/05/2019-surgery has approved so we will institute tube feedings. Nutrition has suggested the tube feed formula as well as suggested rates. Flushes every 4 hours as well. 06/06/2019-appears to be tolerating tube feeds. 06/07/2019-continue tube feeds. Increase slowly to goal rate as determined by the dietitian. 06/08/2019-we will start diet once the orogastric tube is out pending swallow evaluation. 06/09/2019-the patient is too agitated and unable to swallow safely. We are going to reinsert and nasogastric tube in order to continue her appropriate medications. (9) Diarrhea Qualifiers: Diarrhea type: unspecified type Qualified Code(s): R19.7 - Diarrhea, unspecified Is this a current diagnosis for this admission?: Yes Plan: 06/07/2019-still with dark stool likely secondary to processing of old blood. The stool was in fact sent for C. difficile testing and this was negative. We may need to change tube feeds if loose stools persist. 06/08/2019-tube feeds likely contributing to loose stool. Consider removing fecal collection system once she is on a regular diet. 06/09/2019-fecal output has decreased. It is likely that once tube feeds resumed she will have loose stool. We will continue to monitor. - Time Time Spent with patient: 15-24 minutes Medications reviewed and adjusted accordingly: Yes
--- NOTE | 2019-06-09 15:47 | RADIOLOGY REPORT (SQ) ---
EXAM DESCRIPTION: KUB/ABDOMEN (SINGLE VIEW) COMPLETED DATE/TIME: 06/09/2019 3:35 pm REASON FOR STUDY: NGT placement COMPARISON: None. NUMBER OF VIEWS: One view. TECHNIQUE: Supine radiographic image of the abdomen acquired. LIMITATIONS: None. FINDINGS: Nasogastric tube tip overlies the stomach. No evidence of obstruction. IMPRESSION: Nasogastric tube in the stomach. Reading location - IP/workstation name: [email or web address]
[2019-06-09 16:48] LABS: ANION GAP 7 (5-19); BLOOD UREA NITROGEN 4 mg/dL (7-20); CALCIUM 8.8 mg/dL (8.4-10.2); CARBON DIOXIDE 24 mmol/L (22-30); CHLORIDE 108 mmol/L (98-107); GLUCOSE 115 mg/dL (75-110); POTASSIUM 3.6 mmol/L (3.6-5.0)
[2019-06-09] MEDS: RISPERIDONE 0.25 MG TABLET NG SCH (17:23)
--- NOTE | 2019-06-09 19:28 | PSYCHOLOGICAL NOTE ---
Psych Note - Psych Note Date seen by psych provider: 06/09/19 Time seen by psych provider: 18:00 Psych Note: Reason For Consult:Intentional overdose Consent Permissions: Unable to provide Patient has been extubated yesterday however continues to be unable to engage in evaluation. Patient was fidgeting and needed a NG tube placed. Diagnosis: Major depressive disorder per history Bereavement Medication recommendations per [facility]'s contracted psychiatrist Dr. Sarah Beth JACQUES are as follows Please add Zyprexa 2.5 mg twice daily please reduce BuSpar to 5 mg twice daily Impression\plan:Patient was extubated so IVC paperwork has been initiated. Patient has a history of depression with a suicide attempt back in 2015. Patient's reportedly committed suicide September 2018. Patient has been engaged in services per family for guilt and grief. Patient reportedly contacted family via text disclosing suicidal ideation. She was then found unresponsive. Medication recommendations have been provided; patient will be reevaluated. Dr. Vallejo was consulted to care management of this patient; attending physicians in agreement with recommendations and disposition.
[2019-06-09] MEDS: SUCRALFATE 1 GM TABLET NG SCH (21:14)
[2019-06-10] MEDS: LORAZEPAM INJ 2 MG/1 ML VIAL IV PRN ×2 (00:50→05:11)
[2019-06-10] MEDS: PANTOPRAZOLE SODIUM 40 MG VIAL IV SCH ×3 (02:32→18:21)
[2019-06-10] MEDS: PIPERACILLIN SODIUM/TAZOBACTAM 3.375 GM in NORMAL SALINE 100 ML IV SCH ×4 (02:47→21:25)
[2019-06-10 04:11] LABS: ANION GAP 8 (5-19); BLOOD UREA NITROGEN 5 mg/dL (7-20); CALCIUM 9.1 mg/dL (8.4-10.2); CARBON DIOXIDE 26 mmol/L (22-30); CHLORIDE 106 mmol/L (98-107); GLUCOSE 113 mg/dL (75-110); POTASSIUM 3.6 mmol/L (3.6-5.0)
[2019-06-10] MEDS: VANCOMYCIN HCL 750 MG in DEXTROSE 5%-WATER 250 ML IV SCH ×2 (05:10→18:21)
[2019-06-10] MEDS: SUCRALFATE 1 GM TABLET NG SCH ×3 (05:11→21:25)
[2019-06-10] MEDS: IPRATROPIUM/ALBUTEROL 0.5-2.5 MG/3 ML AMPUL NEB SCH ×2 (08:05→16:33)
[2019-06-10] MEDS: BUSPIRONE HCL 10 MG TABLET NG SCH ×2 (10:55→21:26)
[2019-06-10] MEDS: CITALOPRAM HYDROBROMIDE 20 MG TABLET NG SCH (10:56)
[2019-06-10] MEDS: RISPERIDONE 0.25 MG TABLET NG SCH ×2 (10:57→18:21)
[2019-06-10] MEDS: AMINO AC/PROTEIN HYDR/WHEY PRO 11 GM/45 ML PKT GT SCH ×3 (10:58→18:20)
[2019-06-10] MEDS: POTASSIUM CHLORIDE 20 MEQ PACKET NG SCH ×2 (10:58→21:25)
[2019-06-10] MEDS: VALPROATE SODIUM SYRUP 250 MG/5 ML UDCUP NG SCH ×2 (10:59→21:25)
[2019-06-10] MEDS ORDERED: ACETAMINOPHEN SOLN 325 MG/10.15 ML UDCUP ONE (11:50)
[2019-06-10] MEDS: ACETAMINOPHEN SOLN 325 MG/10.15 ML UDCUP PO PRN ×2 (11:55→18:21)
--- NOTE | 2019-06-10 12:17 | PSYCHOLOGICAL NOTE ---
Psych Note - Psych Note Date seen by psych provider: 06/10/19 Time seen by psych provider: 08:34 - Chart review at 0834. Discussion with ICU [place] at 1058 who spoke to atttending nurse. Psych Note: Presenting Problem: IVC, OD of alcohol and Valium, extubation weening began on 06/08/19 at 0819. Serum Alcohol Level was 337 upon arrival to ED. UDS is positive for benzodiazepines. She was seen on 12/22/15 for suicidal ideations. Patient still sedated and confused 06/09/[address] [facility] Beh Clinician attempted contact. Today spoke to Lynne ICU Therapist Radiation who was consulting with attending nurse Kathia. They identified unsure when medical clearance will be, patient is barely responding now but did ask for orange juice this morning, will likely downgrade from ICU to IMCU at some point today however not medically cleared. Diagnosis: OD Medication recommendations made by the psychiatric medication provider, Dr. Sarah Beth MD., includes: Please Add Zyprexa 2.5 mg twice daily Please Decrease Buspar to 5 mg twice daily Impression/Plan: Recommendation to maintain IVC. Patient had an OD of alcohol and Valium, previous SI attempts and MH Hx. Patient still note medically cleared and continued to be confused. Consulted with Dr. Vallejo regarding the management and care of patient. Attending Hospitalist aware of recommendations.
[2019-06-10] MEDS ORDERED: METOPROLOL TARTRATE PF/INJ 5 MG/5 ML SDV IV PRN (13:53)
--- NOTE | 2019-06-10 14:30 | PDOC PROGRESS REPORT ---
Subjective Progress Note for:: 06/10/19 Subjective:: The patient is resting in bed. She is not agitated but no meaningful verbal interaction. Of note, telemetry shows episodic bigeminy. Reason For Visit: OVERDOSE,ASP PNEUMONIA,ACUTE RESPIRATORY FAILURE Physical Exam Vital Signs: Temp Pulse Resp BP Pulse Ox 100.8 F H 91 28 H 99/72 L 94 06/10/19 12:00 06/10/19 08:07 06/10/19 12:00 06/10/19 11:46 06/10/19 12:00 Intake & Output 06/09/19 06/10/19 06/11/19 06:59 06:59 06:59 Intake Total 3169 1100 Output Total 3990 6055 300 Balance -821 -1305 -300 Weight 52.7 kg 51.4 kg General appearance: PRESENT: no acute distress, well-developed Head exam: PRESENT: atraumatic, normocephalic Respiratory exam: PRESENT: crackles - Faint crackles on the right but difficult to tell due to limited inspiratory phase., symmetrical, unlabored. ABSENT: accessory muscle use, rhonchi, tachypnea, wheezes Cardiovascular exam: PRESENT: +S1, +S2, tachycardia - With occasional irregular beats. Pulses: PRESENT: normal radial pulses, normal dorsalis pedis pul GI/Abdominal exam: PRESENT: diminished bowel sounds, soft. ABSENT: distended, tenderness Rectal exam: PRESENT: deferred Extremities exam: ABSENT: joint swelling, pedal edema Musculoskeletal exam: PRESENT: normal inspection Neurological exam: ABSENT: awake Psychiatric exam: ABSENT: agitated Focused psych exam: PRESENT: restlessness - Less restlessness today, other - No meaningful verbal interaction with the patient. And able to follow direction. Skin exam: PRESENT: dry, normal color, warm Results Laboratory Results: 06/07/19 05:37 06/10/19 03:22 06/09/19 06/09/19 06/10/19 16:10 16:10 03:22 Sodium 138.9 140.3 Potassium 3.6 3.6 Chloride 108 H 106 Carbon Dioxide 24 26 Anion Gap 7 8 BUN 4 L 5 L Creatinine 0.36 L 0.34 L Est GFR ( Amer) > 60 > 60 Glucose 115 H 113 H Calcium 8.8 9.1 Magnesium 1.8 1.6 06/06/19 08:35 Stool - Stool Helicobacter pylori Antigen - Final Impressions: Head CT 06/02/19 18:57 IMPRESSION: 1. No acute hemorrhage or mass effect 2. redundant loop of the orogastric tube extends superiorly into the nasopharynx; consider repositioning. Chest CT 06/02/19 20:03 IMPRESSION: 1. Areas of atelectasis/consolidation at the lung bases, left greater than right. No pleural effusions. 2. No hematoma, fluid collection, or contusion is seen in the body wall. 3. No acute intra-abdominal findings. Abdomen/Pelvis CT 06/02/19 20:53 IMPRESSION: 1. Areas of atelectasis/consolidation at the lung bases, left greater than right. No pleural effusions. 2. No hematoma, fluid collection, or contusion is seen in the body wall. 3. No acute intra-abdominal findings. Chest X-Ray 06/07/19 06:00 IMPRESSION: Slight improvement. No pneumothorax. KUB X-Ray 06/09/19 15:20 IMPRESSION: Nasogastric tube in the stomach. Assessment and Plan - Diagnosis (1) Acute respiratory failure with hypoxia Is this a current diagnosis for this admission?: Yes Plan: Secondary to benzodiazepine overdose and alcohol intoxication. Intubated. On minimal vent settings. 06/04: Doing well on minimal vent settings. Start weaning trials tomorrow. 06/05/2019-the patient remains intubated. When we lower the sedation she gets very restless. We will start weaning trials. She is at risk for ventilator associated pneumonia versus the initial aspiration pneumonia suspected. 06/05/2019-the patient remains intubated and sedated. She was awake this afternoon. We will continue trials of sedation vacation and institute weaning trials. 06/06/2019-we will continue to trial sedation vacation and weaning. Pulmonology will be seeing the patient as well. The patient is likely getting through the window for detox. I will also add medications to help with agitation and anxiety such as Depakote. This may help ease the transition of decrease sedation to extubation. 06/07/2019-please also see pulmonology note. Continued weaning trials. Currently the patient is resting on SIMV. Continue nebulizer treatments and pulmonary toilet. We will continue weaning trials with a goal of extubation in the next day or 2. 06/08/2019-patient did fairly well weaning from this morning. I think in the order to extubate. We will go to face tent first and taper oxygen as tolerated. 06/09/2019-on nasal cannula. Saturations are acceptable. 06/10/2019-the patient remains on nasal cannula. Acute respiratory failure is resolved. (2) Acute encephalopathy Is this a current diagnosis for this admission?: Yes Plan: Currently intubated. 06/05/2019-the patient does have windows of responsiveness. At the time of this encounter she is not responding. Will continue to assess as sedation decreases. Consider mood stabilizer such as Depakote. She may also benefit from SSRI t herapy. 06/05/2019-she was actually awake this afternoon and she appeared to understand what her son was saying. She maintained eye contact temporarily. Encephalopathy appears to be improving but it is inconsistent due to sedation. 06/06/2019-not awake at the time of this encounter. Because of the high alcohol level the encephalopathy is most likely toxic from alcohol and benzodiazepines. The alcohol should be metabolized. She requires Versed for sedation while intubated. We are trying to wean this as well. Full evaluation for encephalopathy will be difficult until she is extubated. 06/07/2019-toxic encephalopathy appears to be improving. The patient does have windows where she is communicative with family. These are brief. Continue to wean sedation. BuSpar, Depakote and citalopram have been added. 06/08/2019-patient appears to be somewhat more calm on the above regimen. 06/09/2019-very agitated. No meaningful communication. She may in fact have anoxic injury on top of chronic alcohol use. 06/10/2019-still encephalopathic. It was unknown how long the patient was down before being intubated. With her history of alcohol use these are certainly could be a degree of permanent damage. (3) Upper GI bleed Is this a current diagnosis for this admission?: Yes Plan: Will start Protonix and Sandostatin drip. Type and screen. Will consult surgery. 06/04: She just had an EGD which showed actively bleeding gastric ulcer. Bleeding was stopped with Hemospray and ethanol sclerosis by surgicalist. Switch Protonix drip to IV Protonix after current drip is consumed. MARCEL sandostatin. 06/05/2019-reviewed with Dr. Trinh. She had a large ulcer on the lesser curvature. It was injected. The tissue appeared friable. She also had gastritis and esophagitis. We will change to Protonix 40 mg every 8 hours IV and continue the Carafate. We will continue to monitor the hemoglobin. 06/05/2019-hemoglobin is stable and so it is unlikely that GI bleeding is contributing to low blood pressure. 06/06/2019-hemoglobin is improving. Bleeding has likely stopped altogether. A stool for Helicobacter pylori antigen has been ordered. 06/07/2019-H. pylori antigen is pending. Hemoglobin fact is improving. We will continue proton pump inhibitor and Carafate. 06/08/2019-hemoglobin has been stable. Helicobacter pylori antigen is pending. 06/09/2019-no evidence of recurrent bleeding. H. pylori antigen is still pending. She is not able to cooperate with swallowing. We may need to replace the orogastric tube with a nasogastric tube so that she can get her Carafate as well as other medications. 06/10/2019-the H. pylori antigen was negative. The hemoglobin is stable. The upper GI bleed is resolved. (4) Alcohol intoxication Qualifiers: Complication of substance-induced condition: uncomplicated Qualified Code(s): F10.920 - Alcohol use, unspecified with intoxication, uncomplicated Is this a current diagnosis for this admission?: Yes Plan: Supportive care 06/05/2019-the patient is on Versed and has as needed lorazepam available. The Versed should cover withdrawal symptoms. We will continue to monitor closely. 06/06/2019-serum alcohol 337 on admission. Medication adjustments will be made to try and ease the transition off of Versed for extubation. 06/07/2019-encourage cessation post recovery. 06/08/2019-there is a significant possibility that prolonged alcohol use has caused an encephalopathy. An anoxic encephalopathy is very likely as well. We will assess patient after she is extubated as a conversation with her would be more helpful. 06/09/2019-initial intoxication resolved. Her current behavior could be related to encephalopathic changes from anoxia or chronic alcohol use. 06/10/2019-the patient is no longer intoxicated but is encephalopathic. Likely long-term damage from alcohol use. (5) Aspiration pneumonia Is this a current diagnosis for this admission?: Yes Plan: On Zosyn. 06/05/2019-patient is on Zosyn. Sputum Gram stain did show gram-positive cocci. I have added vancomycin. I will have pharmacy dose the medication. Chest x-ray today showed increased density at the left base. 06/05/2019-the Gram stain for the sputum specimen is available. There are gram- positive cocci in pairs with some yeast and some gram-positive rods. There were 2+ polys. There were epithelial cells. I am going to add vancomycin to the Zosyn. I have ordered repeat blood cultures and a lactic acid. If infection is contributing to the hypotension then expanding antibiotics should help. 06/06/2019-continue vancomycin and Zosyn at this time. 06/07/2019-continue antibiotics as ordered. White blood cell count is normal. 06/08/2019-complete antibiotic therapy as ordered. 06/09/2019-several more days of antibiotic therapy to complete the course. 06/10/2019-the patient's white blood cell count is up slightly. Post extubation she was noted not to have a safe swallow. Nasogastric tube was reinserted. It is possible at some point she aspirated. We may need to extend the antibiotics. We will repeat a chest x-ray and monitor her white blood cell count. (6) Suicide attempt Is this a current diagnosis for this admission?: Yes Plan: Psych consulted. 06/05/2019-the patient drank alcohol and took benzodiazepines. When she is extubated psychiatry will assess the patient. Consider antidepressant therapy. The QT interval is still normal. We will monitor if we add antidepressant therapy. 06/06/2019-pending psychiatric evaluation once extubated. 06/07/2019-as above 06/08/2019-IVC form completed. Psychiatry will add to the patient until she is communicative. 06/09/2019-still on involuntary commitment. Unfortunately she is not able to meaningfully communicate and so psychiatry has not interviewed her yet. Continue IVC. 06/10/2019-we will continue IVC at this time. Appreciate medication recommendations. (7) Hypotension Qualifiers: Hypotension type: hypotension due to hypovolemia Qualified Code(s): I95.89 - Other hypotension; E86.1 - Hypovolemia Is this a current diagnosis for this admission?: Yes Plan: 06/05/2019-the patient did have a negative fluid balance 2 days ago. Her fluid balance of 5 today is negative. I will give 1 L of fluid at 500 mL/h over 2 hours. I will check your blood pressure response. I did order repeat blood c ultures and a lactic acid level. She has been on Zosyn but sepsis is a possibility. Her low blood pressure control to be due to the propofol and Versed. We will try to keep her map greater than 65. 06/06/2019-blood pressure still low. She did receive some fluid. We would like to keep her map greater than 65. 06/07/2019-still with marginal pressures. When we can taper the patient from her Versed and propofol blood pressure should improve. 06/08/2019-blood pressures have been stable off of propofol and Versed. 06/09/2019-blood pressure is reasonable. No change in treatment plan. 06/10/2019-the patient still has borderline hypertension. She is off of propofol and Versed. We will continue to monitor her pressures. She has had a negative fluid balance and may need a fluid challenge of her pressure decreases. (8) On parenteral nutrition Is this a current diagnosis for this admission?: Yes Plan: 06/05/2019-surgery has approved so we will institute tube feedings. Nutrition has suggested the tube feed formula as well as suggested rates. Flushes every 4 hours as well. 06/06/2019-appears to be tolerating tube feeds. 06/07/2019-continue tube feeds. Increase slowly to goal rate as determined by the dietitian. 06/08/2019-we will start diet once the orogastric tube is out pending swallow evaluation. 06/09/2019-the patient is too agitated and unable to swallow safely. We are going to reinsert and nasogastric tube in order to continue her appropriate medications. 06/10/2019-nasogastric tube has been inserted. We will resume tube feeds. (9) Diarrhea Qualifiers: Diarrhea type: unspecified type Qualified Code(s): R19.7 - Diarrhea, unspecified Is this a current diagnosis for this admission?: Yes Plan: 06/07/2019-still with dark stool likely secondary to processing of old blood. The stool was in fact sent for C. difficile testing and this was negative. We may need to change tube feeds if loose stools persist. 06/08/2019-tube feeds likely contributing to loose stool. Consider removing fecal collection system once she is on a regular diet. 06/09/2019-fecal output has decreased. It is likely that once tube feeds resumed she will have loose stool. We will continue to monitor. 06/10/2019-tube feeds will be resumed. Will monitor stool output. May need to change the formula of the tube feed based on her diarrhea. (10) Bigeminy Is this a current diagnosis for this admission?: Yes Plan: 06/10/2019-today the patient exhibits some bigeminy and occasional PVCs. Electrolytes are normal. She does not have an abnormally prolonged QT interval. She certainly could have irritated myocardium. We will continue to monitor. (11) Fever Is this a current diagnosis for this admission?: Yes Plan: 06/10/2019-the patient has a low-grade fever. We will repeat cultures. She is at high risk for aspiration. We will check a chest x-ray and monitor her white blood cell count. - Time Time Spent with patient: 15-24 minutes Medications reviewed and adjusted accordingly: Yes
--- NOTE | 2019-06-10 16:07 | RADIOLOGY REPORT (SQ) ---
EXAM DESCRIPTION: CHEST SINGLE VIEW COMPLETED DATE/TIME: 06/10/2019 3:14 pm REASON FOR STUDY: possible aspiration COMPARISON: 06/07/2019 NUMBER OF VIEWS: One view. TECHNIQUE: Single frontal radiographic image of the chest acquired. LIMITATIONS: None. FINDINGS: LUNGS AND PLEURA: Small left pleural effusion and associated airspace disease. More diffu se interstitial pattern than on the prior, possibly due to technique, however cannot exclude a compon ent of pulmonary edema. MEDIASTINUM AND HEART: Stable heart size and mediastinal structures. SUPPORT DEVICES: Unchanged position of nasogastric tube. Endotracheal tube has been removed. BONY STRUCTURES: No acute findings. HARDWARE: None. OTHER: No other significant finding. IMPRESSION: Left lower lobe infection or aspiration. Question superimposed pulmonary edema. Clinic al correlation is needed. Reading location - IP/workstation name: [email or web address]
[2019-06-10 18:21] LABS: APPEARANCE,URINE CLEAR; BILIRUBIN,URINE NEGATIVE (NEGATIVE); COLOR,URINE YELLOW; GLUCOSE, URINE NEGATIVE (NEGATIVE); KETONES,URINE 20 mg/dL (NEGATIVE); LEUKOCYTE ESTERASE,URINE NEGATIVE (NEGATIVE); NITRITE,URINE NEGATIVE (NEGATIVE); PROTEIN,URINE NEGATIVE (NEGATIVE); URINE SPECIFIC GRAVITY 1.018; UROBILINOGEN,URINE NEGATIVE mg/dL (<2.0)
--- NOTE | 2019-06-10 18:48 | EKG REPORT ---
SEVERITY:- BORDERLINE ECG - SINUS RHYTHM BORDERLINE T ABNORMALITIES, INFERIOR LEADS : Confirmed by: Giovana Wright 10-Jun-2019 18:47:27
[2019-06-10] MEDS: OLANZAPINE 2.5 MG TABLET PO SCH (21:25)
[2019-06-10] MEDS: METOPROLOL TARTRATE 25 MG TABLET PO SCH (21:25)
[2019-06-11] MEDS: IPRATROPIUM/ALBUTEROL 0.5-2.5 MG/3 ML AMPUL NEB SCH ×4 (00:08→23:58)
[2019-06-11] MEDS: PANTOPRAZOLE SODIUM 40 MG VIAL IV SCH ×2 (02:34→19:13)
[2019-06-11] MEDS: PIPERACILLIN SODIUM/TAZOBACTAM 3.375 GM in NORMAL SALINE 100 ML IV SCH ×4 (02:34→23:48)
[2019-06-11 04:11] LABS: ABSOLUTE EOSINOPHILS # (AUTO) 0.3 10^3/uL (0.0-0.6); ABSOLUTE NEUT (AUTO) 8.9 10^3/uL (1.7-8.2); BASOPHILS % (AUTO) 0.2 % (0-2); EOSINOPHILS % (AUTO) 2.1 % (0-6); HEMATOCRIT 34.8 % (36.0-47.0); LYMPHOCYTES % (AUTO) 15.4 % (13-45); MEAN CORPUSCULAR HEMOGLOBIN 31.5 pg (27.0-33.4); MEAN CORPUSCULAR HGB CONC 34.4 g/dL (32.0-36.0); MEAN CORPUSCULAR VOLUME 92 fl (80-97); PLATELET COUNT 411 10^3/uL (150-450); RED CELL DISTRIBUTION WIDTH 12.1 % (11.5-14.0); SEGMENTED NEUTROPHILS % (AUTO) 67.3 % (42-78); TOTAL CELLS COUNTED % (AUTO) 100 %; WHITE BLOOD COUNT 13.2 10^3/uL (4.0-10.5)
[2019-06-11 04:29] LABS: ANION GAP 11 (5-19); BLOOD UREA NITROGEN 10 mg/dL (7-20); CALCIUM 9.1 mg/dL (8.4-10.2); CARBON DIOXIDE 22 mmol/L (22-30); CHLORIDE 107 mmol/L (98-107); GLUCOSE 130 mg/dL (75-110); POTASSIUM 3.4 mmol/L (3.6-5.0)
[2019-06-11] MEDS: POTASSIUM CHLORIDE 20 MEQ/50 ML RTU IV SCH ×2 (05:02→09:55)
[2019-06-11] MEDS: VANCOMYCIN HCL 750 MG in DEXTROSE 5%-WATER 250 ML IV SCH ×2 (05:02→18:32)
[2019-06-11] MEDS: SUCRALFATE 1 GM TABLET NG SCH ×3 (05:02→23:49)
[2019-06-11] MEDS: OLANZAPINE 2.5 MG TABLET PO SCH (10:41)
[2019-06-11] MEDS: POTASSIUM CHLORIDE 20 MEQ PACKET NG SCH ×2 (10:41→23:50)
[2019-06-11] MEDS: VALPROATE SODIUM SYRUP 250 MG/5 ML UDCUP NG SCH ×2 (10:41→23:52)
[2019-06-11] MEDS: AMINO AC/PROTEIN HYDR/WHEY PRO 11 GM/45 ML PKT GT SCH (10:41)
[2019-06-11] MEDS: METOPROLOL TARTRATE 25 MG TABLET PO SCH (10:41)
[2019-06-11] MEDS: BUSPIRONE HCL 10 MG TABLET NG SCH ×2 (10:42→23:49)
[2019-06-11] MEDS: CITALOPRAM HYDROBROMIDE 20 MG TABLET NG SCH (10:42)
[2019-06-11] MEDS: RISPERIDONE 0.25 MG TABLET NG SCH (10:42)
[2019-06-11] MEDS: AMINO AC/PROTEIN HYDR/WHEY PRO 11 GM/45 ML PKT NG SCH ×2 (13:57→18:32)
[2019-06-11] MEDS ORDERED: ACETAMINOPHEN SOLN 325 MG/10.15 ML UDCUP NG PRN (14:00)
[2019-06-11] MEDS ORDERED: PANTOPRAZOLE SODIUM 40 MG TABLET.DR PO SCH (18:00)
[2019-06-11] MEDS: PANTOPRAZOLE SODIUM 40 MG PACKET.DR NG SCH (18:46)
--- NOTE | 2019-06-11 20:08 | PSYCHOLOGICAL NOTE ---
Psych Note - Psych Note Date seen by psych provider: 06/11/19 Time seen by psych provider: 08:22 - Chart review at 0822. Discussion with ICU Nurse at 1708. Spoke to Dr. Lisa at 1845. Psych Note: Presenting Problem: IVC, OD of alcohol and Valium, extubation weening began on 06/08/19 at 0819. Serum Alcohol Level was 337 upon arrival to ED. UDS is positive for benzodiazepines. She was seen on 12/22/15 for suicidal ideations. Yesterday patient's continued admit criteria was: ARF with hypoxia, acute encephalopathy, upper GI bleed, alcohol intoxication, aspiration pneumonia, SI attempt, HTN, onparenteral nutrition, diarrhea, bigeminy and fever. Today spoke to Darlyn in ICU. She identified patient isn't really able to engage/interact. She reported patient is still confused but knew she was at [facility]. She stated patient rambles and mumbles. She also noted patient is fidgety and restless. She was made aware once patient is medically cleared will likely seek inpatient hospitalization. Spoke to Dr. Lisa about [facility] following patient and past tow days being chart reviews and checking in with medical staff. Diagnosis: OD Impression/Plan: Recommendation to maintain IVC. Patient had an OD of alcohol and Valium, previous SI attempts and MH Hx. Patient still not medically cleared and continued to be confused with inability to engage or interact. Consulted with Dr. Vallejo regarding the management and care of patient. Attending Hospitalist aware of recommendations.
--- NOTE | 2019-06-11 23:16 | RADIOLOGY REPORT (SQ) ---
EXAM DESCRIPTION: XR ABDOMEN 1 VIEW (KUB) COMPLETED DATE/TME: 06/11/2019 21:47 CLINICAL HISTORY: 59 years Female, ng tube verification COMPARISON: Same day. TECHNIQUE/LIMITATION: Targeted exam for enteric tube assessment. FINDINGS: Adequate appearing enteric tube with tip at the upper abdomen involving a left upper abdominal course. Atherosclerotic vascular disease. IMPRESSION: Enteric tube.
[2019-06-11] MEDS: METOPROLOL TARTRATE 25 MG TABLET NG SCH (23:50)
[2019-06-11] MEDS: OLANZAPINE 2.5 MG TABLET NG SCH (23:57)
[2019-06-12] MEDS: PIPERACILLIN SODIUM/TAZOBACTAM 3.375 GM in NORMAL SALINE 100 ML IV SCH ×4 (03:15→21:11)
[2019-06-12] MEDS: SUCRALFATE 1 GM TABLET NG SCH ×3 (05:48→21:10)
[2019-06-12] MEDS: VANCOMYCIN HCL 750 MG in DEXTROSE 5%-WATER 250 ML IV SCH ×3 (05:48→21:11)
[2019-06-12] MEDS: PANTOPRAZOLE SODIUM 40 MG PACKET.DR NG SCH (05:48)
[2019-06-12 05:59] LABS: ABSOLUTE BASOPHILS # (AUTO) 0.1 10^3/uL (0.0-0.2); ABSOLUTE EOSINOPHILS # (AUTO) 0.3 10^3/uL (0.0-0.6); ABSOLUTE LYMPHOCYTES (AUTO) 1.9 10^3/uL (0.5-4.7); ABSOLUTE MONOCYTES (AUTO) 1.3 10^3/uL (0.1-1.4); ABSOLUTE NEUT (AUTO) 5.6 10^3/uL (1.7-8.2); BASOPHILS % (AUTO) 1.1 % (0-2); EOSINOPHILS % (AUTO) 3.8 % (0-6); HEMATOCRIT 35.5 % (36.0-47.0); HEMOGLOBIN 12.1 g/dL (12.0-15.5); LYMPHOCYTES % (AUTO) 20.8 % (13-45); MEAN CORPUSCULAR HEMOGLOBIN 31.5 pg (27.0-33.4); MEAN CORPUSCULAR HGB CONC 34.1 g/dL (32.0-36.0); MEAN CORPUSCULAR VOLUME 92 fl (80-97); MONOCYTES % (AUTO) 13.6 % (3-13); PLATELET COUNT 466 10^3/uL (150-450); RED BLOOD COUNT 3.84 10^6/uL (3.72-5.28); RED CELL DISTRIBUTION WIDTH 12.2 % (11.5-14.0); SEGMENTED NEUTROPHILS % (AUTO) 60.7 % (42-78); TOTAL CELLS COUNTED % (AUTO) 100 %; WHITE BLOOD COUNT 9.3 10^3/uL (4.0-10.5)
[2019-06-12 06:30] LABS: ALBUMIN 3.3 g/dL (3.5-5.0); ALKALINE PHOSPHATASE 55 U/L (38-126); ANION GAP 9 (5-19); ASPARTATE AMINO TRANSFERASE 31 U/L (14-36); BILIRUBIN,DIRECT 0.2 mg/dL (0.0-0.4); BILIRUBIN,TOTAL 0.4 mg/dL (0.2-1.3); BLOOD UREA NITROGEN 9 mg/dL (7-20); CALCIUM 9.4 mg/dL (8.4-10.2); CARBON DIOXIDE 27 mmol/L (22-30); CHLORIDE 106 mmol/L (98-107); GLUCOSE 166 mg/dL (75-110); POTASSIUM 4.1 mmol/L (3.6-5.0); TOTAL PROTEIN 5.9 g/dL (6.3-8.2); VANCOMYCIN,TROUGH 5.7 ug/mL (5.0-20.0)
[2019-06-12] MEDS: IPRATROPIUM/ALBUTEROL 0.5-2.5 MG/3 ML AMPUL NEB SCH ×3 (08:15→23:37)
[2019-06-12] MEDS: CITALOPRAM HYDROBROMIDE 20 MG TABLET NG SCH (09:54)
[2019-06-12] MEDS: VALPROATE SODIUM SYRUP 250 MG/5 ML UDCUP NG SCH ×2 (09:55→21:11)
[2019-06-12] MEDS: POTASSIUM CHLORIDE 20 MEQ PACKET NG SCH ×2 (09:55→21:11)
[2019-06-12] MEDS: BUSPIRONE HCL 10 MG TABLET NG SCH ×2 (09:55→21:10)
[2019-06-12] MEDS: METOPROLOL TARTRATE 25 MG TABLET NG SCH ×2 (09:55→21:10)
[2019-06-12] MEDS: AMINO AC/PROTEIN HYDR/WHEY PRO 11 GM/45 ML PKT NG SCH ×4 (09:56→17:37)
[2019-06-12] MEDS: OLANZAPINE 2.5 MG TABLET NG SCH ×2 (09:59→21:10)
--- NOTE | 2019-06-12 20:03 | PDOC PROGRESS REPORT ---
Subjective Progress Note for:: 06/12/19 Subjective:: The patient was seen on afternoon rounds. She was found resting in bed comfortably on supplemental oxygen via 2 L/min. She does stir slightly when I say her name and listen to lung sounds, but does not wake fully. Per nursing, she has been sleeping throughout the day; she does not answer questions or follow directions at this time. ROS is limited secondary to mental status. She does appear to be comfortable and not in any acute distress. Unfortunately there are no family members present at this time. No concerns per nursing. Reason For Visit: OVERDOSE,ASP PNEUMONIA,ACUTE RESPIRATORY FAILURE Physical Exam Vital Signs: Temp Pulse Resp BP Pulse Ox 99.4 F 75 14 104/51 L 90 L 06/12/19 08:48 06/12/19 16:10 06/12/19 16:10 06/12/19 10:00 06/12/19 16:10 Intake & Output 06/11/19 06/12/19 06/13/19 06:59 06:59 06:59 Intake Total 900 1225 1105 Output Total 2260 1875 Balance -1360 -650 1105 Weight 50.3 kg 49.4 kg General appearance: PRESENT: no acute distress, thin, well-developed Head exam: PRESENT: atraumatic, normocephalic Eye exam: PRESENT: conjunctiva pink, EOMI, PERRLA. ABSENT: scleral icterus Ear exam: PRESENT: normal external ear exam Mouth exam: PRESENT: moist, tongue midline Teeth exam: PRESENT: poor dentation Neck exam: ABSENT: carotid bruit, JVD, lymphadenopathy, thyromegaly Respiratory exam: PRESENT: decreased breath sounds - Poor inspiratory effort, symmetrical, unlabored, other - Supplemental oxygen by nasal cannula 2 L/min. ABSENT: rales, rhonchi, wheezes Cardiovascular exam: PRESENT: RRR, +S1, +S2. ABSENT: diastolic murmur, rubs, systolic murmur Pulses: PRESENT: normal dorsalis pedis pul Vascular exam: PRESENT: normal capillary refill GI/Abdominal exam: PRESENT: normal bowel sounds, soft, other - NG tube with tube feedings. ABSENT: distended, guarding, mass, organolmegaly, rebound, tenderness Rectal exam: PRESENT: deferred Extremities exam: PRESENT: full ROM. ABSENT: calf tenderness, clubbing, pedal edema Neurological exam: PRESENT: CN II-XII grossly intact, other - Sleeping soundly; per nursing confused when awake and does not follow directions or answer questions. ABSENT: motor sensory deficit Skin exam: PRESENT: dry, intact, warm. ABSENT: cyanosis, rash Results Laboratory Results: 06/12/19 05:42 06/12/19 05:42 06/12/19 06/12/19 05:42 05:42 WBC 9.3 RBC 3.84 Hgb 12.1 Hct 35.5 L MCV 92 MCH 31.5 MCHC 34.1 RDW 12.2 Plt Count 466 H Seg Neutrophils % 60.7 Sodium 141.9 Potassium 4.1 Chloride 106 Carbon Dioxide 27 Anion Gap 9 BUN 9 Creatinine 0.40 L Est GFR ( Amer) > 60 Glucose 166 H Calcium 9.4 Magnesium 1.7 Total Bilirubin 0.4 AST 31 Alkaline Phosphatase 55 Total Protein 5.9 L Albumin 3.3 L 06/10/19 17:20 Catheterized Urine Urine Culture - Final NO GROWTH 2 DAYS Impressions: Head CT 06/02/19 18:57 IMPRESSION: 1. No acute hemorrhage or mass effect 2. redundant loop of the orogastric tube extends superiorly into the nasopharynx; consider repositioning. Chest CT 06/02/19 20:03 IMPRESSION: 1. Areas of atelectasis/consolidation at the lung bases, left greater than right. No pleural effusions. 2. No hematoma, fluid collection, or contusion is seen in the body wall. 3. No acute intra-abdominal findings. Abdomen/Pelvis CT 06/02/19 20:53 IMPRESSION: 1. Areas of atelectasis/consolidation at the lung bases, left greater than right. No pleural effusions. 2. No hematoma, fluid collection, or contusion is seen in the body wall. 3. No acute intra-abdominal findings. Chest X-Ray 06/10/19 14:40 IMPRESSION: Left lower lobe infection or aspiration. Question superimposed pulmonary edema. Clinical correlation is needed. KUB X-Ray 06/11/19 21:47 IMPRESSION: Enteric tube. Assessment and Plan - Diagnosis (1) Acute encephalopathy Is this a current diagnosis for this admission?: Yes Plan: Remains encephalopathic. It was unknown how long the patient was down before being intubated. With her history of alcohol use these are certainly could be a degree of permanent damage. Today, patient is arousable, but quickly falls back to sleep. She does not answer questions or follow directions. Continue to monitor on continuous cardiac telemetry. We will support nutrition with tube feeds. Fall, aspiration precautions. (2) Acute respiratory failure with hypoxia Is this a current diagnosis for this admission?: Yes Plan: Resolved. Secondary to benzodiazepine overdose and alcohol intoxication. Patient did require intubation; extubated 06/08/2019. Continue supplemental oxygen via nasal cannula as needed to maintain oxygen saturations. Continue scheduled and as needed nebulizer treatments. (3) Alcohol intoxication Qualifiers: Complication of substance-induced condition: uncomplicated Qualified Code(s): F10.920 - Alcohol use, unspecified with intoxication, uncomplicated Is this a current diagnosis for this admission?: Yes Plan: Serum alcohol 337 on admission. Patient initially required intubation and was treated on a Versed drip; this was successfully weaned. No evidence of alcohol withdrawal at this time. Her current behavior could be related to encephalopathic changes from anoxia or chronic alcohol use. Daily multivitamin, thiamine, and folic acid supplementations. (4) Upper GI bleed Is this a current diagnosis for this admission?: Yes Plan: Resolved. She just had an EGD which showed actively bleeding gastric ulcer. Bleeding was stopped with Hemospray and ethanol sclerosis by surgicalist. Initially treated with a Protonix and Sandostatin drip. No evidence of recurrent bleeding. H. pylori antigen was negative. Continue daily IV Protonix and Carafate every 8 hours via NG. No indications for antibiotic therapy at this time; H. pylori negative. (5) Aspiration pneumonia Qualifiers: Aspiration pneumonia type: due to gastric secretions Laterality: bilateral Is this a current diagnosis for this admission?: No Plan: Improved; now maintaining oxygen saturations on nasal cannula 2 L/min, leukocytosis has resolved, T-max 100.0 in the last 24 hours. Blood cultures have no growth at 48 hours. Sputum culture revealed normal yolie. Continue IV vancomycin and Zosyn. Continue supplemental oxygen, scheduled and as needed nebs. Patient is unable to participate pulmonary toilet secondary to altered mental status, ensure frequent turns and repositioning (6) Bigeminy Is this a current diagnosis for this admission?: Yes Plan: Some bigeminy and occasional PVCs noted Electrolytes are normal. She does not have an abnormally prolonged QT interval. She certainly could have irritated myocardium. Continue to monitor on cardiac telemetry. (7) Diarrhea Qualifiers: Diarrhea type: unspecified type Qualified Code(s): R19.7 - Diarrhea, unspecified Is this a current diagnosis for this admission?: Yes Plan: Likely secondary to tube feedings. C. difficile negative. We will monitor stool output closely. We will ask registered dietitian to make recommendations. (8) Fever Is this a current diagnosis for this admission?: Yes Plan: Likely secondary to aspiration pneumonia. T-max 100.0 last 24 hours. Leukocytosis has resolved. Cultures and antibiotics as above. (9) Hypotension Qualifiers: Hypotension type: hypotension due to hypovolemia Qualified Code(s): I95.89 - Other hypotension; E86.1 - Hypovolemia Is this a current diagnosis for this admission?: Yes Plan: Borderline hypotension. Have initiated tube feeds; this should help balance her fluid balance/increase albumin. No evidence of sepsis at this time. No indications for pressor support. Continue monitor closely. (10) On parenteral nutrition Is this a current diagnosis for this admission?: Yes Plan: Continue tube feedings via NG tube. Registered dietitian is reconsulted to make dietary recommendations secondary to frequent loose stools. We will monitor chemistries closely to ensure the patient does not develop refeeding syndrome. (11) Suicide attempt Is this a current diagnosis for this admission?: Yes Plan: Psych consulted. Patient remains on involuntary commitment status. - Time Time Spent with patient: 35 or more minutes Medications reviewed and adjusted accordingly: Yes
--- NOTE | 2019-06-12 20:04 | Progress Note Acknowledgement ---
Progress Note Acknowledgement Progess Note Acknowledgement: I, the undersigned member of the medical staff with appropriate privileges and with supervisory authority over Araceli White, a [facility] practice allied health professional, acknowledge that I have reviewed the progress notes entered on this patient, and in my professional judgment believe that the assessment made and/or any care evidenced was appropriate
[2019-06-13] MEDS: PIPERACILLIN SODIUM/TAZOBACTAM 3.375 GM in NORMAL SALINE 100 ML IV SCH ×4 (03:00→21:08)
[2019-06-13] MEDS: VANCOMYCIN HCL 750 MG in DEXTROSE 5%-WATER 250 ML IV SCH (06:19)
[2019-06-13] MEDS: SUCRALFATE 1 GM TABLET NG SCH ×3 (06:19→21:08)
[2019-06-13] MEDS: IPRATROPIUM/ALBUTEROL 0.5-2.5 MG/3 ML AMPUL NEB SCH ×2 (08:28→16:42)
[2019-06-13 08:38] LABS: ABSOLUTE EOSINOPHILS # (AUTO) 0.4 10^3/uL (0.0-0.6); ABSOLUTE LYMPHOCYTES (AUTO) 1.7 10^3/uL (0.5-4.7); ABSOLUTE MONOCYTES (AUTO) 1.1 10^3/uL (0.1-1.4); ABSOLUTE NEUT (AUTO) 6.4 10^3/uL (1.7-8.2); BASOPHILS % (AUTO) 0.5 % (0-2); EOSINOPHILS % (AUTO) 4.4 % (0-6); HEMATOCRIT 33.7 % (36.0-47.0); HEMOGLOBIN 11.4 g/dL (12.0-15.5); LYMPHOCYTES % (AUTO) 17.4 % (13-45); MEAN CORPUSCULAR HEMOGLOBIN 31.6 pg (27.0-33.4); MEAN CORPUSCULAR HGB CONC 33.8 g/dL (32.0-36.0); MEAN CORPUSCULAR VOLUME 94 fl (80-97); MONOCYTES % (AUTO) 11.7 % (3-13); PLATELET COUNT 550 10^3/uL (150-450); RED CELL DISTRIBUTION WIDTH 12.2 % (11.5-14.0); TOTAL CELLS COUNTED % (AUTO) 100 %; WHITE BLOOD COUNT 9.7 10^3/uL (4.0-10.5)
[2019-06-13 09:02] LABS: ALBUMIN 3.3 g/dL (3.5-5.0); ALKALINE PHOSPHATASE 54 U/L (38-126); ANION GAP 9 (5-19); ASPARTATE AMINO TRANSFERASE 24 U/L (14-36); BILIRUBIN,DIRECT 0.2 mg/dL (0.0-0.4); BILIRUBIN,TOTAL 0.3 mg/dL (0.2-1.3); BLOOD UREA NITROGEN 9 mg/dL (7-20); CALCIUM 9.1 mg/dL (8.4-10.2); CARBON DIOXIDE 29 mmol/L (22-30); CHLORIDE 103 mmol/L (98-107); GLUCOSE 252 mg/dL (75-110); PHOSPHORUS 3.7 mg/dL (2.5-4.5); POTASSIUM 3.7 mmol/L (3.6-5.0); TOTAL PROTEIN 5.7 g/dL (6.3-8.2)
[2019-06-13] MEDS: BUSPIRONE HCL 10 MG TABLET NG SCH ×2 (10:18→21:08)
[2019-06-13] MEDS: POTASSIUM CHLORIDE 20 MEQ PACKET NG SCH ×2 (10:19→21:09)
[2019-06-13] MEDS: THIAMINE HCL 100 MG TABLET PO SCH (10:19)
[2019-06-13] MEDS: MULTIVITAMINS W-IRON TABLET, CHEWABLE PO SCH (10:19)
[2019-06-13] MEDS: FOLIC ACID 1 MG TABLET PO SCH (10:19)
[2019-06-13] MEDS: CITALOPRAM HYDROBROMIDE 20 MG TABLET NG SCH (10:19)
[2019-06-13] MEDS: METOPROLOL TARTRATE 25 MG TABLET NG SCH ×2 (10:19→21:09)
[2019-06-13] MEDS: PANTOPRAZOLE SODIUM 40 MG VIAL IV SCH (10:20)
[2019-06-13] MEDS: AMINO AC/PROTEIN HYDR/WHEY PRO 11 GM/45 ML PKT NG SCH ×3 (10:25→18:23)
[2019-06-13] MEDS: VALPROATE SODIUM SYRUP 250 MG/5 ML UDCUP NG SCH (10:26)
[2019-06-13] MEDS: OLANZAPINE 2.5 MG TABLET NG SCH (10:27)
[2019-06-13] MEDS ORDERED: DEXTROSE 50%-WATER 25 GM/50 ML DISP.SYRIN IV PRN ×2 (12:08)
[2019-06-13] MEDS ORDERED: DEXTROSE 40% GEL 15 GM TUBE PO PRN ×2 (12:08)
[2019-06-13] MEDS ORDERED: GLUCAGON,HUMAN RECOMB 1 MG INJ IM PRN (12:08)
--- NOTE | 2019-06-13 14:32 | PSYCHOLOGICAL NOTE ---
Psych Note - Psych Note Date seen by psych provider: 06/13/19 Time seen by psych provider: 13:00 - attempted Psych Note: Reason For Consult:Intentional overdose Consent Permissions: Unable to provide 59-year-old female with hypothyroidism, hypertension presents via EMS intubated, unresponsive. EMS reports that they were called to the house by family members who report that the patient sent a text stating that she was going to kill herself. Check in conducted with patient was attempted. Patient was being bathed. Attending nurse reports the patient is able to engage in conversation now but does have moments of confusion. Diagnosis: Major depressive disorder per history Bereavement Medication recommendations per [facility]'s contracted psychiatrist Dr. Sarah Beth JACQUES are as follows Please add Zyprexa 2.5 mg twice daily please reduce BuSpar to 5 mg twice daily Impression\plan:Patient recommended to continue under IVC. Patient has a history of depression with a suicide attempt back in 2015. Patient's reportedly committed suicide September 2018. Patient has been engaged in services per family for guilt and grief. Patient reportedly contacted family via text disclosing suicidal ideation. She was then found unresponsive. Medication recommendations have been provided; patient will be reevaluated. Dr. Vallejo was consulted to care management of this patient; attending physicians in agreement with recommendations and disposition.
--- NOTE | 2019-06-13 14:38 | RADIOLOGY REPORT (SQ) ---
EXAM DESCRIPTION: KUB/ABDOMEN (SINGLE VIEW) COMPLETED DATE/TIME: 06/13/2019 2:22 pm REASON FOR STUDY: NG tube placement COMPARISON: AP view of the chest from 06/11/2019 NUMBER OF VIEWS: One view. TECHNIQUE: A single AP view of the chest was obtained. LIMITATIONS: None. FINDINGS: The tip of the enteric tube projects past the gastroesophageal junction and within the gas tric lumen. There is abrupt cut off of the left main bronchus and total opacification of the left lung. There is shift of the mediastinal structures to the left. There is no consolidation or sizable pleural effus ion on the contralateral side. There is no pneumothorax. The cardiac silhouette is obscured. The p ulmonary vasculature is within normal limits. IMPRESSION: 1. Tip of the enteric tube projects within the gastric lumen. 2. Total opacification of the left lung with abrupt cut off of the left main bronchus. The findings could be secondary to a mucous plug. TECHNICAL DOCUMENTATION: JOB ID: [id number] [employer]- All Rights Reserved Reading location - IP/workstation name: [email or web address]
[2019-06-13 17:08] LABS: FREE T3 3.18 pg/mL (2.77-5.27); FREE T4 (FREE THYROXINE) 0.78 ng/dL (0.78-2.19)
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
[2019-06-13] MEDS ORDERED: OLANZAPINE 2.5 MG TABLET PO SCH (18:00)
[2019-06-13] MEDS: INSULIN LISPRO 100 UNIT/ML 3 ML VIAL SUBCUT SCH (18:24)
[2019-06-13] MEDS: GUAIFENESIN SYRP 200 MG/10 ML UDC PO SCH (18:33)
--- NOTE | 2019-06-13 18:57 | NEURO WORKBENCH EEG REPORT ---
EEG Report Patient: Christine Hamlin ID: [id number] Referring Doctor: Araceli Ferrer DOS: 06/13/19 Medications: Tylenol, duoneb, prsource, buspar, celexa, folvite, insulin, Lopressor, multivitamins, iron, protonix, sucralfate, thiamine, vancomycin, KCl, piperacillin History This is a 59 year old right handed woman with a history of thyroid disease, hypertension, asthma, colonoscopy, bladder sling, fibromyalgia/chronic pain, Raynauds, alcohol use, tobacco use, hysterectomy, cataract, depression who was admitted with an overdose, aspiration pneumonia, acute respiratory failure. The patient is on oxygen. This EEG was requested for altered mental status. EEG Interpretation This EEG was recorded in the awake and mild drowsy states. The awake EEG is characterized by a well-organized background with a well-developed and reactive posterior dominant rhythm of 11Hz. There is an asymmetry, lower amplitude over the right posterior region (T4-O2). The remainder of the background consisted of a mix of mainly alpha activity. Drowsiness is characterized by slowing of the background rhythms. Photic stimulation resulted in a moderate driving response. There were fairly frequent sharply contoured waveforms that were not definitively epileptiform (primarily in left posterior temporal region) and rare sharp waves in the left posterior temporal region (maximal T5). The EKG showed an irregular rhythm with several PVCs. EEG Classification Sharp waves, left posterior temporal, rare Asymmetry, lower amplitude right temporal-occipital Irregular EKG EEG Impression This EEG is abnormal. The sharp waves are suggestive of a potentially epileptogenic focus in the left posterior temporal region. There were no seizures. Clinical correlation is required. The asymmetry suggests a potential structural lesion in the right temporal-occipital region. Correlation with neuroimaging is recommended. The EKG showed an irregular rhythm that may require further investigation. INTERPRETING NEUROLOGIST: Kelley Ervin MD, FRCPC Board Certified in Neurology, with special qualification in Child Neurology, and in Clinical Neurophysiology [facility]
[2019-06-13] MEDS: ACETYLCYSTEINE 20% SOLN 800 MG/4 ML VIAL.NEB NEB SCH (19:57)
[2019-06-13] MEDS: IPRATROPIUM/ALBUTEROL 0.5-2.5 MG/3 ML AMPUL NEB PRN (19:58)
[2019-06-13] MEDS ORDERED: OLANZAPINE INJ/PF 10 MG SDV IM ONE (21:15)
[2019-06-14] MEDS: IPRATROPIUM/ALBUTEROL 0.5-2.5 MG/3 ML AMPUL NEB SCH ×3 (02:08→15:41)
[2019-06-14] MEDS: PIPERACILLIN SODIUM/TAZOBACTAM 3.375 GM in NORMAL SALINE 100 ML IV SCH ×4 (03:00→21:47)
[2019-06-14] MEDS: INSULIN LISPRO 100 UNIT/ML 3 ML VIAL SUBCUT SCH ×4 (03:01→17:24)
[2019-06-14 05:37] LABS: HEMATOCRIT 34.5 % (36.0-47.0); HEMOGLOBIN 11.7 g/dL (12.0-15.5); MEAN CORPUSCULAR HEMOGLOBIN 31.1 pg (27.0-33.4); MEAN CORPUSCULAR VOLUME 91 fl (80-97); PLATELET COUNT 586 10^3/uL (150-450); RED BLOOD COUNT 3.78 10^6/uL (3.72-5.28); WHITE BLOOD COUNT 13.8 10^3/uL (4.0-10.5)
[2019-06-14] MEDS: GUAIFENESIN SYRP 200 MG/10 ML UDC PO SCH ×4 (05:49→17:24)
[2019-06-14] MEDS: SUCRALFATE 1 GM TABLET NG SCH ×2 (05:55→13:28)
[2019-06-14] MEDS: LEVOTHYROXINE SODIUM 0.025 MG TABLET PO SCH (05:56)
[2019-06-14] MEDS: ACETYLCYSTEINE 20% SOLN 800 MG/4 ML VIAL.NEB NEB SCH ×2 (08:11→20:15)
--- NOTE | 2019-06-14 09:44 | RADIOLOGY REPORT (SQ) ---
EXAM DESCRIPTION: CHEST SINGLE VIEW COMPLETED DATE/TIME: 06/14/2019 9:33 am REASON FOR STUDY: Dyspnea COMPARISON: 06/10/2019 EXAM PARAMETERS: NUMBER OF VIEWS: One view. TECHNIQUE: Single frontal radiographic view of the chest acquired. RADIATION DOSE: NA LIMITATIONS: None. FINDINGS: There is a marked interval increase in consolidation and volume loss of the left lung and enlargement of a left pleural effusion. There is an abrupt truncation of the left mainstem bronchus suggesting bronchial occlusion. There is minimal diffuse interstitial opacity of the aerated right l michelle. Probable cardiomegaly. Recommend CT to further evaluate, findings are suspicious for mass. IMPRESSION: There is a marked interval increase in consolidation and volume loss of the left lung an d enlargement of a left pleural effusion. There is an abrupt truncation of the left mainstem bronchus suggesting bronchial occlusion. There is minimal diffuse interstitial opacity of the aerated right lung. Probable cardiomegaly. Recommend CT to further evaluate, findings are suspicious for mass. TECHNICAL DOCUMENTATION: JOB ID: [id number] [employer]- All Rights Reserved Reading location - IP/workstation name: [email or web address]
[2019-06-14] MEDS: AMINO AC/PROTEIN HYDR/WHEY PRO 11 GM/45 ML PKT NG SCH ×3 (10:04→17:24)
[2019-06-14] MEDS: POTASSIUM CHLORIDE 20 MEQ PACKET NG SCH (10:05)
[2019-06-14] MEDS: THIAMINE HCL 100 MG TABLET PO SCH (10:09)
[2019-06-14] MEDS: BUSPIRONE HCL 10 MG TABLET NG SCH (10:09)
[2019-06-14] MEDS: FOLIC ACID 1 MG TABLET PO SCH (10:09)
[2019-06-14] MEDS: CITALOPRAM HYDROBROMIDE 20 MG TABLET NG SCH (10:09)
[2019-06-14] MEDS: METOPROLOL TARTRATE 25 MG TABLET NG SCH (10:09)
[2019-06-14] MEDS: OLANZAPINE 5 MG TABLET PO SCH ×2 (10:09→21:46)
[2019-06-14] MEDS: PANTOPRAZOLE SODIUM 40 MG VIAL IV SCH (10:09)
[2019-06-14] MEDS: MULTIVITAMINS W-IRON TABLET, CHEWABLE PO SCH (10:11)
--- NOTE | 2019-06-14 11:40 | RADIOLOGY REPORT (SQ) ---
EXAM DESCRIPTION: CHEST 3 VIEWS COMPLETED DATE/TIME: 06/14/2019 11:23 am REASON FOR STUDY: dyspnea; need PA/LAT and Lt Lat decub view COMPARISON: 06/14/2019 EXAM PARAMETERS: NUMBER OF VIEWS: Three views TECHNIQUE: Digital Frontal and Lateral radiographic views of the chest acquired. Left lateral decubi tus views acquired. RADIATION DOSE: NA LIMITATIONS: none FINDINGS: LUNGS AND PLEURA: Reduced volume in the left hemithorax. Considerable retrocardiac opacif ication. There is not appear to be significant pleural effusion. MEDIASTINUM AND HILAR STRUCTURES: No masses or contour abnormalities. HEART AND VASCULAR STRUCTURES: Cardiomegaly. BONES: No acute findings. HARDWARE: None in the chest. OTHER: No other significant finding. IMPRESSION: Cardiomegaly without pulmonary edema. Reduced volume on the left with considerable retr ocardiac opacification suggesting considerable atelectasis in the left lung. TECHNICAL DOCUMENTATION: JOB ID: [id number] [employer]- All Rights Reserved Reading location - IP/workstation name: [email or web address]
[2019-06-14] MEDS ORDERED: OLANZAPINE INJ/PF 10 MG SDV IM ONE (15:00)
[2019-06-14] MEDS ORDERED: LACTULOSE SYRUP 20 GM/30 ML UDCUP PO PRN (16:30)
[2019-06-14] MEDS ORDERED: ACETAMINOPHEN SOLN 325 MG/10.15 ML UDCUP PO PRN (16:30)
--- NOTE | 2019-06-14 16:40 | PSYCHOLOGICAL NOTE ---
Psych Note - Psych Note Date seen by psych provider: 06/14/19 Time seen by psych provider: 10:24 - Discussion when attending Hospitalist called at [phone]. Psych Note: Presenting Problem: IVC, OD of alcohol and Valium, extubation weening began on 06/08/19 at 0819. Serum Alcohol Level was 337 upon arrival to ED. UDS is positive for benzodiazepines. She was seen on 12/22/15 for suicidal ideations. Today attending Hospitalist called [facility]. She noted patient was not medically cleared yet, chest X-ray revealed lungs look terrible and she needs suction via tube or needle, consent is needed, she inquired about son's reliability and stated if patient worsens she may have to be intubated again. Diagnosis: OD Impression/Plan: Recommendation to maintain IVC. Patient had an OD of alcohol and Valium, previous SI attempts and MH Hx. Patient still not medically cleared and medical issues seem to be worsening. Consulted with Dr. Vallejo regarding the management and care of patient. Attending Hospitalist aware of recommendations.
[2019-06-14] MEDS: LORAZEPAM INJ 2 MG/1 ML VIAL IV PRN (17:23)
--- NOTE | 2019-06-14 17:57 | PDOC PROGRESS REPORT ---
Subjective Progress Note for:: 06/14/19 Subjective:: The patient is a 59-year-old female with a past medical history of hypertension, asthma, hypothyroidism, arthritis, depression, suicidal depression, substance and alcohol abuse. The patient was seen on morning rounds with her [id number] present; did speak with patient's son, Basim, by phone. Attempted to call the patient's other son, Deshaun, however there was no answer. Voicemail left. She was found resting in bed comfortably on supplemental oxygen via 2 L/min. She is awake, alert and orientated to self and place today. She answers all other questions inappropriately; she is noted to be somewhat agitated and impulsive this morning. ROS is limited secondary to mental status. She does appear to be comfortable and not in any acute distress. No concerns per nursing. Reason For Visit: OVERDOSE,ASP PNEUMONIA,ACUTE RESPIRATORY FAILURE Physical Exam Vital Signs: Temp Pulse Resp BP Pulse Ox 98.2 F 87 18 114/57 L 95 06/14/19 15:03 06/14/19 15:44 06/14/19 15:44 06/14/19 15:03 06/14/19 15:44 Intake & Output 06/13/19 06/14/19 06/15/19 06:59 06:59 06:59 Intake Total 2305 711 300 Output Total 2300 Balance 5 711 300 Weight 52.8 kg 48.8 kg General appearance: PRESENT: no acute distress, disheveled, thin, well- developed, well-nourished Head exam: PRESENT: atraumatic, normocephalic Eye exam: PRESENT: conjunctiva pink, EOMI, PERRLA. ABSENT: scleral icterus Ear exam: PRESENT: normal external ear exam Mouth exam: PRESENT: moist, tongue midline Teeth exam: PRESENT: poor dentation Neck exam: ABSENT: carotid bruit, JVD, lymphadenopathy, thyromegaly Respiratory exam: PRESENT: clear to auscultation mercedes, decreased breath sounds - absent left side, symmetrical, unlabored, other - supplemental oxygen. ABSENT: rales, rhonchi, wheezes Cardiovascular exam: PRESENT: RRR, +S1, +S2. ABSENT: diastolic murmur, rubs, systolic murmur Pulses: PRESENT: normal dorsalis pedis pul Vascular exam: PRESENT: normal capillary refill GI/Abdominal exam: PRESENT: normal bowel sounds, soft. ABSENT: distended, guarding, mass, organolmegaly, rebound, tenderness Rectal exam: PRESENT: deferred Extremities exam: PRESENT: full ROM. ABSENT: calf tenderness, clubbing, pedal edema Neurological exam: PRESENT: alert, awake, oriented to person, oriented to place, CN II-XII grossly intact, other - Impulsive, poor safety awareness,Confused. ABSENT: oriented to time, oriented to situation, motor sensory deficit Psychiatric exam: PRESENT: appropriate affect, normal mood. ABSENT: homicidal ideation, suicidal ideation Skin exam: PRESENT: dry, intact, warm. ABSENT: cyanosis, rash Results Laboratory Results: 06/14/19 05:23 06/13/19 08:01 06/14/19 05:23 WBC 13.8 H RBC 3.78 Hgb 11.7 L Hct 34.5 L MCV 91 MCH 31.1 MCHC 34.0 RDW 12.0 Plt Count 586 H Impressions: Head CT 06/02/19 18:57 IMPRESSION: 1. No acute hemorrhage or mass effect 2. redundant loop of the orogastric tube extends superiorly into the nasopharynx; consider repositioning. Chest CT 06/02/19 20:03 IMPRESSION: 1. Areas of atelectasis/consolidation at the lung bases, left greater than right. No pleural effusions. 2. No hematoma, fluid collection, or contusion is seen in the body wall. 3. No acute intra-abdominal findings. Abdomen/Pelvis CT 06/02/19 20:53 IMPRESSION: 1. Areas of atelectasis/consolidation at the lung bases, left greater than right. No pleural effusions. 2. No hematoma, fluid collection, or contusion is seen in the body wall. 3. No acute intra-abdominal findings. KUB X-Ray 06/13/19 00:00 IMPRESSION: 1. Tip of the enteric tube projects within the gastric lumen. 2. Total opacification of the left lung with abrupt cut off of the left main bronchus. The findings could be secondary to a mucous plug. Apical Lordotic X-Ray 06/14/19 00:00 IMPRESSION: Cardiomegaly without pulmonary edema. Reduced volume on the left with considerable retrocardiac opacification suggesting considerable atelectasis in the left lung. Chest X-Ray 06/14/19 00:00 IMPRESSION: There is a marked interval increase in consolidation and volume loss of the left lung and enlargement of a left pleural effusion. There is an abrupt truncation of the left mainstem bronchus suggesting bronchial occlusion. There is minimal diffuse interstitial opacity of the aerated right lung. Probable cardiomegaly. Recommend CT to further evaluate, findings are suspicious for mass. Assessment and Plan - Diagnosis (1) Acute encephalopathy Is this a current diagnosis for this admission?: Yes Plan: Remains encephalopathic; increased alertness today. Patient is now oriented to self and place; However, not time or place and becomes easily confused and agitated. She is noted to have poor safety awareness and impulsivity. It was unknown how long the patient was down before being intubated. With her history of alcohol use these are certainly could be a degree of permanent damage. EEG demonstrated possible structural lesion to the right temporal occipital area. Negative for epilepsy. May need to consider MRI in the future, however, at this time the patient would not be able to participate with exam. Continue to monitor on continuous cardiac telemetry. I have increased patient's Zyprexa to 5 mg twice daily. PRN Ativan for agitation. Unfortunately, patient can require soft limb restraints. Supportive care. Fall, aspiration precautions. (2) Acute respiratory failure with hypoxia Is this a current diagnosis for this admission?: Yes Plan: Improved; continues to require supplemental oxygen to maintain saturations. Secondary to benzodiazepine overdose and alcohol intoxication. Patient did require intubation; extubated 06/08/2019. Follow-up chest x-ray today reveals a total left side obesity; consistent with mucous plug. Repeat imaging today confirms mucous plug; negative for pneumothorax or pleural effusion. Continue supplemental oxygen via nasal cannula as needed to maintain oxygen saturations. Continue scheduled and as needed nebulizer treatments. Have added scheduled Robitussin and Mucomyst nebulizer treatments. Start chest physiotherapy with postural drainage. Out of bed 3 times daily, ambulate. Discussed with pulmonology today; Dr. Vizcarra recommends aggressive respiratory toilet. If does not resolve, will plan for bronchoscopy early next week. Did confirm with family members today that the patient remains a full cold and they would like for intubation if the patient's respiratory status becomes compromised. (3) Alcohol intoxication Qualifiers: Complication of substance-induced condition: uncomplicated Qualified Code(s): F10.920 - Alcohol use, unspecified with intoxication, uncomplicated Is this a current diagnosis for this admission?: Yes Plan: Serum alcohol 337 on admission. Patient initially required intubation and was treated on a Versed drip; this was successfully weaned. No evidence of alcohol withdrawal at this time. Her current behavior could be related to encephalopathic changes from anoxia or chronic alcohol use. Daily multivitamin, thiamine, and folic acid supplementations. (4) Upper GI bleed Is this a current diagnosis for this admission?: Yes Plan: Resolved. She had an EGD which showed actively bleeding gastric ulcer. Bleeding was stopped with Hemospray and ethanol sclerosis by surgicalist. Initially treated with a Protonix and Sandostatin drip. No evidence of recurrent bleeding. H. pylori antigen was negative. Continue daily IV Protonix and Carafate every 8 hours via NG. No indications for antibiotic therapy at this time; H. pylori negative. (5) Aspiration pneumonia Qualifiers: Aspiration pneumonia type: due to gastric secretions Laterality: bilateral Is this a current diagnosis for this admission?: No Plan: Improved; now maintaining oxygen saturations on nasal cannula 2 L/min, afebrile x48 hours. WBCs 13.8 today. Blood cultures have no growth at 4 days. Sputum culture revealed normal yolie. Continue IV Zosyn. Have discontinued IV vancomycin as the patient is clinically improved, afebrile, normal WBC, without history of MRSA. Continue supplemental oxygen, scheduled and as needed nebs. Patient is unable to participate pulmonary toilet secondary to altered mental status, ensure frequent turns and repositioning Chest physiotherapy with postural drainage. (6) Bigeminy Is this a current diagnosis for this admission?: Yes Plan: Some bigeminy and occasional PVCs noted Electrolytes are normal. She does not have an abnormally prolonged QT interval. She certainly could have irritated myocardium. Continue to monitor on cardiac telemetry. (7) Diarrhea Qualifiers: Diarrhea type: unspecified type Qualified Code(s): R19.7 - Diarrhea, u nspecified Is this a current diagnosis for this admission?: Yes Plan: Likely secondary to tube feedings; these have since been discontinued.. C. difficile negative. (8) Fever Is this a current diagnosis for this admission?: Yes Plan: Likely secondary to aspiration pneumonia. Afebrile x48 hours Cultures and antibiotics as above. (9) Hypotension Qualifiers: Hypotension type: hypotension due to hypovolemia Qualified Code(s): I95.89 - Other hypotension; E86.1 - Hypovolemia Is this a current diagnosis for this admission?: Yes Plan: Borderline hypotension. Have initiated tube feeds; this should help balance her fluid balance/increase albumin. No evidence of sepsis at this time. No indications for pressor support. Continue monitor closely. (10) On parenteral nutrition Is this a current diagnosis for this admission?: Yes Plan: Discontinued. Patient passed bedside swallow eval Speech therapy was consulted; recommends continued pured diet with nectar thickened liquids. Registered dietitian is consulted. (11) Suicide attempt Is this a current diagnosis for this admission?: Yes Plan: Psych consulted. Patient remains on involuntary commitment status. (12) Mucus plugging of bronchi Is this a current diagnosis for this admission?: Yes Plan: Follow-up chest x-ray today reveals a total left side obesity; consistent with mucous plug. Follow-up imaging today confirms mucous plug; negative for pleural effusion. Continue supplemental oxygen via nasal cannula as needed to maintain oxygen saturations. Continue scheduled and as needed nebulizer treatments. Have added scheduled Robitussin and Mucomyst nebulizer treatments. Start chest physiotherapy with postural drainage. Out of bed 3 times daily, ambulate. May need to consider pulmonology consultation; discussed with Dr. Vizcarra, if does not resolve with chest physiotherapy/pulmonary toilet, may need to plan for bronchoscopy early next week. (13) Hypothyroidism Is this a current diagnosis for this admission?: Yes Plan: TSH is 28 Free T4 0.78, free T3 3.18. Levothyroxine 25 mcg daily. - Time Time Spent with patient: 35 or more minutes Medications reviewed and adjusted accordingly: Yes Anticipated discharge: Other - Inpatient psychiatric facility
[2019-06-14] MEDS: IPRATROPIUM/ALBUTEROL 0.5-2.5 MG/3 ML AMPUL NEB PRN (20:15)
[2019-06-14] MEDS: METOPROLOL TARTRATE 25 MG TABLET PO SCH (21:46)
[2019-06-14] MEDS: SUCRALFATE 1 GM TABLET PO SCH (21:47)
[2019-06-14] MEDS: BUSPIRONE HCL 10 MG TABLET PO SCH (21:47)
[2019-06-14] MEDS: POTASSIUM CHLORIDE 20 MEQ PACKET PO SCH (21:47)
[2019-06-15] MEDS: IPRATROPIUM/ALBUTEROL 0.5-2.5 MG/3 ML AMPUL NEB SCH ×3 (00:27→16:22)
[2019-06-15] MEDS: INSULIN LISPRO 100 UNIT/ML 3 ML VIAL SUBCUT SCH ×4 (01:26→18:21)
[2019-06-15] MEDS: GUAIFENESIN SYRP 200 MG/10 ML UDC PO SCH ×5 (01:27→23:53)
[2019-06-15] MEDS: PIPERACILLIN SODIUM/TAZOBACTAM 3.375 GM in NORMAL SALINE 100 ML IV SCH ×4 (02:50→21:44)
[2019-06-15 04:57] LABS: ARTERIAL BLOOD BASE EXCESS -0.7 mmol/L; ARTERIAL BLOOD H2CO3 1.22 mmol/L (1.05-1.35); ARTERIAL BLOOD HCO3 24.1 mmol/L (20-24); ARTERIAL BLOOD O2 SATURATION 93.4 % (94-98); ARTERIAL BLOOD PCO2 40.5 mmHg (35-45); ARTERIAL BLOOD PH 7.39 (7.35-7.45); ARTERIAL BLOOD PO2 67.5 mmHg (80-100); ARTERIAL BLOOD TOTAL CO2 25.4 mmol/L (21-25)
[2019-06-15 04:58] LABS: ARTERIAL BLOOD FIO2 32%
[2019-06-15] MEDS: SUCRALFATE 1 GM TABLET PO SCH ×3 (05:17→21:45)
[2019-06-15] MEDS: LEVOTHYROXINE SODIUM 0.025 MG TABLET PO SCH (05:18)
[2019-06-15 06:40] LABS: HEMATOCRIT 34.9 % (36.0-47.0); MEAN CORPUSCULAR HEMOGLOBIN 31.5 pg (27.0-33.4); MEAN CORPUSCULAR HGB CONC 34.4 g/dL (32.0-36.0); MEAN CORPUSCULAR VOLUME 92 fl (80-97); PLATELET COUNT 607 10^3/uL (150-450); RED BLOOD COUNT 3.81 10^6/uL (3.72-5.28); RED CELL DISTRIBUTION WIDTH 12.2 % (11.5-14.0); WHITE BLOOD COUNT 11.6 10^3/uL (4.0-10.5)
[2019-06-15] MEDS: ACETYLCYSTEINE 20% SOLN 800 MG/4 ML VIAL.NEB NEB SCH ×2 (08:21→21:13)
[2019-06-15] MEDS: MULTIVITAMINS W-IRON TABLET, CHEWABLE PO SCH (10:08)
[2019-06-15] MEDS: POTASSIUM CHLORIDE 20 MEQ PACKET PO SCH ×2 (10:08→21:48)
[2019-06-15] MEDS: METOPROLOL TARTRATE 25 MG TABLET PO SCH ×2 (10:09→21:45)
[2019-06-15] MEDS: BUSPIRONE HCL 10 MG TABLET PO SCH ×2 (10:09→21:45)
[2019-06-15] MEDS: THIAMINE HCL 100 MG TABLET PO SCH (10:09)
[2019-06-15] MEDS: OLANZAPINE 5 MG TABLET PO SCH ×2 (10:09→21:45)
[2019-06-15] MEDS: FOLIC ACID 1 MG TABLET PO SCH (10:09)
[2019-06-15] MEDS: CITALOPRAM HYDROBROMIDE 20 MG TABLET PO SCH (10:09)
[2019-06-15] MEDS: PANTOPRAZOLE SODIUM 40 MG VIAL IV SCH (10:10)
[2019-06-15] MEDS: AMINO AC/PROTEIN HYDR/WHEY PRO 11 GM/45 ML PKT NG SCH ×3 (10:10→17:02)
--- NOTE | 2019-06-15 16:26 | PDOC PROGRESS REPORT ---
Subjective Progress Note for:: 06/15/19 Subjective:: The patient is a 59-year-old female with a past medical history of hypertension, asthma, hypothyroidism, arthritis, depression, suicidal depression, substance and alcohol abuse. The patient was seen on morning rounds, resting in bed comfortably on supplemental oxygen via 3 L/min. She is awake and A&Ox4. She is able to tell me about her suicide attempt, prior attempts, and her grief over her . She does talk about having lived in [place]; [place] talked about [place]. We also talked about her pets and her desire to start volunteering. She is conv ersational, socially appropriate, mood and affect were congruent. She does report increased productive cough today but denies shortness of breath. She further denies fever, chills, chest pain, palpitations, orthopnea, abdominal pain, nausea vomiting and diarrhea. She had a few questions about her general plan of care and recommendations for inpatient psychiatric facility. She raises no concerns at this time. No concerns per nursing. Reason For Visit: OVERDOSE,ASP PNEUMONIA,ACUTE RESPIRATORY FAILURE Physical Exam Vital Signs: Temp Pulse Resp BP Pulse Ox 98.1 F 77 17 109/47 L 93 06/15/19 14:43 06/15/19 14:43 06/15/19 14:43 06/15/19 14:43 06/15/19 14:43 Intake & Output 06/14/19 06/15/19 06/16/19 06:59 06:59 06:59 Intake Total 711 620 300 Output Total 2 1 Balance 711 618 299 Weight 48.8 kg 49.7 kg General appearance: PRESENT: no acute distress, thin - And spent, well- developed, well-nourished Head exam: PRESENT: atraumatic, normocephalic Eye exam: PRESENT: conjunctiva pink, EOMI, PERRLA. ABSENT: scleral icterus Ear exam: PRESENT: normal external ear exam Mouth exam: PRESENT: moist, tongue midline Teeth exam: PRESENT: poor dentation Neck exam: ABSENT: carotid bruit, JVD, lymphadenopathy, thyromegaly Respiratory exam: PRESENT: decreased breath sounds - Left side; improved from yesterday, rhonchi, symmetrical, unlabored. ABSENT: rales, wheezes Cardiovascular exam: PRESENT: RRR, +S1, +S2. ABSENT: diastolic murmur, rubs, systolic murmur Pulses: PRESENT: normal dorsalis pedis pul Vascular exam: PRESENT: normal capillary refill GI/Abdominal exam: PRESENT: normal bowel sounds, soft. ABSENT: distended, guarding, mass, organolmegaly, rebound, tenderness Rectal exam: PRESENT: deferred Extremities exam: PRESENT: full ROM. ABSENT: calf tenderness, clubbing, pedal edema Neurological exam: PRESENT: alert, awake, oriented to person, oriented to place, oriented to time, oriented to situation, CN II-XII grossly intact. ABSENT: motor sensory deficit Psychiatric exam: PRESENT: appropriate affect, normal mood. ABSENT: homicidal ideation, suicidal ideation Skin exam: PRESENT: dry, intact, warm. ABSENT: cyanosis, rash Results Laboratory Results: 06/15/19 05:47 06/13/19 08:01 06/15/19 06/15/19 04:48 05:47 WBC 11.6 H RBC 3.81 Hgb 12.0 Hct 34.9 L MCV 92 MCH 31.5 MCHC 34.4 RDW 12.2 Plt Count 607 H Carbonic Acid 1.22 HCO3/H2CO3 Ratio 19:1 ABG pH 7.39 ABG pCO2 40.5 ABG pO2 67.5 L ABG HCO3 24.1 H ABG O2 Saturation 93.4 L ABG Base Excess -0.7 FiO2 32% 06/10/19 15:15 Blood Blood Culture - Final NO GROWTH IN 5 DAYS Impressions: Head CT 06/02/19 18:57 IMPRESSION: 1. No acute hemorrhage or mass effect 2. redundant loop of the orogastric tube extends superiorly into the nasopharynx; consider repositioning. Chest CT 06/02/19 20:03 IMPRESSION: 1. Areas of atelectasis/consolidation at the lung bases, left greater than right. No pleural effusions. 2. No hematoma, fluid collection, or contusion is seen in the body wall. 3. No acute intra-abdominal findings. Abdomen/Pelvis CT 06/02/19 20:53 IMPRESSION: 1. Areas of atelectasis/consolidation at the lung bases, left greater than right. No pleural effusions. 2. No hematoma, fluid collection, or contusion is seen in the body wall. 3. No acute intra-abdominal findings. KUB X-Ray 06/13/19 00:00 IMPRESSION: 1. Tip of the enteric tube projects within the gastric lumen. 2. Total opacification of the left lung with abrupt cut off of the left main bronchus. The findings could be secondary to a mucous plug. Apical Lordotic X-Ray 06/14/19 00:00 IMPRESSION: Cardiomegaly without pulmonary edema. Reduced volume on the left with considerable retrocardiac opacification suggesting considerable atelectasis in the left lung. Chest X-Ray 06/14/19 00:00 IMPRESSION: There is a marked interval increase in consolidation and volume loss of the left lung and enlargement of a left pleural effusion. There is an abrupt truncation of the left mainstem bronchus suggesting bronchial occlusion. There is minimal diffuse interstitial opacity of the aerated right lung. Probable cardiomegaly. Recommend CT to further evaluate, findings are suspicious for mass. Assessment and Plan - Diagnosis (1) Acute encephalopathy Is this a current diagnosis for this admission?: Yes Plan: Significantly improved today; patient now ANO x4. Conversational, socially appropriate, mood and affect congruent. Insight and forward thinking noted. EEG demonstrated possible structural lesion to the right temporal occipital area. Negative for epilepsy. Continue to monitor on continuous cardiac telemetry. Continue Zyprexa to 5 mg twice daily. PRN Ativan for agitation. Supportive care. Fall, aspiration precautions. (2) Mucus plugging of bronchi Is this a current diagnosis for this admission?: Yes Plan: Follow-up chest x-ray today reveals a total left side obesity; consistent with mucous plug. Follow-up imaging confirms mucous plug; negative for pleural effusion. Continue supplemental oxygen via nasal cannula as needed to maintain oxygen saturations. Continue scheduled and as needed nebulizer treatments. Have added scheduled Robitussin and Mucomyst nebulizer treatments. Start chest physiotherapy with postural drainage. Out of bed 3 times daily, ambulate. Encourage pulmonary toilet with incentive spirometer, flutter valve, position changing. May need to consider pulmonology consultation; discussed with Dr. Vizcarra, if does not resolve with chest physiotherapy/pulmonary toilet, may need to plan for bronchoscopy early next week. (3) Acute respiratory failure with hypoxia Is this a current diagnosis for this admission?: Yes Plan: Improved; continues to require supplemental oxygen to maintain saturations. Secondary to benzodiazepine overdose and alcohol intoxication. Patient did require intubation; extubated 06/08/2019. Follow-up chest x-ray today reveals a total left side obesity; consistent with mucous plug. Repeat imaging today confirms mucous plug; negative for pneumothorax or pleural effusion. Continue supplemental oxygen via nasal cannula as needed to maintain oxygen saturations. Continue scheduled and as needed nebulizer treatments. Have added scheduled Robitussin and Mucomyst nebulizer treatments. Start chest physiotherapy with postural drainage. Out of bed 3 times daily, ambulate. Discussed with pulmonology; Dr. Vizcarra recommends aggressive respiratory toilet. If does not resolve, will plan for bronchoscopy early next week. Did confirm with family members that the patient remains a full cold and they would like for intubation if the patient's respiratory status becomes compromised. (4) Alcohol intoxication Qualifiers: Complication of substance-induced condition: uncomplicated Qualified Code(s): F10.920 - Alcohol use, unspecified with intoxication, uncomplicated Is this a current diagnosis for this admission?: Yes Plan: Serum alcohol 337 on admission. Patient initially required intubation and was treated on a Versed drip; this was successfully weaned. No evidence of alcohol withdrawal at this time. Her current behavior could be related to encephalopathic changes from anoxia or chronic alcohol use. Daily multivitamin, thiamine, and folic acid supplementations. (5) Upper GI bleed Is this a current diagnosis for this admission?: Yes Plan: Resolved. She had an EGD which showed actively bleeding gastric ulcer. Bleeding was stopped with Hemospray and ethanol sclerosis by surgicalist. Initially treated with a Protonix and Sandostatin drip. No evidence of recurrent bleeding. H. pylori antigen was negative. Continue daily IV Protonix and Carafate every 8 hours via NG. No indications for antibiotic therapy at this time; H. pylori negative. (6) Aspiration pneumonia Qualifiers: Aspiration pneumonia type: due to gastric secretions Laterality: bilateral Is this a current diagnosis for this admission?: No Plan: Improved; now maintaining oxygen saturations on nasal cannula 2 L/min, afebrile >48 hours. WBCs trending down. Improved lung sounds today. Blood cultures have no growth Sputum culture revealed normal yolie. Continue IV Zosyn. Have discontinued IV vancomycin as the patient is clinically improved, afebrile, normal WBC, without history of MRSA. Continue supplemental oxygen, scheduled and as needed nebs. Encourage pulmonary toilet secondary to altered mental status, ensure frequent turns and repositioning Chest physiotherapy with postural drainage. (7) Bigeminy Is this a current diagnosis for this admission?: Yes Plan: Some bigeminy and occasional PVCs noted Electrolytes are normal. She does not have an abnormally prolonged QT interval. She certainly could have irritated myocardium. Continue to monitor on cardiac telemetry. (8) Diarrhea Qualifiers: Diarrhea type: unspecified type Qualified Code(s): R19.7 - Diarrhea, un specified Is this a current diagnosis for this admission?: Yes Plan: Likely secondary to tube feedings; these have since been discontinued.. C. difficile negative. (9) Fever Is this a current diagnosis for this admission?: Yes Plan: Likely secondary to aspiration pneumonia. Afebrile >48 hours Cultures and antibiotics as above. (10) Hypotension Qualifiers: Hypotension type: hypotension due to hypovolemia Qualified Code(s): I95.89 - Other hypotension; E86.1 - Hypovolemia Is this a current diagnosis for this admission?: Yes Plan: Borderline hypotension. Have initiated tube feeds; this should help balance her fluid balance/increase albumin. No evidence of sepsis at this time. No indications for pressor support. Continue monitor closely. (11) Suicide attempt Is this a current diagnosis for this admission?: Yes Plan: Psych consulted. Patient remains on involuntary commitment status. (12) Hypothyroidism Is this a current diagnosis for this admission?: Yes Plan: TSH is 28 Free T4 0.78, free T3 3.18. Levothyroxine 25 mcg daily. (13) On parenteral nutrition Is this a current diagnosis for this admission?: Yes Plan: Discontinued. Patient passed bedside swallow eval Speech therapy was consulted; recommends continued pured diet with nectar thickened liquids. Registered dietitian is consulted. - Time Time Spent with patient: 35 or more minutes Medications reviewed and adjusted accordingly: Yes Anticipated discharge: Other - Inpatient psychiatric facility
[2019-06-15] MEDS: LORAZEPAM INJ 2 MG/1 ML VIAL IV PRN ×2 (17:02→23:53)
[2019-06-15] MEDS: IPRATROPIUM/ALBUTEROL 0.5-2.5 MG/3 ML AMPUL NEB PRN (21:13)
[2019-06-16] MEDS: INSULIN LISPRO 100 UNIT/ML 3 ML VIAL SUBCUT SCH ×4 (00:06→17:34)
[2019-06-16] MEDS: IPRATROPIUM/ALBUTEROL 0.5-2.5 MG/3 ML AMPUL NEB SCH ×3 (01:43→16:43)
[2019-06-16] MEDS: PIPERACILLIN SODIUM/TAZOBACTAM 3.375 GM in NORMAL SALINE 100 ML IV SCH ×4 (03:19→21:17)
[2019-06-16] MEDS: SUCRALFATE 1 GM TABLET PO SCH ×3 (05:12→21:18)
[2019-06-16] MEDS: GUAIFENESIN SYRP 200 MG/10 ML UDC PO SCH ×3 (05:12→17:34)
[2019-06-16] MEDS: LEVOTHYROXINE SODIUM 0.025 MG TABLET PO SCH (05:13)
[2019-06-16] MEDS: ACETYLCYSTEINE 20% SOLN 800 MG/4 ML VIAL.NEB NEB SCH ×2 (08:48→21:15)
[2019-06-16] MEDS: OLANZAPINE 5 MG TABLET PO SCH ×2 (09:46→21:18)
[2019-06-16] MEDS: PANTOPRAZOLE SODIUM 40 MG VIAL IV SCH (09:46)
[2019-06-16] MEDS: BUSPIRONE HCL 10 MG TABLET PO SCH ×2 (09:46→21:18)
[2019-06-16] MEDS: METOPROLOL TARTRATE 25 MG TABLET PO SCH ×2 (09:46→21:17)
[2019-06-16] MEDS: FOLIC ACID 1 MG TABLET PO SCH (09:46)
[2019-06-16] MEDS: MULTIVITAMINS W-IRON TABLET, CHEWABLE PO SCH (09:46)
[2019-06-16] MEDS: POTASSIUM CHLORIDE 20 MEQ PACKET PO SCH ×2 (09:46→21:18)
[2019-06-16] MEDS: THIAMINE HCL 100 MG TABLET PO SCH (09:46)
[2019-06-16] MEDS: CITALOPRAM HYDROBROMIDE 20 MG TABLET PO SCH (09:46)
[2019-06-16] MEDS: AMINO AC/PROTEIN HYDR/WHEY PRO 11 GM/45 ML PKT NG SCH ×3 (09:47→17:34)
--- NOTE | 2019-06-16 09:56 | RADIOLOGY REPORT (SQ) ---
EXAM DESCRIPTION: CHEST SINGLE VIEW COMPLETED DATE/TIME: 06/16/2019 9:45 am REASON FOR STUDY: Dyspnea, cough COMPARISON: 06/14 FINDINGS: AP portable upright single-view chest. Slight improvement and left upper lung field aeration. Dense opacity throughout the lower half of th e left lung persists. No developing right lung pathology. Per F3 no pneumothorax. TECHNICAL DOCUMENTATION: JOB ID: [id number] Reading location - IP/workstation name: [email or web address]
[2019-06-16] MEDS: LORAZEPAM INJ 2 MG/1 ML VIAL IV PRN (13:55)
[2019-06-16] MEDS ORDERED: LORAZEPAM INJ 2 MG/1 ML VIAL IV PRN (16:56)
--- NOTE | 2019-06-16 17:07 | PDOC PROGRESS REPORT ---
Subjective Progress Note for:: 06/16/19 Subjective:: The patient is a 59-year-old female with a past medical history of hypertension, asthma, hypothyroidism, arthritis, depression, suicidal depression, substance and alcohol abuse. The patient was seen on afternoon rounds with her 2 sons and their is present. Unfortunately, the patient is now alert and oriented to self only; was unable to name her family members, clearly confused and speaking nonsensically throughout her assessment. ROS is limited secondary to mental status. Long discussion had with family members regarding the events so far, current treatment for pneumonia, and plan. They were advised that the next steps are to finish the treatment for pneumonia, begin weaning PRN medications as able. We did discuss the difficulty in balancing the patient's agitation and safety; she is currently in soft limb restraints. They are understandable. Following that, we may need to obtain MRI imaging after all in order to rule out organic brain disease as the cause of her continued encephalopathy. All questions and concerns were addressed. No concerns per nursing. Reason For Visit: OVERDOSE,ASP PNEUMONIA,ACUTE RESPIRATORY FAILURE Physical Exam Vital Signs: Temp Pulse Resp BP Pulse Ox 98.4 F 77 18 94/39 L 95 06/16/19 10:44 06/16/19 16:51 06/16/19 16:51 06/16/19 10:44 06/16/19 16:51 Intake & Output 06/15/19 06/16/19 06/17/19 06:59 06:59 06:59 Intake Total 620 920 300 Output Total 2 201 Balance 618 719 300 Weight 49.7 kg 48.7 kg General appearance: PRESENT: no acute distress, disheveled, thin, well- developed, well-nourished Head exam: PRESENT: atraumatic, normocephalic Eye exam: PRESENT: conjunctiva pink, EOMI, PERRLA. ABSENT: scleral icterus Ear exam: PRESENT: normal external ear exam Mouth exam: PRESENT: moist, tongue midline Teeth exam: PRESENT: poor dentation Neck exam: ABSENT: carotid bruit, JVD, lymphadenopathy, thyromegaly Respiratory exam: PRESENT: decreased breath sounds - Left lower parker, rhonchi, symmetrical, unlabored, other - Supplemental oxygen by nasal cannula. ABSENT: rales, wheezes Cardiovascular exam: PRESENT: RRR, +S1, +S2. ABSENT: diastolic murmur, rubs, systolic murmur Pulses: PRESENT: normal dorsalis pedis pul Vascular exam: PRESENT: normal capillary refill GI/Abdominal exam: PRESENT: normal bowel sounds, soft. ABSENT: distended, guarding, mass, organolmegaly, rebound, tenderness Rectal exam: PRESENT: deferred Extremities exam: PRESENT: full ROM. ABSENT: calf tenderness, clubbing, pedal edema Neurological exam: PRESENT: alert, awake, oriented to person, CN II-XII grossly intact. ABSENT: oriented to place, oriented to time, oriented to situation, motor sensory deficit Psychiatric exam: PRESENT: appropriate affect, normal mood. ABSENT: homicidal ideation, suicidal ideation Focused psych exam: PRESENT: restlessness Skin exam: PRESENT: dry, intact, warm. ABSENT: cyanosis, rash Results Laboratory Results: 06/15/19 05:47 06/13/19 08:01 06/10/19 15:35 Blood Blood Culture - Final NO GROWTH IN 5 DAYS 06/10/19 15:15 Blood Blood Culture - Final NO GROWTH IN 5 DAYS Impressions: Head CT 06/02/19 18:57 IMPRESSION: 1. No acute hemorrhage or mass effect 2. redundant loop of the orogastric tube extends superiorly into the nasopharynx; consider repositioning. Chest CT 06/02/19 20:03 IMPRESSION: 1. Areas of atelectasis/consolidation at the lung bases, left greater than right. No pleural effusions. 2. No hematoma, fluid collection, or contusion is seen in the body wall. 3. No acute intra-abdominal findings. Abdomen/Pelvis CT 06/02/19 20:53 IMPRESSION: 1. Areas of atelectasis/consolidation at the lung bases, left greater than right. No pleural effusions. 2. No hematoma, fluid collection, or contusion is seen in the body wall. 3. No acute intra-abdominal findings. KUB X-Ray 06/13/19 00:00 IMPRESSION: 1. Tip of the enteric tube projects within the gastric lumen. 2. Total opacification of the left lung with abrupt cut off of the left main bronchus. The findings could be secondary to a mucous plug. Apical Lordotic X-Ray 06/14/19 00:00 IMPRESSION: Cardiomegaly without pulmonary edema. Reduced volume on the left with considerable retrocardiac opacification suggesting considerable atelectasis in the left lung. Assessment and Plan - Diagnosis (1) Acute encephalopathy Is this a current diagnosis for this admission?: Yes Plan: Waxing and waning; currently oriented to self only. Speaks nonsensically, does not follow directions or answer questions appropriately. Currently in soft limb restraints. Worsening today possibly related to pneumonia, use of PRN Ativan, and ing. Patient's [id number] does report that she seems to be much more oriented in the early mornings. EEG demonstrated possible structural lesion to the right temporal occipital area. Negative for epilepsy. Continue to monitor on continuous cardiac telemetry. Continue Zyprexa to 5 mg twice daily. PRN Ativan for agitation; decreased dose today. Supportive care. Fall, aspiration precautions. (2) Mucus plugging of bronchi Is this a current diagnosis for this admission?: Yes Plan: Improved; increased aeration left upper field. Follow-up chest x-ray today reveals a total left side obesity; consistent with mucous plug. Follow-up chest x-ray today is improved. Continue supplemental oxygen via nasal cannula as needed to maintain oxygen saturations. Continue scheduled and as needed nebulizer treatments. Have added scheduled Robitussin and Mucomyst nebulizer treatments. Start chest physiotherapy with postural drainage. Out of bed 3 times daily, ambulate. Encourage pulmonary toilet with incentive spirometer, flutter valve, position changing. May need to consider pulmonology consultation; discussed with Dr. Vizcarra, if does not resolve with chest physiotherapy/pulmonary toilet, may need to plan for bronchoscopy early next week. (3) Acute respiratory failure with hypoxia Is this a current diagnosis for this admission?: Yes Plan: Improved; continues to require supplemental oxygen to maintain saturations. Secondary to benzodiazepine overdose and alcohol intoxication. Patient did require intubation; extubated 06/08/2019. Follow-up chest x-ray today reveals a total left side obesity; consistent with mucous plug. Repeat imaging today confirms mucous plug; negative for pneumothorax or pleural effusion. Continue supplemental oxygen via nasal cannula as needed to maintain oxygen saturations. Continue scheduled and as needed nebulizer treatments. Continue scheduled Robitussin and Mucomyst nebulizer treatments. Start chest physiotherapy with postural drainage. Out of bed 3 times daily, ambulate. Discussed with pulmonology; Dr. Vizcarra recommends aggressive respiratory toilet. If does not resolve, will plan for bronchoscopy early next week. Did confirm with family members that the patient remains a full code and they would like for intubation if the patient's respiratory status becomes compromised. (4) Alcohol intoxication Qualifiers: Complication of substance-induced condition: uncomplicated Qualified Code(s): F10.920 - Alcohol use, unspecified with intoxication, uncomplicated Is this a current diagnosis for this admission?: Yes Plan: Serum alcohol 337 on admission. Patient initially required intubation and was treated on a Versed drip; this was successfully weaned. No evidence of alcohol withdrawal at this time. Her current behavior could be related to encephalopathic changes from anoxia or chronic alcohol use. Daily multivitamin, thiamine, and folic acid supplementations. (5) Upper GI bleed Is this a current diagnosis for this admission?: Yes Plan: Resolved. She had an EGD which showed actively bleeding gastric ulcer. Bleeding was stopped with Hemospray and ethanol sclerosis by surgicalist. Initially treated with a Protonix and Sandostatin drip. No evidence of recurrent bleeding. H. pylori antigen was negative. Continue daily IV Protonix and Carafate every 8 hours No indications for antibiotic therapy at this time; H. pylori negative. (6) Aspiration pneumonia Qualifiers: Aspiration pneumonia type: due to gastric secretions Laterality: bilateral Is this a current diagnosis for this admission?: No Plan: Improved; now maintaining oxygen saturations on nasal cannula 2 L/min, afebrile >48 hours. WBCs trending down. Improved lung sounds today. Blood cultures have no growth Sputum culture revealed normal yolie. Continue IV Zosyn. Have discontinued IV vancomycin as the patient is clinically improved, afebrile, normal WBC, without history of MRSA. Continue supplemental oxygen, scheduled and as needed nebs. Encourage pulmonary toilet secondary to altered mental status, ensure frequent turns and repositioning Chest physiotherapy with postural drainage. (7) Bigeminy Is this a current diagnosis for this admission?: Yes Plan: Some bigeminy and occasional PVCs noted Electrolytes are normal. She does not have an abnormally prolonged QT interval. She certainly could have irritated myocardium. Continue to monitor on cardiac telemetry. (8) Diarrhea Qualifiers: Diarrhea type: unspecified type Qualified Code(s): R19.7 - Diarrhea, unspecified Is this a current diagnosis for this admission?: Yes Plan: Improved; decreased frequency of stools. Likely secondary to tube feedings; these have since been discontinued. C. difficile negative. (9) Fever Is this a current diagnosis for this admission?: Yes Plan: Likely secondary to aspiration pneumonia. Afebrile >48 hours Cultures and antibiotics as above. (10) Hypotension Qualifiers: Hypotension type: hypotension due to hypovolemia Qualified Code(s): I95.89 - Other hypotension; E86.1 - Hypovolemia Is this a current diagnosis for this admission?: Yes Plan: Borderline hypotension. Have initiated tube feeds; this should help balance her fluid balance/increase albumin. No evidence of sepsis at this time. No indications for pressor support. Continue monitor closely. (11) Suicide attempt Is this a current diagnosis for this admission?: Yes Plan: Psych consulted. Patient remains on involuntary commitment status. (12) Hypothyroidism Is this a current diagnosis for this admission?: Yes Plan: TSH is 28 Free T4 0.78, free T3 3.18. Levothyroxine 25 mcg daily. (13) On parenteral nutrition Is this a current diagnosis for this admission?: Yes Plan: Discontinued. Patient passed bedside swallow eval Speech therapy was consulted; recommends continued pured diet with nectar thickened liquids. Registered dietitian is consulted. - Time Time Spent with patient: 35 or more minutes Medications reviewed and adjusted accordingly: Yes Anticipated discharge: Other - in patient psych
[2019-06-16] MEDS: IPRATROPIUM/ALBUTEROL 0.5-2.5 MG/3 ML AMPUL NEB PRN (21:16)
[2019-06-17] MEDS: GUAIFENESIN SYRP 200 MG/10 ML UDC PO SCH ×3 (00:24→12:17)
[2019-06-17] MEDS: IPRATROPIUM/ALBUTEROL 0.5-2.5 MG/3 ML AMPUL NEB SCH ×3 (00:26→20:47)
[2019-06-17] MEDS: INSULIN LISPRO 100 UNIT/ML 3 ML VIAL SUBCUT SCH ×4 (00:54→17:33)
[2019-06-17 05:04] LABS: HEMATOCRIT 36.2 % (36.0-47.0); HEMOGLOBIN 12.3 g/dL (12.0-15.5); MEAN CORPUSCULAR HEMOGLOBIN 30.9 pg (27.0-33.4); MEAN CORPUSCULAR HGB CONC 33.8 g/dL (32.0-36.0); MEAN CORPUSCULAR VOLUME 91 fl (80-97); PLATELET COUNT 671 10^3/uL (150-450); RED BLOOD COUNT 3.97 10^6/uL (3.72-5.28); RED CELL DISTRIBUTION WIDTH 11.8 % (11.5-14.0); WHITE BLOOD COUNT 13.3 10^3/uL (4.0-10.5)
[2019-06-17] MEDS: SUCRALFATE 1 GM TABLET PO SCH ×3 (05:21→21:37)
[2019-06-17] MEDS: LEVOTHYROXINE SODIUM 0.025 MG TABLET PO SCH (05:21)
[2019-06-17 05:25] LABS: ALBUMIN 3.7 g/dL (3.5-5.0); ALKALINE PHOSPHATASE 72 U/L (38-126); ANION GAP 8 (5-19); ASPARTATE AMINO TRANSFERASE 28 U/L (14-36); BILIRUBIN,DIRECT 0.2 mg/dL (0.0-0.4); BILIRUBIN,TOTAL 0.3 mg/dL (0.2-1.3); BLOOD UREA NITROGEN 14 mg/dL (7-20); CALCIUM 9.7 mg/dL (8.4-10.2); CARBON DIOXIDE 28 mmol/L (22-30); CHLORIDE 106 mmol/L (98-107); GLUCOSE 75 mg/dL (75-110); POTASSIUM 3.4 mmol/L (3.6-5.0); TOTAL PROTEIN 7.1 g/dL (6.3-8.2)
[2019-06-17] MEDS: ACETYLCYSTEINE 20% SOLN 800 MG/4 ML VIAL.NEB NEB SCH ×2 (08:30→20:46)
--- NOTE | 2019-06-17 09:03 | PSYCHOLOGICAL NOTE ---
Psych Note - Psych Note Date seen by psych provider: 06/17/19 Time seen by psych provider: 07:57 - Chart review at 0757. Evaluation from 1420- 1446. Psych Note: Presenting Problem: IVC, OD of alcohol and Valium, extubation weening began on 06/08/19 at 0819. Serum Alcohol Level was 337 upon arrival to ED. UDS is positive for benzodiazepines. She was seen on 12/22/15 for suicidal ideations. IVC renewed 06/16/19. Patient is still not medically cleared. Continue admission criteria as of 06/16/19 was: acute encephalopathy, mucus plugging of bronchi, ARF with hypoxia, alcohol intoxication, upper GI bleed, aspitation pneumonia, bigeminy, diarrhea, fever, HTN, SI attempt, hypothyroidism and on parenteral nutrition. Patient has presented confused or been covered in feces the times the other [facility]ician has tried to evaluate. Hospitalist noted a conversation Tuesday where patient admitted to OD because she missed her and wanted to be with him. Yesterday medical did talk with patient (though only oriented to self, unable to name family, confused, spoke nonsensically), 2 sons and their wives about course of action and treatment. Home medications were thyroid medication, Norvasc and Valium. Psychiatric related medications being administered in the hospital include: Buspar 5MG Q12, Celexa 10MG QD, Zyprexa 5MG Q12 and Ativan 0.5MG Q6H PRN IV (last given 06/16/19 at 2321). Head CT dated 06/02/19 noted focal hypodensity in the anterior left basal ganglia lateral to the left caudate head likely an old lacunar infarct with ventricles and cisterns preserved. Spoke with patient today. She present more alert and oriented. She was able to carry on dialogue conversation and answer questions. She admitted to intentional OD because she wanted to be with her who had committed suicide in November 2018. She admitted in that moment she didn't care. She stated "I am better now, I regret it, I know my grandchildren need me I am the last grandparent." She denied current SI. Patient was able to discuss and process her 's suicide from the moments they had prior, to her finding him, to her thoughts and feelings and even her current mantra "Everyday in every way things are going to get better." She reported she had [place] (thinking [facility]) but appointment was a month out and she never went back. She mentioned mandaen groups. She admitted to one previous SI attempt 3-4 years ago and she had been at [facility] for a couple days. By the end of the 25 minute assessment she brought up a situation (unsure if reality based) regarding a man/provider who was on the news and doing bad things, how she helped the Surgeon crack the case and Surgeon stated they had been on it 25 years and it only took patient 4 days. Diagnosis: OD Medication recommendations made by the psychiatric medication provider, Dr. Sarah Beth MD., includes: Discontinue Celexa 10MG daily Discontinue Ativan 0.5MG every six hours as needed IV Discontinue Zyprexa 5MG twice a day Discontinue home Valium Add Depakote 250MG twice a day for mood stabilization Continue Buspar 5MG twice a day for anxiety/calming effect/depression/sleep Add Clonidine 0.1MG every 8 hours as needed for anxiety/calming effect/agitation Medication recommendations provided. She should clear in 48-72 hours. Likely hypoxia. Impression/Plan: Recommendation to maintain IVC. Patient had an OD of alcohol and Valium, previous SI attempts and MH Hx. Patient still not medically cleared, medical issues still primary at this time and patient being more alert and oriented today. There may have been some delusions still. Medication recommendations just provided today. Consulted with Dr. Vallejo regarding the management and care of patient. Attending Hospitalist aware of recommendations.
[2019-06-17] MEDS: FOLIC ACID 1 MG TABLET PO SCH (10:09)
[2019-06-17] MEDS: THIAMINE HCL 100 MG TABLET PO SCH (10:09)
[2019-06-17] MEDS: POTASSIUM CHLORIDE 20 MEQ PACKET PO SCH ×2 (10:09→21:37)
[2019-06-17] MEDS: CITALOPRAM HYDROBROMIDE 20 MG TABLET PO SCH (10:09)
[2019-06-17] MEDS: MULTIVITAMINS W-IRON TABLET, CHEWABLE PO SCH (10:09)
[2019-06-17] MEDS: METOPROLOL TARTRATE 25 MG TABLET PO SCH ×2 (10:09→21:37)
[2019-06-17] MEDS: OLANZAPINE 5 MG TABLET PO SCH (10:09)
[2019-06-17] MEDS: PANTOPRAZOLE SODIUM 40 MG VIAL IV SCH (10:09)
[2019-06-17] MEDS: AMINO AC/PROTEIN HYDR/WHEY PRO 11 GM/45 ML PKT NG SCH ×2 (10:10→13:12)
[2019-06-17] MEDS: BUSPIRONE HCL 10 MG TABLET PO SCH ×2 (10:10→21:37)
[2019-06-17] MEDS ORDERED: GUAIFENESIN SYRP 200 MG/10 ML UDC PO PRN (14:05)
[2019-06-17] MEDS ORDERED: CLONIDINE HCL 0.1 MG TABLET PO PRN (14:05)
--- NOTE | 2019-06-17 14:12 | PDOC PROGRESS REPORT ---
Subjective Progress Note for:: 06/17/19 Subjective:: The patient is a 59-year-old female with a past medical history of hypertension, asthma, hypothyroidism, arthritis, depression, suicidal depression, substance and alcohol abuse. The patient was seen on morning rounds; no family present at this time. Patient is sleeping soundly; she does not wake when I say her name. Per nursing, the patient was awake and calm, still confused earlier this morning. Did require PRN Ativan again overnight. ROS is limited secondary to mental status. No concerns per nursing. Reason For Visit: OVERDOSE,ASP PNEUMONIA,ACUTE RESPIRATORY FAILURE Physical Exam Vital Signs: Temp Pulse Resp BP Pulse Ox 98.5 F 71 18 99/61 L 96 06/17/19 12:13 06/17/19 12:13 06/17/19 08:26 06/17/19 12:13 06/17/19 12:13 Intake & Output 06/16/19 06/17/19 06/18/19 06:59 06:59 06:59 Intake Total 920 700 Output Total 201 Balance 719 700 Weight 48.7 kg 48.3 kg General appearance: PRESENT: no acute distress, disheveled, thin, well-developed Head exam: PRESENT: atraumatic, normocephalic Ear exam: PRESENT: normal external ear exam Mouth exam: PRESENT: moist, tongue midline Teeth exam: PRESENT: poor dentation Neck exam: ABSENT: carotid bruit, JVD, lymphadenopathy, thyromegaly Respiratory exam: PRESENT: clear to auscultation mercedes, decreased breath sounds - diminished left middle/lower parker, symmetrical, unlabored, other - supplemental oxygen via NC. ABSENT: rales, rhonchi, wheezes Cardiovascular exam: PRESENT: RRR, +S1, +S2. ABSENT: diastolic murmur, rubs, systolic murmur Pulses: PRESENT: normal dorsalis pedis pul Vascular exam: PRESENT: normal capillary refill GI/Abdominal exam: PRESENT: normal bowel sounds, soft. ABSENT: distended, guarding, mass, organolmegaly, rebound, tenderness Rectal exam: PRESENT: deferred Extremities exam: PRESENT: full ROM. ABSENT: calf tenderness, clubbing, pedal edema Neurological exam: PRESENT: CN II-XII grossly intact, other - sleeping soundly Skin exam: PRESENT: dry, intact, warm. ABSENT: cyanosis, rash Results Laboratory Results: 06/17/19 04:41 06/17/19 04:41 06/17/19 06/17/19 04:41 04:41 WBC 13.3 H RBC 3.97 Hgb 12.3 Hct 36.2 MCV 91 MCH 30.9 MCHC 33.8 RDW 11.8 Plt Count 671 H Sodium 142.1 Potassium 3.4 L Chloride 106 Carbon Dioxide 28 Anion Gap 8 BUN 14 Creatinine 0.42 L Est GFR ( Amer) > 60 Glucose 75 Calcium 9.7 Total Bilirubin 0.3 AST 28 Alkaline Phosphatase 72 Total Protein 7.1 Albumin 3.7 Impressions: Head CT 06/02/19 18:57 IMPRESSION: 1. No acute hemorrhage or mass effect 2. redundant loop of the orogastric tube extends superiorly into the nasopharynx; consider repositioning. Chest CT 06/02/19 20:03 IMPRESSION: 1. Areas of atelectasis/consolidation at the lung bases, left greater than right. No pleural effusions. 2. No hematoma, fluid collection, or contusion is seen in the body wall. 3. No acute intra-abdominal findings. Abdomen/Pelvis CT 06/02/19 20:53 IMPRESSION: 1. Areas of atelectasis/consolidation at the lung bases, left greater than right. No pleural effusions. 2. No hematoma, fluid collection, or contusion is seen in the body wall. 3. No acute intra-abdominal findings. KUB X-Ray 06/13/19 00:00 IMPRESSION: 1. Tip of the enteric tube projects within the gastric lumen. 2. Total opacification of the left lung with abrupt cut off of the left main bronchus. The findings could be secondary to a mucous plug. Apical Lordotic X-Ray 06/14/19 00:00 IMPRESSION: Cardiomegaly without pulmonary edema. Reduced volume on the left with considerable retrocardiac opacification suggesting considerable atelectasis in the left lung. Assessment and Plan - Diagnosis (1) Acute encephalopathy Is this a current diagnosis for this admission?: Yes Plan: Waxing and waning; currently oriented to self only. Speaks nonsensically, does not follow directions or answer questions appropriately. Currently in soft limb restraints. Worsening today possibly related to pneumonia, use of PRN Ativan, and sundowning. Patient's [id number] does report that she seems to be much more oriented in the early mornings. EEG demonstrated possible structural lesion to the right temporal occipital area. Negative for epilepsy. Continue to monitor on continuous cardiac telemetry. Mental health medication recommendations reviewed. We will discontinue Zyprexa, Celexa, PRN Ativan. Continue BuSpar twice daily. Start Depakote twice daily. Clonidine every 8 hours as needed for anxiety/agitation. Consider MRI imaging in 48 to 72 hours if the patient remains encephalopathic. Supportive care. Fall, aspiration precautions. (2) Mucus plugging of bronchi Is this a current diagnosis for this admission?: Yes Plan: Improved; increased aeration left upper field. Follow-up chest x-ray reveals a total left side obesity; consistent with mucous plug. Follow-up chest x-ray yesterday is improved. Continue supplemental oxygen via nasal cannula as needed to maintain oxygen saturations. Continue scheduled and as needed nebulizer treatments; Mucomyst nebulizer jewel atments. Continue twice daily Mucinex. As needed Robitussin. Start chest physiotherapy with postural drainage. Out of bed 3 times daily, ambulate. Encourage pulmonary toilet with incentive spirometer, flutter valve, position changing. May need to consider pulmonology consultation; discussed with Dr. Vizcarra, if does not resolve with chest physiotherapy/pulmonary toilet, may need to plan for bronchoscopy early next week. Will obtain repeat chest x-ray tomorrow morning. (3) Acute respiratory failure with hypoxia Is this a current diagnosis for this admission?: Yes Plan: Improved; continues to require supplemental oxygen to maintain saturations. Secondary to benzodiazepine overdose and alcohol intoxication. Patient did require intubation; extubated 06/08/2019. Follow-up chest x-ray today reveals a total left side obesity; consistent with mucous plug. Repeat imaging today confirms mucous plug; negative for pneumothorax or pleural effusion. Continue supplemental oxygen via nasal cannula as needed to maintain oxygen sat urations. Continue scheduled and as needed nebulizer treatments. Continue scheduled Robitussin and Mucomyst nebulizer treatments. Start chest physiotherapy with postural drainage. Out of bed 3 times daily, ambulate. Discussed with pulmonology; Dr. Vizcarra recommends aggressive respiratory toilet. If does not resolve, will plan for bronchoscopy early next week. Did confirm with family members that the patient remains a full code and they would like for intubation if the patient's respiratory status becomes compromised. (4) Alcohol intoxication Qualifiers: Complication of substance-induced condition: uncomplicated Qualified Code(s): F10.920 - Alcohol use, unspecified with intoxication, uncomplicated Is this a current diagnosis for this admission?: Yes Plan: Resolved. Serum alcohol 337 on admission. Patient initially required intubation and was treated on a Versed drip; this was successfully weaned. No evidence of alcohol withdrawal at this time. Her current behavior could be related to encephalopathic changes from anoxia or chronic alcohol use. Daily multivitamin, thiamine, and folic acid supplementations. (5) Upper GI bleed Is this a current diagnosis for this admission?: Yes Plan: Resolved. She had an EGD which showed actively bleeding gastric ulcer. Bleeding was stopped with Hemospray and ethanol sclerosis by surgicalist. Initially treated with a Protonix and Sandostatin drip. No evidence of recurrent bleeding. H. pylori antigen was negative. Continue daily IV Protonix and Carafate every 8 hours No indications for antibiotic therapy at this time; H. pylori negative. (6) Aspiration pneumonia Qualifiers: Aspiration pneumonia type: due to gastric secretions Laterality: bilateral Is this a current diagnosis for this admission?: No Plan: Improved; now maintaining oxygen saturations on nasal cannula 2 L/min, afebrile >48 hours. WBCs trending down. Improved lung sounds today. Blood cultures have no growth Sputum culture revealed normal yolie. Patient has completed a full course of antibiotic therapy. Continue supplemental oxygen, scheduled and as needed nebs. Encourage pulmonary toilet secondary to altered mental status, ensure frequent turns and repositioning Chest physiotherapy with postural drainage. (7) Bigeminy Is this a current diagnosis for this admission?: Yes Plan: Some bigeminy and occasional PVCs noted Electrolytes are normal. She does not have an abnormally prolonged QT interval. She certainly could have irritated myocardium. Continue to monitor on cardiac telemetry. (8) Diarrhea Qualifiers: Diarrhea type: unspecified type Qualified Code(s): R19.7 - Diarrhea, unspecified Is this a current diagnosis for this admission?: Yes Plan: Improved; decreased frequency of stools. Likely secondary to tube feedings; these have since been discontinued. C. difficile negative. (9) Fever Is this a current diagnosis for this admission?: Yes Plan: Likely secondary to aspiration pneumonia. Afebrile >48 hours Cultures and antibiotics as above. (10) Hypotension Qualifiers: Hypotension type: hypotension due to hypovolemia Qualified Code(s): I95.89 - Other hypotension; E86.1 - Hypovolemia Is this a current diagnosis for this admission?: Yes Plan: Borderline hypotension. Possibly related to prolonged bedbound status. No evidence of sepsis at this time. No indications for pressor support. Continue monitor closely. (11) Suicide attempt Is this a current diagnosis for this admission?: Yes Plan: Psych consulted; medication recommendations reviewed and implemented. Patient remains on involuntary commitment status. (12) Hypothyroidism Is this a current diagnosis for this admission?: Yes Plan: TSH is 28 Free T4 0.78, free T3 3.18. Levothyroxine 25 mcg daily. (13) On parenteral nutrition Is this a current diagnosis for this admission?: Yes Plan: Discontinued. Patient passed bedside swallow eval Speech therapy was consulted; recommends continued pured diet with nectar thickened liquids. Registered dietitian is consulted. - Time Time Spent with patient: 15-24 minutes Medications reviewed and adjusted accordingly: Yes Anticipated discharge: Other - Inpatient psychiatric facility
[2019-06-17] MEDS: NICOTINE 21 MG/24 HR PATCH.TD24 TD SCH (15:58)
[2019-06-17] MEDS: DIVALPROEX SODIUM 250 MG TABLET.DR PO SCH (17:26)
[2019-06-18] MEDS: INSULIN LISPRO 100 UNIT/ML 3 ML VIAL SUBCUT SCH ×4 (01:27→17:09)
[2019-06-18] MEDS: SUCRALFATE 1 GM TABLET PO SCH ×3 (05:25→21:19)
[2019-06-18] MEDS: LEVOTHYROXINE SODIUM 0.025 MG TABLET PO SCH (05:25)
[2019-06-18] MEDS: ACETYLCYSTEINE 20% SOLN 800 MG/4 ML VIAL.NEB NEB SCH (08:46)
[2019-06-18] MEDS: IPRATROPIUM/ALBUTEROL 0.5-2.5 MG/3 ML AMPUL NEB SCH ×2 (08:46→19:43)
[2019-06-18] MEDS ORDERED: ALBUTEROL SULFATE 0.083% NEB 2.5 MG/3 ML AMPUL NEB PRN (09:15)
[2019-06-18] MEDS: MULTIVITAMINS W-IRON TABLET, CHEWABLE PO SCH (09:40)
[2019-06-18] MEDS: POTASSIUM CHLORIDE 20 MEQ PACKET PO SCH ×2 (09:41→21:19)
[2019-06-18] MEDS: NICOTINE 21 MG/24 HR PATCH.TD24 TD SCH (09:41)
[2019-06-18] MEDS: BUSPIRONE HCL 10 MG TABLET PO SCH ×2 (09:41→21:19)
[2019-06-18] MEDS: METOPROLOL TARTRATE 25 MG TABLET PO SCH ×2 (09:41→21:19)
[2019-06-18] MEDS: FOLIC ACID 1 MG TABLET PO SCH (09:41)
[2019-06-18] MEDS: THIAMINE HCL 100 MG TABLET PO SCH (09:42)
[2019-06-18] MEDS: DIVALPROEX SODIUM 250 MG TABLET.DR PO SCH ×2 (09:45→17:10)
--- NOTE | 2019-06-18 12:00 | RADIOLOGY REPORT (SQ) ---
EXAM DESCRIPTION: CHEST SINGLE VIEW COMPLETED DATE/TIME: 06/18/2019 11:47 am REASON FOR STUDY: cough COMPARISON: 06/16/2019 EXAM PARAMETERS: NUMBER OF VIEWS: One view. TECHNIQUE: Single frontal radiographic view of the chest acquired. RADIATION DOSE: NA LIMITATIONS: None. FINDINGS: LUNGS AND PLEURA: There is considerable retrocardiac opacification. Left hemidiaphragm re nakita well-defined. MEDIASTINUM AND HILAR STRUCTURES: No masses. Contour normal. HEART AND VASCULAR STRUCTURES: Heart normal in size. Normal vasculature. BONES: No acute findings. HARDWARE: None in the chest. OTHER: No other significant finding. IMPRESSION: Cannot exclude airspace disease in left lower lobe. Atelectasis versus pneumonia. TECHNICAL DOCUMENTATION: JOB ID: [id number] [employer]- All Rights Reserved Reading location - IP/workstation name: [email or web address]
--- NOTE | 2019-06-18 15:19 | PDOC PROGRESS REPORT ---
Subjective Progress Note for:: 06/18/19 Subjective:: The patient is a 59-year-old female with a past medical history of hypertension, asthma, hypothyroidism, arthritis, depression, suicidal depression, substance and alcohol abuse. The patient was seen on morning rounds; no family present at this time. She is found resting in bed comfortably on room air. Patient is awake and oriented to self, place, but not time or situation. She is social and conversationally appropriate. Per nursing, the patient had increased orientation earlier this morning. Her confusion certainly waxes and wanes throughout the day and is noted to be significantly worse at night. She is tells me that she is ready to go home to take care of her cats and then begins mumbling to herself. She denies pain, difficulty breathing, abdominal pain, nausea and vomiting. ROS is limited secondary to mental status. She does appear comfortable and not in any acute distress. No concerns per nursing. Reason For Visit: OVERDOSE,ASP PNEUMONIA,ACUTE RESPIRATORY FAILURE Physical Exam Vital Signs: Temp Pulse Resp BP Pulse Ox 97.8 F 64 16 105/55 L 93 06/18/19 08:18 06/18/19 14:00 06/18/19 08:46 06/18/19 08:18 06/18/19 08:46 Intake & Output 06/17/19 06/18/19 06/19/19 06:59 06:59 06:59 Intake Total 700 Balance 700 Weight 48.3 kg 46.9 kg General appearance: PRESENT: no acute distress, thin, well-developed, well- nourished Head exam: PRESENT: atraumatic, normocephalic Eye exam: PRESENT: conjunctiva pink, EOMI, PERRLA. ABSENT: scleral icterus Ear exam: PRESENT: normal external ear exam Mouth exam: PRESENT: moist, tongue midline Neck exam: ABSENT: carotid bruit, JVD, lymphadenopathy, thyromegaly Respiratory exam: PRESENT: clear to auscultation mercedes, symmetrical, unlabored, other - Room air. ABSENT: rales, rhonchi, wheezes Cardiovascular exam: PRESENT: RRR, +S1, +S2. ABSENT: diastolic murmur, rubs, systolic murmur Pulses: PRESENT: normal dorsalis pedis pul Vascular exam: PRESENT: normal capillary refill GI/Abdominal exam: PRESENT: normal bowel sounds, soft. ABSENT: distended, guarding, mass, organolmegaly, rebound, tenderness Rectal exam: PRESENT: deferred Extremities exam: PRESENT: full ROM. ABSENT: calf tenderness, clubbing, pedal edema Neurological exam: PRESENT: alert, awake, oriented to person, oriented to place, CN II-XII grossly intact. ABSENT: oriented to time, oriented to situation, motor sensory deficit Psychiatric exam: PRESENT: appropriate affect, normal mood. ABSENT: homicidal ideation, suicidal ideation Skin exam: PRESENT: dry, intact, warm. ABSENT: cyanosis, rash Results Laboratory Results: 06/17/19 04:41 06/17/19 04:41 Impressions: Head CT 06/02/19 18:57 IMPRESSION: 1. No acute hemorrhage or mass effect 2. redundant loop of the orogastric tube extends superiorly into the nasopharynx; consider repositioning. Chest CT 06/02/19 20:03 IMPRESSION: 1. Areas of atelectasis/consolidation at the lung bases, left greater than right. No pleural effusions. 2. No hematoma, fluid collection, or contusion is seen in the body wall. 3. No acute intra-abdominal findings. Abdomen/Pelvis CT 06/02/19 20:53 IMPRESSION: 1. Areas of atelectasis/consolidation at the lung bases, left greater than right. No pleural effusions. 2. No hematoma, fluid collection, or contusion is seen in the body wall. 3. No acute intra-abdominal findings. KUB X-Ray 06/13/19 00:00 IMPRESSION: 1. Tip of the enteric tube projects within the gastric lumen. 2. Total opacification of the left lung with abrupt cut off of the left main bronchus. The findings could be secondary to a mucous plug. Apical Lordotic X-Ray 06/14/19 00:00 IMPRESSION: Cardiomegaly without pulmonary edema. Reduced volume on the left with considerable retrocardiac opacification suggesting considerable atelectasis in the left lung. Chest X-Ray 06/18/19 00:00 IMPRESSION: Cannot exclude airspace disease in left lower lobe. Atelectasis versus pneumonia. Assessment and Plan - Diagnosis (1) Acute encephalopathy Is this a current diagnosis for this admission?: Yes Plan: Acute metabolic toxic, metabolic encephalopathy. Overall improved. Continues to have waxing and waning disorientation; currently oriented to self and situation. She is conversational and socially appropriate today. Worsening today possibly related to pneumonia, use of PRN Ativan, and ing. Patient's [id number] does report that she seems to be much more oriented in the early mornings. EEG demonstrated possible structural lesion to the right temporal occipital area. Negative for epilepsy. Continue to monitor on continuous cardiac telemetry. Mental health medication recommendations reviewed. We will discontinue Zyprexa, Celexa, PRN Ativan. Continue BuSpar twice daily. Start Depakote twice daily. Clonidine every 8 hours as needed for anxiety/agitation. Supportive care. Fall, aspiration precautions. Have discussed with nursing the need for the patient to remain out of restraints x24 hours in order to be cleared for inpatient psychiatric placement. Continue one-to-one sitter for safety. (2) Mucus plugging of bronchi Is this a current diagnosis for this admission?: Yes Plan: Resolved; patient now maintaining saturations on room air, clear lung sounds throughout, follow-up imaging is improved. Follow-up chest x-ray reveals a total left side obesity; consistent with mucous plug. Follow-up chest x-ray yesterday is improved. Continue supplemental oxygen via nasal cannula as needed to maintain oxygen saturations. Continue scheduled and as needed nebulizer treatments As needed Robitussin. Out of bed 3 times daily, ambulate. Encourage pulmonary toilet with incentive spirometer, flutter valve, position ch anging. (3) Acute respiratory failure with hypoxia Is this a current diagnosis for this admission?: Yes Plan: Resolved; now maintaining oxygen saturations on room air. Secondary to benzodiazepine overdose and alcohol intoxication. Patient did require intubation; extubated 06/08/2019. Follow-up chest x-ray today reveals a total left side obesity; consistent with mucous plug. Repeat imaging confirms mucous plug; negative for pneumothorax or pleural effusion. Imaging today is significantly improved. (4) Alcohol intoxication Qualifiers: Complication of substance-induced condition: uncomplicated Qualified Code(s): F10.920 - Alcohol use, unspecified with intoxication, uncomplicated Is this a current diagnosis for this admission?: Yes Plan: Resolved. Serum alcohol 337 on admission. Patient initially required intubation and was treated on a Versed drip; this was successfully weaned. No evidence of alcohol withdrawal at this time. Her current behavior could be related to encephalopathic changes from anoxia or chronic alcohol use. Daily multivitamin, thiamine, and folic acid supplementations. (5) Upper GI bleed Is this a current diagnosis for this admission?: Yes Plan: Resolved. She had an EGD which showed actively bleeding gastric ulcer. Bleeding was stopped with Hemospray and ethanol sclerosis by surgicalist. Initially treated with a Protonix and Sandostatin drip. No evidence of recurrent bleeding. H. pylori antigen was negative. Continue daily IV Protonix and Carafate every 8 hours No indications for antibiotic therapy at this time; H. pylori negative. (6) Aspiration pneumonia Qualifiers: Aspiration pneumonia type: due to gastric secretions Laterality: bilateral Is this a current diagnosis for this admission?: No Plan: Resolved; now maintaining oxygen saturations on room air, clear lung sounds, afebrile >48 hours. WBCs trending down. Blood cultures have no growth Sputum culture revealed normal yolie. Patient has completed a full course of antibiotic therapy. Continue supplemental oxygen, scheduled and as needed nebs. Encourage pulmonary toilet secondary to altered mental status, ensure frequent turns and repositioning (7) Bigeminy Is this a current diagnosis for this admission?: Yes Plan: Some bigeminy and occasional PVCs noted Electrolytes are normal. She does not have an abnormally prolonged QT interval. She certainly could have irritated myocardium. Continue to monitor on cardiac telemetry. (8) Diarrhea Qualifiers: Diarrhea type: unspecified type Qualified Code(s): R19.7 - Diarrhea, unspecified Is this a current diagnosis for this admission?: Yes Plan: Improved; decreased frequency of stools. Likely secondary to tube feedings; these have since been discontinued. C. difficile negative. (9) Fever Is this a current diagnosis for this admission?: Yes Plan: Likely secondary to aspiration pneumonia. Afebrile >48 hours Cultures and antibiotics as above. (10) Hypotension Qualifiers: Hypotension type: hypotension due to hypovolemia Qualified Code(s): I95.89 - Other hypotension; E86.1 - Hypovolemia Is this a current diagnosis for this admission?: Yes Plan: Borderline hypotension. Possibly related to prolonged bedbound status. No evidence of sepsis at this time. No indications for pressor support. Continue monitor closely. (11) Suicide attempt Is this a current diagnosis for this admission?: Yes Plan: Psych consulted; medication recommendations reviewed and implemented. Patient remains on involuntary commitment status. (12) Hypothyroidism Is this a current diagnosis for this admission?: Yes Plan: TSH is 28 Free T4 0.78, free T3 3.18. Levothyroxine 25 mcg daily. (13) On parenteral nutrition Is this a current diagnosis for this admission?: Yes Plan: Discontinued. Patient passed bedside swallow eval Speech therapy was consulted; recommends continued pured diet with nectar thickened liquids. Registered dietitian is consulted. (14) Debility Is this a current diagnosis for this admission?: Yes Plan: Secondary to prolonged acute illness. PT/OT consultations. - Time Time Spent with patient: 25-34 minutes Medications reviewed and adjusted accordingly: Yes Anticipated discharge: Other - Patient psychiatric facility Within: when bed available - Plan Summary Plan Summary: The patient is now medically cleared for discharge, however, must be able to stay out of restraints x24 hours to qualify for discharge to either SNF or inpatient psychiatric facility.
--- NOTE | 2019-06-18 15:35 | PSYCHOLOGICAL NOTE ---
Psych Note - Psych Note Date seen by psych provider: 06/18/19 Psych Note: Presenting Problem: IVC, OD of alcohol and Valium, extubation weening began on 06/08/19 at 0819. Serum Alcohol Level was 337 upon arrival to ED. UDS is positive for benzodiazepines. She was seen on 12/22/15 for suicidal ideations. IVC renewed 06/16/19. Patient is still not medically cleared. Attending hospitalist called to inquire about PRN medication to aid in getting the restraints removed, psychosis, confusion agitation. Medication recommendation made by the psychiatric medication provider, Dr. Sarah Beth MD., includes: Add Risperdal 0.25MG twice a day for agitation Diagnosis: OD Impression/Plan: Recommendation to maintain IVC. Patient had an OD of alcohol and Valium, previous SI attempts and MH Hx. Patient still not medically cleared, medical issues still primary at this time. Consulted with Dr. Vallejo regarding the management and care of patient. Attending Hospitalist aware of recommendations.
[2019-06-18] MEDS: RISPERIDONE 0.25 MG TABLET PO SCH (21:18)
[2019-06-19] MEDS: LEVOTHYROXINE SODIUM 0.025 MG TABLET PO SCH (05:58)
[2019-06-19] MEDS: PANTOPRAZOLE SODIUM 40 MG TABLET.DR PO SCH (05:58)
[2019-06-19] MEDS: SUCRALFATE 1 GM TABLET PO SCH ×3 (06:00→21:09)
[2019-06-19] MEDS: INSULIN LISPRO 100 UNIT/ML 3 ML VIAL SUBCUT SCH ×4 (06:23→19:39)
[2019-06-19] MEDS: IPRATROPIUM/ALBUTEROL 0.5-2.5 MG/3 ML AMPUL NEB SCH ×2 (08:34→20:36)
[2019-06-19] MEDS: MULTIVITAMINS W-IRON TABLET, CHEWABLE PO SCH (09:17)
[2019-06-19] MEDS: THIAMINE HCL 100 MG TABLET PO SCH (09:17)
[2019-06-19] MEDS: NICOTINE 21 MG/24 HR PATCH.TD24 TD SCH (09:18)
[2019-06-19] MEDS: METOPROLOL TARTRATE 25 MG TABLET PO SCH ×2 (09:18→21:09)
[2019-06-19] MEDS: POTASSIUM CHLORIDE 20 MEQ PACKET PO SCH ×2 (09:18→21:09)
[2019-06-19] MEDS: BUSPIRONE HCL 10 MG TABLET PO SCH ×2 (09:19→21:09)
[2019-06-19] MEDS: FOLIC ACID 1 MG TABLET PO SCH (09:19)
[2019-06-19] MEDS: DIVALPROEX SODIUM 250 MG TABLET.DR PO SCH ×2 (09:19→17:19)
[2019-06-19] MEDS: RISPERIDONE 0.25 MG TABLET PO SCH ×2 (09:20→17:19)
--- NOTE | 2019-06-19 11:14 | Progress Note Acknowledgement ---
Progress Note Acknowledgement Progess Note Acknowledgement: I, the undersigned member of the medical staff with appropriate privileges and with supervisory authority over [ PAC ], a dependent practice allied health professional, acknowledge that I have reviewed the progress notes entered on this patient, and in my professional judgment believe that the assessment made and/or any care evidenced was appropriate
--- NOTE | 2019-06-19 11:29 | PDOC PROGRESS REPORT ---
Subjective Progress Note for:: 06/19/19 Subjective:: Patient was admitted to the hospital for overdose of alcohol and Valium, patient is still currently needing to be restrained for her own safety patient is currently hallucinating.. Patient does not appear to be hostile or aggressive Reason For Visit: OVERDOSE,ASP PNEUMONIA,ACUTE RESPIRATORY FAILURE Physical Exam Vital Signs: Temp Pulse Resp BP Pulse Ox 98.4 F 84 22 H 110/61 93 06/19/19 07:49 06/19/19 08:36 06/19/19 08:36 06/19/19 07:49 06/19/19 08:36 Intake & Output 06/18/19 06/19/19 06/20/19 06:59 06:59 06:59 Weight 46.9 kg 46.1 kg General appearance: PRESENT: no acute distress, well-developed, well-nourished, other - Patient thinks that a child is in bed with her this morning, however she is oriented to person place and time Respiratory exam: PRESENT: clear to auscultation mercedes. ABSENT: rales, rhonchi, wheezes Cardiovascular exam: PRESENT: RRR. ABSENT: diastolic murmur, rubs, systolic murmur Neurological exam: PRESENT: alert, awake, oriented to person, oriented to place, oriented to time, other - She is able to name other people in the room correctly, son and [id number]. Patient is alert and oriented to person place and time Results Laboratory Results: 06/17/19 04:41 06/17/19 04:41 Impressions: Head CT 06/02/19 18:57 IMPRESSION: 1. No acute hemorrhage or mass effect 2. redundant loop of the orogastric tube extends superiorly into the nasopharynx; consider repositioning. Chest CT 06/02/19 20:03 IMPRESSION: 1. Areas of atelectasis/consolidation at the lung bases, left greater than right. No pleural effusions. 2. No hematoma, fluid collection, or contusion is seen in the body wall. 3. No acute intra-abdominal findings. Abdomen/Pelvis CT 06/02/19 20:53 IMPRESSION: 1. Areas of atelectasis/consolidation at the lung bases, left greater than right. No pleural effusions. 2. No hematoma, fluid collection, or contusion is seen in the body wall. 3. No acute intra-abdominal findings. KUB X-Ray 06/13/19 00:00 IMPRESSION: 1. Tip of the enteric tube projects within the gastric lumen. 2. Total opacification of the left lung with abrupt cut off of the left main bronchus. The findings could be secondary to a mucous plug. Apical Lordotic X-Ray 06/14/19 00:00 IMPRESSION: Cardiomegaly without pulmonary edema. Reduced volume on the left with considerable retrocardiac opacification suggesting considerable atelectasis in the left lung. Chest X-Ray 06/18/19 00:00 IMPRESSION: Cannot exclude airspace disease in left lower lobe. Atelectasis versus pneumonia. Assessment and Plan - Diagnosis (1) Alcohol intoxication Qualifiers: Complication of substance-induced condition: uncomplicated Qualified Code(s): F10.920 - Alcohol use, unspecified with intoxication, uncomplicated Is this a current diagnosis for this admission?: Yes Plan: Resolved. Serum alcohol 337 on admission. Patient initially required intubation and was treated on a Versed drip; this was successfully weaned. No evidence of alcohol withdrawal at this time. Her current behavior could be related to encephalopathic changes from anoxia or chronic alcohol use. Daily multivitamin, thiamine, and folic acid supplementations. 06/19/2019 according to family patient drinks vodka every night in large quantities. Patient is currently taking BuSpar 5 mg every 12 hours as well as Respinol 0.25 mg twice daily (2) Benzodiazepine overdose Is this a current diagnosis for this admission?: Yes Plan: Supportive care, consider flumazenil 06/19/2019 patient currently on BuSpar and Risperdal. Patient reportedly took Valium and she overdosed (3) Hypothyroidism Is this a current diagnosis for this admission?: Yes Plan: TSH is 28 Free T4 0.78, free T3 3.18. Levothyroxine 25 mcg daily. 06/19/2019 I have increased patient's Synthroid 0.075mg. (4) Suicide attempt Is this a current diagnosis for this admission?: Yes Plan: Psych consulted; medication recommendations reviewed and implemented. Patient remains on involuntary commitment status. 06/19/2019 once patient has been out of restraints for 24 hours she will be medically cleared for IVC placement. Patient currently taking BuSpar 5 mg every 12 hours, risperdol 0.25 mg every 12 hours. Patient also taking Depakote 250 mg twice daily. Catapres 0.1 mg every 8 hours as needed - Time Time Spent with patient: 35 or more minutes
[2019-06-19] MEDS: LEVOTHYROXINE SODIUM 0.075 MG TABLET PO SCH (12:38)
--- NOTE | 2019-06-19 14:38 | PSYCHOLOGICAL NOTE ---
Psych Note - Psych Note Date seen by psych provider: 06/19/19 Time seen by psych provider: 12:15 - Nurse contacted [facility] at 1215. Psych Note: Presenting Problem: IVC, OD of alcohol and Valium, extubation weening began on 06/08/19 at 0819. Serum Alcohol Level was 337 upon arrival to ED. UDS is positive for benzodiazepines. She was seen on 12/22/15 for suicidal ideations. IVC renewed 06/16/19. Patient is still not medically cleared. Attending nurse contacted [facility]. Patient in restraints and not medically cleared. Diagnosis: OD Uncomplicated Bereavement Impression/Plan: Recommendation to maintain IVC. Patient had an OD of alcohol and Valium, previous SI attempts and MH Hx. Patient still not medically cleared, medical issues still primary at this time. Consulted with Dr. Vallejo regarding the management and care of patient. Attending Hospitalist aware of recommendations.
--- NOTE | 2019-06-19 16:58 | RADIOLOGY REPORT (SQ) ---
EXAM DESCRIPTION: CT CHEST WITHOUT COMPLETED DATE/TIME: 06/19/2019 4:39 pm REASON FOR STUDY: follow bronchial occlusion COMPARISON: 06/02/2019 TECHNIQUE: CT scan performed of the chest without intravenous contrast. Images reviewed with lung, soft tissue and bone windows. Reconstructed coronal and sagittal MPR images reviewed. All images st ored on PACS. All CT scanners at this facility use dose modulation, iterative reconstruction, and/or weight based d osing when appropriate to reduce radiation dose to as low as reasonably achievable (ALARA). [facility]: Dose Right [facility]: CareDose [facility]: Dose Right [facility]: Teradose 4D [facility]: DAD Technology Limited RADIATION DOSE: CT Rad equipment meets quality standard of care and radiation dose reduction techniq ues were employed. CTDIvol: 3.0 mGy. DLP: 122 mGy-cm. mGy. LIMITATIONS: No technical limitations. FINDINGS: LUNGS AND PLEURA: No dense consolidation. Patchy in areas of alveolar airspace disease mo st consistent with atelectasis. There is linear atelectasis in both lung bases. This is significant ly improved from prior study as well. There are bilateral emphysematous changes most marked in the u pper lobes. There are 2 small pulmonary nodules in the right apex these measure approximately 2.5 mm in greatest diameter. No further workup is needed. HILAR AND MEDIASTINAL STRUCTURES: No identified masses or abnormal nodes. No obvious aneurysm. HEART AND VASCULAR STRUCTURES: Small pericardial effusion new from prior study. UPPER ABDOMEN: No significant findings. Limited exam. THYROID AND OTHER SOFT TISSUES: No masses. No adenopathy. BONES: No significant finding. HARDWARE: None in the chest. OTHER: No other significant findings. IMPRESSION: Patchy bilateral ground-glass opacities. Underlying emphysematous change. No focal con solidation. Minimal bibasilar atelectasis significantly improved from prior study. TECHNICAL DOCUMENTATION: JOB ID: [id number] Quality ID # [id number]: Final reports with documentation of one or more dose reduction techniques (e.g., Au tomated exposure control, adjustment of the mA and/or kV according to patient size, use of iterative reconstruction technique) 2010 [email or web address]- All Rights Reserved Reading location - IP[facility]workstation name: [facility]
[2019-06-20] MEDS: INSULIN LISPRO 100 UNIT/ML 3 ML VIAL SUBCUT SCH ×3 (03:31→13:20)
[2019-06-20] MEDS: LEVOTHYROXINE SODIUM 0.075 MG TABLET PO SCH (05:48)
[2019-06-20] MEDS: SUCRALFATE 1 GM TABLET PO SCH ×3 (05:49→21:28)
[2019-06-20] MEDS: PANTOPRAZOLE SODIUM 40 MG TABLET.DR PO SCH (05:49)
[2019-06-20] MEDS: IPRATROPIUM/ALBUTEROL 0.5-2.5 MG/3 ML AMPUL NEB SCH ×2 (08:20→20:56)
[2019-06-20] MEDS: THIAMINE HCL 100 MG TABLET PO SCH (10:01)
[2019-06-20] MEDS: MULTIVITAMINS W-IRON TABLET, CHEWABLE PO SCH (10:01)
[2019-06-20] MEDS: NICOTINE 21 MG/24 HR PATCH.TD24 TD SCH (10:01)
[2019-06-20] MEDS: FOLIC ACID 1 MG TABLET PO SCH (10:01)
[2019-06-20] MEDS: RISPERIDONE 0.25 MG TABLET PO SCH ×2 (10:01→17:46)
[2019-06-20] MEDS: DIVALPROEX SODIUM 250 MG TABLET.DR PO SCH ×2 (10:01→17:46)
[2019-06-20] MEDS: BUSPIRONE HCL 10 MG TABLET PO SCH ×2 (10:01→21:28)
[2019-06-20] MEDS: METOPROLOL TARTRATE 25 MG TABLET PO SCH ×2 (10:01→21:28)
[2019-06-20] MEDS: POTASSIUM CHLORIDE 20 MEQ PACKET PO SCH ×2 (10:02→21:28)
--- NOTE | 2019-06-20 15:38 | PDOC PROGRESS REPORT ---
Subjective Progress Note for:: 06/20/19 Subjective:: Patient was admitted to the hospital for overdose of alcohol and Valium, patient is still currently needing to be restrained for her own safety patient is currently hallucinating.. Patient does not appear to be hostile or aggressive 06/20/2019 has been without restraints now for 24 hours therefore she qualifies for psychiatric involuntary commitment, as medically stable CT scan of the chest was done yesterday because of densities seen. CT scan showed significant improvement from prior studies Reason For Visit: OVERDOSE,ASP PNEUMONIA,ACUTE RESPIRATORY FAILURE Physical Exam Vital Signs: Temp Pulse Resp BP Pulse Ox 98.3 F 83 16 94/59 L 88 L 06/20/19 07:41 06/20/19 08:22 06/20/19 08:22 06/20/19 07:41 06/20/19 08:22 Intake & Output 06/19/19 06/20/19 06/21/19 06:59 06:59 06:59 Output Total 0 Balance 0 Weight 46.1 kg 45.9 kg General appearance: PRESENT: no acute distress, other - More alert awake and oriented today no display of confusion Respiratory exam: PRESENT: clear to auscultation mercedes. ABSENT: rales, rhonchi, wheezes Cardiovascular exam: PRESENT: RRR. ABSENT: diastolic murmur, rubs, systolic murmur Neurological exam: PRESENT: alert, awake, oriented to person, oriented to place, oriented to time, oriented to situation, CN II-XII grossly intact. ABSENT: motor sensory deficit Psychiatric exam: PRESENT: appropriate affect, normal mood, other - No visual hallucinations today. ABSENT: homicidal ideation, suicidal ideation Results Laboratory Results: 06/17/19 04:41 06/17/19 04:41 Impressions: Head CT 06/02/19 18:57 IMPRESSION: 1. No acute hemorrhage or mass effect 2. redundant loop of the orogastric tube extends superiorly into the nasopharynx; consider repositioning. Abdomen/Pelvis CT 06/02/19 20:53 IMPRESSION: 1. Areas of atelectasis/consolidation at the lung bases, left greater than right. No pleural effusions. 2. No hematoma, fluid collection, or contusion is seen in the body wall. 3. No acute intra-abdominal findings. KUB X-Ray 06/13/19 00:00 IMPRESSION: 1. Tip of the enteric tube projects within the gastric lumen. 2. Total opacification of the left lung with abrupt cut off of the left main bronchus. The findings could be secondary to a mucous plug. Apical Lordotic X-Ray 06/14/19 00:00 IMPRESSION: Cardiomegaly without pulmonary edema. Reduced volume on the left with considerable retrocardiac opacification suggesting considerable atelectasis in the left lung. Chest X-Ray 06/18/19 00:00 IMPRESSION: Cannot exclude airspace disease in left lower lobe. Atelectasis versus pneumonia. Chest CT 06/19/19 15:24 IMPRESSION: Patchy bilateral ground-glass opacities. Underlying emphysematous change. No focal consolidation. Minimal bibasilar atelectasis significantly improved from prior study. Assessment and Plan - Diagnosis (1) Alcohol intoxication Qualifiers: Complication of substance-induced condition: uncomplicated Qualified Code(s): F10.920 - Alcohol use, unspecified with intoxication, uncomplicated Is this a current diagnosis for this admission?: Yes Plan: Resolved. Serum alcohol 337 on admission. Patient initially required intubation and was treated on a Versed drip; this was successfully weaned. No evidence of alcohol withdrawal at this time. Her current behavior could be related to encephalopathic changes from anoxia or chronic alcohol use. Daily multivitamin, thiamine, and folic acid supplementations. 06/19/2019 according to family patient drinks vodka every night in large quantities. Patient is currently taking BuSpar 5 mg every 12 hours as well as Respinol 0.25 mg twice daily 06/20/2019 no evidence of DTs. Patient was counseled concerning alcohol abuse (2) Benzodiazepine overdose Is this a current diagnosis for this admission?: Yes Plan: Supportive care, consider flumazenil 06/19/2019 patient currently on BuSpar and Risperdal. Patient reportedly took Valium and she overdosed 06/20/2019 patient's antidepressants and antipsychotic medications will be pres cribed as an outpatient by psychiatry (3) Hypothyroidism Is this a current diagnosis for this admission?: Yes Plan: TSH is 28 Free T4 0.78, free T3 3.18. Levothyroxine 25 mcg daily. 06/19/2019 I have increased patient's Synthroid 0.075mg. 06/20/2019 patient will need to have a repeat TSH checked in approximately 8 to 12 weeks (4) Suicide attempt Is this a current diagnosis for this admission?: Yes Plan: Psych consulted; medication recommendations reviewed and implemented. Patient remains on involuntary commitment status. 06/19/2019 once patient has been out of restraints for 24 hours she will be medically cleared for IVC placement. Patient currently taking BuSpar 5 mg every 12 hours, risperdol 0.25 mg every 12 hours. Patient also taking Depakote 250 mg twice daily. Catapres 0.1 mg every 8 hours as needed 06/20/2019 patient displays no suicidal or homicidal ideations - Time Time Spent with patient: 25-34 minutes
--- NOTE | 2019-06-20 15:41 | PSYCHOLOGICAL NOTE ---
Psych Note - Psych Note Date seen by psych provider: 06/20/19 Time seen by psych provider: 12:30 - Nurse called around 1230 saying out of restraints. Psych Note: Presenting Problem: IVC, OD of alcohol and Valium, extubation weening began on 06/08/19 at 0819. Serum Alcohol Level was 337 upon arrival to ED. UDS is positive for benzodiazepines. She was seen on 12/22/15 for suicidal ideations. IVC renewed 06/16/19. Patient is still not medically cleared. Attending nurse contacted [facility]. Patient out of restraints since 1230 yesterday. Restraints were soft and utilized so that she did not pull out medical equipment. She is medically cleared so now can and will make inpatient referrals. Diagnosis: OD Uncomplicated Bereavement Impression/Plan: Recommendation to maintain IVC. Patient had an OD of alcohol and Valium, previous SI attempts and MH Hx. Patient medically cleared. Will begin placement efforts. Consulted with Dr. Vallejo regarding the management and care of patient. Attending Hospitalist aware of recommendations.
[2019-06-21] MEDS: SUCRALFATE 1 GM TABLET PO SCH (06:15)
[2019-06-21] MEDS: LEVOTHYROXINE SODIUM 0.075 MG TABLET PO SCH (06:15)
[2019-06-21] MEDS: PANTOPRAZOLE SODIUM 40 MG TABLET.DR PO SCH (06:15)
[2019-06-21 08:31] VITALS: BP 93/41
[2019-06-21] MEDS: IPRATROPIUM/ALBUTEROL 0.5-2.5 MG/3 ML AMPUL NEB SCH (09:05)
--- NOTE | 2019-06-21 09:10 | PDOC TRANSFER SUMMARY ---
General Admission Date/PCP: 06/02/19 22:26 SHMUEL PLEITEZ MD Resuscitation Status: Full Code - Transfer Diagnosis (1) Alcohol intoxication Is this a current diagnosis for this admission?: Yes Diagnosis Summary: Patient reportedly drank a large amount of alcohol, vodka prior to admission blood alcohol level was 337 in the ER. Urine drug screen was positive for benzodiazepines (2) Benzodiazepine overdose Is this a current diagnosis for this admission?: Yes Diagnosis Summary: Drug screen was positive for benzodiazepines reportedly this was Valium. Patient did express suicidal ideations. Patient has also been seen in 2016 for suicidal ideations as well (3) Hypothyroidism Is this a current diagnosis for this admission?: Yes Diagnosis Summary: On 06/13/2019 patient's TSH was 28, free T4 and free T3 were normal patient is now on 0.075 mg of Synthroid (4) Suicide attempt Is this a current diagnosis for this admission?: Yes Diagnosis Summary: . Patient reportedly drank vodka and took the Valium for suicide attempt. - Transfer Medications Home Medications: Amlodipine Besylate [Norvasc 5 mg Tablet] 5 mg PO DAILY 06/08/19 Diazepam [Valium 5 mg Tablet] 5 mg PO DAILY 06/08/19 Thyroid 60 mg PO DAILY 06/08/19 Transfer Medications: Current Medications Acetaminophen (Tylenol Soln 325 Mg/10.15 Ml Udcup) 650 mg PO Q4HP PRN PRN Reason: FOR FEVER Stop: 07/10/19 15:15 Albuterol (Ventolin 0.083% Neb 2.5 Mg/3 Ml Ampul) 2.5 mg NEB RTQ6HP PRN PRN Reason: SHORTNESS OF BREATH Stop: 07/18/19 09:14 Albuterol/Ipratropium (Duoneb 3 Ml Ampul) 3 ml NEB RTQ12 FABBY Stop: 07/17/19 19:59 Last Admin: 06/20/19 20:56 Dose: 3 ml Documented by: Bisacodyl (Dulcolax 10 Mg Supp.Rect) 10 mg VT DAILYP PRN PRN Reason: UNRESOLVED CONSTIPATION Stop: 07/06/19 08:42 Buspirone HCl (Buspar 10 Mg Tablet) 5 mg PO Q12 FABBY Stop: 07/10/19 21:59 Last Admin: 06/20/19 21:28 Dose: 5 mg Documented by: Clonidine (Catapres 0.1 Mg Tablet) 0.1 mg PO Q8HP PRN PRN Reason: ANXIETY/AGITATION Stop: 07/17/19 14:04 Divalproex Sodium (Depakote Ec 250 Mg Tablet.Dr) 250 mg PO BID FABBY Stop: 07/17/19 17:59 Last Admin: 06/20/19 17:46 Dose: 250 mg Documented by: Folic Acid (Folvite 1 Mg Tablet) 1 mg PO DAILY FABBY Stop: 07/13/19 09:59 Last Admin: 06/20/19 10:01 Dose: 1 mg Documented by: Guaifenesin (Robitussin Syrup 200 Mg/10 Ml Ud Cup) 200 mg PO Q6HP PRN PRN Reason: COUGH Stop: 07/17/19 14:02 Levothyroxine Sodium (Synthroid 0.075 Mg Tablet) 0.075 mg PO Q6AM FABBY Stop: 07/19/19 11:59 Last Admin: 06/21/19 06:15 Dose: 0.075 mg Documented by: Metoprolol Tartrate (Lopressor Inj/Pf 5 Mg/5 Ml Sdv) 2.5 mg IV Q6HP PRN PRN Reason: GIVE FOR HR > 120 Stop: 07/10/19 13:52 Last Admin: 06/10/19 15:06 Dose: 2.5 mg Documented by: Metoprolol Tartrate (Lopressor 25 Mg Tablet) 12.5 mg PO Q12 FABBY Stop: 07/10/19 21:59 Last Admin: 06/20/19 21:28 Dose: 12.5 mg Documented by: Multivitamins/Iron (Flintstones Chewable Multivit W/Fe Tab) 2 tab PO DAILY FABBY Stop: 07/13/19 09:59 Last Admin: 06/20/19 10:01 Dose: 2 tab Documented by: Nicotine (Nicoderm 21 Mg/24 Hr Transderm Patch) 1 each TD DAILY FABBY Stop: 07/17/19 16:29 Last Admin: 06/20/19 10:01 Dose: 1 each Documented by: Pantoprazole Sodium (Protonix [address] Tablet) 40 mg PO Q6AM FABBY Stop: 07/19/19 05:59 Last Admin: 06/21/19 06:15 Dose: 40 mg Documented by: Potassium Chloride (Potassium Chloride 20 Meq Packet) 40 meq PO Q12 FABBY Stop: 07/08/19 21:59 Last Admin: 06/20/19 21:28 Dose: 40 meq Documented by: Risperidone (Risperdal 0.25 Mg Tablet) 0.25 mg PO BID FABBY Stop: 07/18/19 19:59 Last Admin: 06/20/19 17:46 Dose: 0.25 mg Documented by: Sodium Chloride (Saline Flush 2.5 Ml Monoject Prefil Syrin) 2.5 ml IV Q8 FABBY Stop: 07/03/19 05:59 Last Admin: 06/21/19 06:18 Dose: 2.5 ml Documented by: Sucralfate (Carafate 1 Gm Tablet) 1 gm PO Q8 FABBY Stop: 07/09/19 21:59 Last Admin: 06/21/19 06:15 Dose: 1 gm Documented by: Thiamine HCl (Thiamine 100 Mg Tablet) 100 mg PO DAILY FABBY Stop: 07/13/19 09:59 Last Admin: 06/20/19 10:01 Dose: 100 mg Documented by: - Allergies Allergies/Adverse Reactions: bupropion HCl [From Wellbutrin] Allergy (Severe, Verified 01/24/17 09:11) [facility] Hospital Course Hospital Course: She was admitted to the hospital through the emergency room on 06/03/2019 found to be intubated and sedated family reported that she had left threatening text messages of suicide.. Patient was found by EMS with agonal respirations and an empty bottle of 80 proof alcohol and an unknown quantity of Valium and unknown milligrams that had been filled on May 31. Patient was unresponsive due to intubation in the ER.. Patient was extubated on 06/08/2019 was found to be restless and agitated while in the hospital the patient did have a bleeding gastric ulcer which was stopped with hemo-spray and ethanol sclerosis by general surgery patient was placed on a Protonix drip at that time Patient was seen on multiple occasions by psychiatry patient was medically cleared on 06/20/2019 having been out of restraints for 24 hours.. Patient has been seen on multiple times with her sons as well as their wives. She had a CT scan of her chest performed on which showed a patchy bilateral groundglass opacities with underlying emphysematous changes however no focal consolidation minimal bibasilar atelectasis which was significantly improved from the prior study At the time of discharge patient is awake alert she is oriented x3. She is expressing a desire to go through counseling. Patient appears to be stable on her medications Physical Exam Vital Signs: Temp Pulse Resp BP Pulse Ox 98.0 F 64 18 93/41 L 97 06/21/19 07:45 06/21/19 07:45 06/21/19 07:45 06/21/19 07:45 06/21/19 07:45 Intake & Output 06/20/19 06/21/19 06/22/19 06:59 06:59 06:59 Intake Total 1220 Output Total 0 Balance 0 1220 Weight 45.9 kg 44.8 kg General appearance: PRESENT: disheveled Respiratory exam: PRESENT: clear to auscultation mercedes. ABSENT: rales, rhonchi, wheezes Cardiovascular exam: PRESENT: RRR. ABSENT: diastolic murmur, rubs, systolic murmur Neurological exam: PRESENT: alert, awake, oriented to person, oriented to place, oriented to time, oriented to situation, CN II-XII grossly intact. ABSENT: motor sensory deficit Psychiatric exam: PRESENT: appropriate affect, normal mood, other - Patient's affect appears to be appropriate. ABSENT: homicidal ideation, suicidal ideation Results Laboratory Results: 06/17/19 04:41 06/17/19 04:41 Impressions: Head CT 06/02/19 18:57 IMPRESSION: 1. No acute hemorrhage or mass effect 2. redundant loop of the orogastric tube extends superiorly into the nasopharynx; consider repositioning. Abdomen/Pelvis CT 06/02/19 20:53 IMPRESSION: 1. Areas of atelectasis/consolidation at the lung bases, left greater than right. No pleural effusions. 2. No hematoma, fluid collection, or contusion is seen in the body wall. 3. No acute intra-abdominal findings. KUB X-Ray 06/13/19 00:00 IMPRESSION: 1. Tip of the enteric tube projects within the gastric lumen. 2. Total opacification of the left lung with abrupt cut off of the left main bronchus. The findings could be secondary to a mucous plug. Apical Lordotic X-Ray 06/14/19 00:00 IMPRESSION: Cardiomegaly without pulmonary edema. Reduced volume on the left with considerable retrocardiac opacification suggesting considerable atelectasis in the left lung. Chest X-Ray 06/18/19 00:00 IMPRESSION: Cannot exclude airspace disease in left lower lobe. Atelectasis versus pneumonia. Chest CT 06/19/19 15:24 IMPRESSION: Patchy bilateral ground-glass opacities. Underlying emphysematous change. No focal consolidation. Minimal bibasilar atelectasis significantly improved from prior study. Plan Time Spent: Greater than 30 Minutes - Patient is being transferred to psychiatry involuntary commitment. Patient is medically stable for transfer
[2019-06-21] MEDS: MULTIVITAMINS W-IRON TABLET, CHEWABLE PO SCH (09:16)
[2019-06-21] MEDS: THIAMINE HCL 100 MG TABLET PO SCH (09:17)
[2019-06-21] MEDS: RISPERIDONE 0.25 MG TABLET PO SCH (09:17)
[2019-06-21] MEDS: POTASSIUM CHLORIDE 20 MEQ PACKET PO SCH (09:17)
[2019-06-21] MEDS: NICOTINE 21 MG/24 HR PATCH.TD24 TD SCH (09:17)
[2019-06-21] MEDS: FOLIC ACID 1 MG TABLET PO SCH (09:17)
[2019-06-21] MEDS: METOPROLOL TARTRATE 25 MG TABLET PO SCH (09:18)
[2019-06-21] MEDS: BUSPIRONE HCL 10 MG TABLET PO SCH (09:18)
[2019-06-21] MEDS: DIVALPROEX SODIUM 250 MG TABLET.DR PO SCH (09:18)
--- NOTE | 2019-06-21 09:20 | PSYCHOLOGICAL NOTE ---
Psych Note - Psych Note Date seen by psych provider: 06/21/19 Psych Note: Presenting Problem: IVC, OD of alcohol and Valium, extubation weening began on 06/08/19 at 0819. Serum Alcohol Level was 337 upon arrival to ED. UDS is positive for benzodiazepines. She was seen on 12/22/15 for suicidal ideations. IVC renewed 06/16/19. Patient is still not medically cleared. Patient was [facility] to [facility] in [place] last night. Transportation has been requested Diagnosis: OD Uncomplicated Bereavement Impression/Plan: Recommendation to maintain IVC. Patient had an OD of alcohol and Valium, previous SI attempts and MH Hx. Patient medically cleared. Consulted with Dr. Vallejo regarding the management and care of patient. Attending Hospitalist aware of recommendations.
== END 2019-06-21 11:22 | DRG 917 ==
LOC: ER 18:25 → EH 22:26 → ICU 06-03 00:01 → 3S 06-11 17:18
PROVIDERS: ADMIT Internal Medicine; ATTEND Internal Medicine
PROC: 0DJ08ZZ Inspection of Upper Intestinal Tract, Via Natural or Artificial Opening Endoscopic (ICD-10-PCS; 2019-06-04)
PROC: 3E0G8GC Introduction of Other Therapeutic Substance into Upper GI, Via Natural or Artificial Opening Endoscopic (ICD-10-PCS; principal; 2019-06-04 09:00)
DX: T42.4X2A Poisoning by benzodiazepines, intentional self-harm, initial encounter (principal); J96.01 Acute respiratory failure with hypoxia; K25.4 Chronic or unspecified gastric ulcer with hemorrhage; J69.0 Pneumonitis due to inhalation of food and vomit; G92 Toxic encephalopathy; K29.61 Other gastritis with bleeding; K29.81 Duodenitis with bleeding; T17.590A Other foreign object in bronchus causing asphyxiation, initial encounter; I95.89 Other hypotension; E86.1 Hypovolemia; K31.7 Polyp of stomach and duodenum; R00.8 Other abnormalities of heart beat; Y92.9 Unspecified place or not applicable; F10.129 Alcohol abuse with intoxication, unspecified; Y90.8 Blood alcohol level of 240 mg/100 ml or more; E03.9 Hypothyroidism, unspecified; I10 Essential (primary) hypertension; F32.9 Major depressive disorder, single episode, unspecified; T51.0X2A Toxic effect of ethanol, intentional self-harm, initial encounter; I49.3 Ventricular premature depolarization; R50.9 Fever, unspecified; X58.XXXA Exposure to other specified factors, initial encounter; F41.9 Anxiety disorder, unspecified; Z88.8 Allergy status to other drugs, medicaments and biological substances; Z60.2 Problems related to living alone; Z78.1 Physical restraint status
CPT/HCPCS: 36415; 36600; 43255; 51702; 70450; 71045; 71047; 71250; 74018; 74176; 80048; 80053; 80202; 80307; 81001; 82607; 82728; 82746; 82803; 82962; 83036; 83540; 83550; 83605; 83735; 84100; 84132; 84439; 84443; 84481; 85025; 85027; 85045; 85610; 85730; 86850; 86900; 86901; 87040; 87070; 87086; 87205; 87493; 93005; 93010; 94002; 94003; 94640; 94667; 94668; 95819; 96361; 96365; 96375; 99291; B4155; J0171; J1200; J1610; J1630; J1644; J1815; J2060; J2250; J2310; J2354; J2405; J2543; J2704; J3010; J3230; J3370; J3475; J3480; J3490; J7030; J7040; J7050; J7060; J7120; J7620; S0164

== ENCOUNTER → 2019-11-30 | Outpatient (CLI) | payer MEDICARE ==
--- NOTE | 2019-11-30 11:16 | WOMENS IMAGING REPORT ---
EXAM DESCRIPTION: BILAT SCREENING MAMMO W/CAD COMPLETED DATE/TIME: 11/30/2019 9:30 am REASON FOR STUDY: Z12.31 SCREENING MAMMO Z12.31 ENCNTR SCREEN MAMMOGRAM FOR MALIGNANT NEOPLASM OF B RE COMPARISON: Multiple since 2010 EXAM PARAMETERS: Standard craniocaudal and mediolateral oblique views of each breast recorded using digital acquisition. Read with the assistance of CAD. .Beacon Reader - Snippets Ribbon Hanking Machine Operator Version 9.2 LIMITATIONS: None. FINDINGS: Findings present which are benign by mammographic criteria. No suspicious masses, calcifi cations or architectural distortion. Pertinent benign findings: Stable asymmetrically dense tissue in the right retroareolar region as com pared to 2010. Benign mammographic findings may include one or more of the following: Smooth masses, popcorn/rim/co arse calcifications, asymmetries, post-procedure changes, and lesions with long-standing stability. IMPRESSION: BENIGN MAMMOGRAPHIC FINDINGS. BIRADS 2 BREAST DENSITY: b. There are scattered areas of fibroglandular density. BIRAD: ASSESSMENT: 2 BENIGN FINDING(S) RECOMMENDATION: ROUTINE SCREENING Please continue yearly bilateral screening mammography/tomosynthesis in November 2020 COMMENT: The patient has been notified of the results by letter per MQSA requirements. Additional no tification policies are in place for contacting patient with suspicious or incomplete findings. Quality ID #[id number]: The [employer] recommends an annual screening mammogram for women aged 40 years or over. This facility utilizes a reminder system to ensure that all patients receive reminder letters, and/or direct phone calls for appointments. This includes reminders for routine scr eening mammograms, diagnostic mammograms, or other Breast Imaging Interventions when appropriate. Th is patient will be placed in the appropriate reminder system. TECHNICAL DOCUMENTATION: FINDING NUMBER: (1) ASSESSMENT: (1) JOB ID: [id number] 2010 [employer] ([employer])- All Rights Reserved Reading location - IP/workstation name: [email or web address]
== END ==
LOC: WI 09:05
PROVIDERS: ATTEND Registered Nurse
DX: Z12.31 Encounter for screening mammogram for malignant neoplasm of breast (principal)
CPT/HCPCS: 77067

== ENCOUNTER 2019-12-19 09:07 | Emergency (ER) | payer MEDICARE, OTHER ==
--- NOTE | 2019-12-19 09:38 | ER Document Report ---
ED Medical Screen (RME) - General Chief Complaint: Breathing Difficulty Stated Complaint: DIFFICULTY BREATHING Time Seen by Provider: 12/19/19 09:34 Primary Care Provider: MAXINE POWERS SURVEILLANCE OPERATOR [Primary Care Provider] - Follow up as needed Mode of Arrival: Ambulatory Information source: Patient Notes: 59-year-old female presents to ED for cough congestion short of breath, runny nose with scratchy throat. She states she has not had a fever. She does have sinus pressure. Both ears have pressure. She states she has not had a fever. Does smoke 1/2 pack a day, drinks a couple times a week, denies any street drugs. She states she does have a history of asthma no longer takes blood pressure medicine. Has any history of heart problems. Only pain she has is her chronic sciatica pain. I have greeted and performed a rapid initial assessment of this patient. A comprehensive ED assessment and evaluation of the patient, analysis of test results and completion of medical decision making process will be conducted by an additional ED providers. TRAVEL OUTSIDE OF THE [place] IN LAST 30 DAYS: No - Related Data Allergies/Adverse Reactions: bupropion HCl [From Wellbutrin] Allergy (Severe, Verified 12/19/19 09:33) Hives Past Medical History - Past Medical History Cardiac Medical History: Reports: Hx Hypertension - MEDICATED Denies: Hx Heart Attack Pulmonary Medical History: Reports: Hx Asthma - humidity affected, inhaler PRN/LAST EPISODE FALL 2013 Denies: Hx Bronchitis, Hx COPD, Hx Pneumonia Neurological Medical History: Denies: Hx Cerebrovascular Accident, Hx Seizures Endocrine Medical History: Reports: Hx Hypothyroidism Renal/ Medical History: Denies: Hx Peritoneal Dialysis GI Medical History: Reports: Hx Colonoscopy. Denies: Hx Hepatitis, Hx Hiatal Hernia, Hx Ulcer Musculoskeltal Medical History: Reports Hx Arthritis - Osteoporosis Spine, arms and hands, Reports Hx Musculoskeletal Deformity, Reports Hx Musculoskeletal Trauma Psychiatric Medical History: Reports: Hx Anxiety, Hx Depression Traumatic Medical History: Reports: Hx Fractures - Arm Infectious Medical History: Denies: Hx Hepatitis Past Surgical History: Reports: Hx Genitourinary Surgery - Bladder sling, Other - Cataracts. Denies: Hx Hysterectomy, Hx Mastectomy, Hx Open Heart Surgery - Immunizations Hx Diphtheria, Pertussis, Tetanus Vaccination: Yes Physical Exam - Vital signs Vitals: Temp Pulse Resp BP Pulse Ox 98.4 F 70 16 130/81 H 95 03/18/20 09:11 12/19/19 09:11 12/19/19 09:11 12/19/19 09:11 12/19/19 09:11 Course - Vital Signs Vital signs: Temp Pulse Resp BP Pulse Ox 98.4 F 70 16 130/81 H 95 12/19/19 09:11 12/19/19 09:11 12/19/19 09:11 12/19/19 09:11 12/19/19 09:11 Doctor's Discharge - Discharge Referrals: MAXINE POWERS, SURVEILLANCE OPERATOR [Primary Care Provider] - Follow up as needed
[2019-12-19 10:10] LABS: ABSOLUTE EOSINOPHILS # (AUTO) 0.3 10^3/uL (0.0-0.6); ABSOLUTE LYMPHOCYTES (AUTO) 2.3 10^3/uL (0.5-4.7); ABSOLUTE MONOCYTES (AUTO) 0.7 10^3/uL (0.1-1.4); ABSOLUTE NEUT (AUTO) 5.1 10^3/uL (1.7-8.2); BASOPHILS % (AUTO) 0.4 % (0-2); EOSINOPHILS % (AUTO) 3.4 % (0-6); HEMATOCRIT 42.5 % (36.0-47.0); HEMOGLOBIN 14.6 g/dL (12.0-15.5); LYMPHOCYTES % (AUTO) 27.4 % (13-45); MEAN CORPUSCULAR HGB CONC 34.3 g/dL (32.0-36.0); MEAN CORPUSCULAR VOLUME 90 fl (80-97); MONOCYTES % (AUTO) 8.1 % (3-13); PLATELET COUNT 311 10^3/uL (150-450); RED CELL DISTRIBUTION WIDTH 13.3 % (11.5-14.0); SEGMENTED NEUTROPHILS % (AUTO) 60.7 % (42-78); TOTAL CELLS COUNTED % (AUTO) 100 %; WHITE BLOOD COUNT 8.5 10^3/uL (4.0-10.5)
[2019-12-19 10:12] LABS: APPEARANCE,URINE CLEAR; BILIRUBIN,URINE NEGATIVE (NEGATIVE); COLOR,URINE YELLOW; GLUCOSE, URINE NEGATIVE (NEGATIVE); KETONES,URINE NEGATIVE (NEGATIVE); PROTEIN,URINE NEGATIVE (NEGATIVE); URINE SPECIFIC GRAVITY 1.004; UROBILINOGEN,URINE NEGATIVE mg/dL (<2.0)
--- NOTE | 2019-12-19 10:25 | RADIOLOGY REPORT (SQ) ---
EXAM DESCRIPTION: CHEST 2 VIEWS COMPLETED DATE/TIME: 12/19/2019 10:08 am REASON FOR STUDY: cough congestion short of breath COMPARISON: 06/18/2019. EXAM PARAMETERS: NUMBER OF VIEWS: two views TECHNIQUE: Digital Frontal and Lateral radiographic views of the chest acquired. RADIATION DOSE: NA LIMITATIONS: none FINDINGS: LUNGS AND PLEURA: No focal airspace disease, pleural effusion or pneumothorax. MEDIASTINUM AND HILAR STRUCTURES: No masses or contour abnormalities. HEART AND VASCULAR STRUCTURES: Heart normal size. No evidence for failure. BONES: Significant serpiginous thoracolumbar curvature. HARDWARE: None in the chest. OTHER: No other significant finding. IMPRESSION: No evidence of acute intrathoracic process. TECHNICAL DOCUMENTATION: JOB ID: [id number] 2010 [employer]- All Rights Reserved Reading location - IP/workstation name: [email or web address]
[2019-12-19 10:40] LABS: ALBUMIN 4.4 g/dL (3.5-5.0); ALKALINE PHOSPHATASE 74 U/L (38-126); ANION GAP 7 (5-19); ASPARTATE AMINO TRANSFERASE 24 U/L (14-36); BILIRUBIN,TOTAL 0.4 mg/dL (0.2-1.3); BLOOD UREA NITROGEN 14 mg/dL (7-20); CALCIUM 9.6 mg/dL (8.4-10.2); CARBON DIOXIDE 30 mmol/L (22-30); CHLORIDE 103 mmol/L (98-107); GLUCOSE 107 mg/dL (75-110); POTASSIUM 4.4 mmol/L (3.6-5.0); TOTAL PROTEIN 7.3 g/dL (6.3-8.2)
[2019-12-19] MEDS ORDERED: DEXAMETHASONE SOD PHOS INJ 10 MG/1 ML VIAL IM ONE (11:02)
[2019-12-19] MEDS ORDERED: KETOROLAC TROMETHAMINE 60 MG/2 ML SDV IM ONE (11:02)
--- NOTE | 2019-12-19 11:02 | ER Document Report ---
ED General - General Chief Complaint: Cold Symptoms Stated Complaint: DIFFICULTY BREATHING Time Seen by Provider: 12/19/19 09:34 Primary Care Provider: MAXINE POWERS NP [Primary Care Provider] - Follow up as needed Mode of Arrival: Ambulatory Notes: Patient is a 59-year-old female who presents the emergency department with shortness of breath, sinus pressure, and bilateral ear pain. Patient states that her symptoms started a week ago. She denies any fever or cough. Patient states that she also has right sciatic nerve pain. Patient states that she normally feels better after receiving a steroid injection. Patient denies any fever. Patient denies any history of IV drug abuse. No loss of bladder or bowel function. Patient is able to walk. Patient denies any recent travel. She denies any contact with any people positive for COVID 19. TRAVEL OUTSIDE OF THE [place] IN LAST 30 DAYS: No - Related Data Allergies/Adverse Reactions: bupropion HCl [From Wellbutrin] Allergy (Severe, Verified 12/19/19 09:33) Hives Past Medical History - General Information source: Patient - Social History Smoking Status: Current Every Day Smoker Chew tobacco use (# tins/day): No Frequency of alcohol use: Social Drug Abuse: None Family History: CAD, Hyperlipidemia, Hypertension, Malignancy Patient has suicidal ideation: No Patient has homicidal ideation: No - Past Medical History Cardiac Medical History: Reports: Hx Hypertension - MEDICATED Denies: Hx Heart Attack Pulmonary Medical History: Reports: Hx Asthma - humidity affected, inhaler PRN/LAST EPISODE FALL 2013 Denies: Hx Bronchitis, Hx COPD, Hx Pneumonia Neurological Medical History: Denies: Hx Cerebrovascular Accident, Hx Seizures Endocrine Medical History: Reports: Hx Hypothyroidism Renal/ Medical History: Denies: Hx Peritoneal Dialysis GI Medical History: Reports: Hx Colonoscopy. Denies: Hx Hepatitis, Hx Hiatal Hernia, Hx Ulcer Musculoskeletal Medical History: Reports Hx Arthritis - Osteoporosis Spine, arms and hands, Reports Hx Musculoskeletal Deformity, Reports Hx Musculoskeletal Trauma Psychiatric Medical History: Reports: Hx Anxiety, Hx Depression Traumatic Medical History: Reports: Hx Fractures - Arm Infectious Medical History: Denies: Hx Hepatitis Past Surgical History: Reports: Hx Genitourinary Surgery - Bladder sling, Other - Cataracts. Denies: Hx Hysterectomy, Hx Mastectomy, Hx Open Heart Surgery - Immunizations Hx Diphtheria, Pertussis, Tetanus Vaccination: Yes Hx Pneumococcal Vaccination: 10/03/04 Review of Systems - Review of Systems Notes: REVIEW OF SYSTEMS: CONSTITUTIONAL : Denies recent illness. Denies recent unintentional weight loss. Denies fever, chills, or sweats. EENT: See HPI. CARDIOVASCULAR: Denies chest pain. RESPIRATORY: See HPI. GASTROINTESTINAL: Denies nausea, vomiting, and diarrhea. Denies abdominal pain. Denies constipation. GENITOURINARY: Denies difficulty urinating, burning, blood in urine, urgency or frequency. MUSCULOSKELETAL: See HPI. SKIN: Denies rash, itchiness, or lesions HEMATOLOGIC : Denies easy bruising or bleeding. LYMPHATIC: Denies swollen, painful, enlarged glands. NEUROLOGICAL: Denies no numbness or tingling denies weakness. Denies headache. Denies altered mental status. Denies alteration in speech. PSYCHIATRIC: Denies stress, anxiety, alteration in sleep patterns, or depressi on. All other systems reviewed and negative. Physical Exam - Vital signs Vitals: Temp Pulse Resp BP Pulse Ox 98.4 F 70 16 130/81 H 95 12/19/19 09:11 12/19/19 09:11 12/19/19 09:11 12/19/19 09:11 12/19/19 09:11 - Notes Notes: PHYSICAL EXAMINATION: GENERAL: Appears well, healthy, well-nourished, no acute distress. HEAD: Normocephalic, atraumatic. EYES: PERRL, conjunctiva normal, all extraocular movements intact, sclera nonicteric ENT: Moist mucous membranes. Edema and erythema noted to nasal mucosa. NECK: Supple, no noticeable swelling, redness, rash. Normal range of motion. LUNGS: Equal breath sounds bilaterally and clear to auscultation. Expiratory wheezes noted in the right lung parker. CARDIOVASCULAR: S1-S2, regular rate, regular rhythm. Radial pulses 2+, normal. ABDOMEN: Normoactive bowel sounds. Soft, nontender, no guarding, no rebound tenderness, and no masses palpated. EXTREMITIES: Normal strength and range of motion, no pitting or edema. No cyanosis. Tenderness noted to right lower back down to buttock. NEUROLOGICAL: Moves all extremities upon command. Strength 5/5 in all extremities. PSYCH: Normal mood, normal affect. SKIN: Warm, dry. No rash, lesions, ulcerations noted. Normal skin turgor. Course - Re-evaluation Re-evalutation: 12/19/19 11:10 Hematology, chemistries, and urine are all normal. Patient x-ray is normal. Patient will receive Decadron and Toradol here in the emergency department. I also put her on Augmentin, as she has had sinus congestion for over a week. She also will be sent home with an albuterol inhaler, as she is wheezy in her right lung. She will also be started on Zyrtec and Flonase. She will follow-up with her primary care provider. She is in agreement with this plan. Follow-up precautions were given. Verbal discharge instructions were given to the patient. They verbalized understanding. They are stable for discharge. - Vital Signs Vital signs: Temp Pulse Resp BP Pulse Ox 98.4 F 70 16 130/81 H 95 12/19/19 09:11 12/19/19 09:11 12/19/19 09:11 12/19/19 09:11 12/19/19 09:11 - Laboratory Result Diagrams: 12/19/19 09:48 12/19/19 09:48 Laboratory results interpreted by me: 12/19/19 09:48 Creatinine 0.51 L Discharge - Discharge Clinical Impression: Seasonal allergies, Right sciatic nerve pain Acute sinusitis Qualifiers: Sinusitis location: maxillary Recurrence: not specified as recurrent Qualified Code(s): J01.00 - Acute maxillary sinusitis, unspecified Condition: Stable Disposition: HOME, SELF-CARE Additional Instructions: You were seen today in the emergency department for sinus pressure, ear pain, and shortness of breath. Your chest x-ray is normal. Your labs are normal. You have a sinus infection and are being started on Augmentin to help with your sinus infection. He also are here for sciatic nerve pain. You received Toradol and Decadron here in the emergency department. Please follow-up with your primary care provider. I highly suggest you go to physical therapy to help with your sciatic nerve pain. Please start cetirizine and Flonase to help with your allergies. You are also being sent home with an inhaler due to wheezing on the right side in your lungs. Take 1-2 puffs every 4-6 hours as needed for shortness of breath. Prescriptions: Cetirizine HCl [All Day Allergy] 10 mg PO DAILY #30 tablet Amoxicillin/Potassium Clav [Augmentin 875-125 Tablet] 1 tab PO BID #20 tab Fluticasone Propionate [Flonase Nasal [place] 50 Mcg/[place] 16 gm] 2 sprays NASL DAILY #1 inhaler Forms: Return to Work Referrals: MAXINE POWERS, DADO OPERATOR [Primary Care Provider] - Follow up as needed
[2019-12-19] MEDS ORDERED: ALBUTEROL SULFATE HFA (90 MCG/PUFF) 8 GM MDI (1 MDI/ER DISP) IH PRN (11:03)
[2019-12-19 11:46] VITALS: BP 129/71
== END 2019-12-19 11:44 | disposition home or self-care (01) ==
LOC: ER 09:07
DX: J45.909 Unspecified asthma, uncomplicated (principal); J01.00 Acute maxillary sinusitis, unspecified; M54.31 Sciatica, right side; R06.02 Shortness of breath; R09.89 Other specified symptoms and signs involving the circulatory and respiratory systems; H92.03 Otalgia, bilateral; I10 Essential (primary) hypertension; F17.200 Nicotine dependence, unspecified, uncomplicated; Z88.8 Allergy status to other drugs, medicaments and biological substances
CPT/HCPCS: 99283; 96372; 36415; 83690; 85025; 80053; 81001; 84484; 71046; J1885; J1100; A9270; J3490

== ENCOUNTER → 2020-03-12 | Outpatient (CLI) | payer MEDICARE, OTHER ==
--- NOTE | 2020-03-12 10:07 | RADIOLOGY REPORT (SQ) ---
EXAM DESCRIPTION: U/S ABDOMEN LIMITED W/O DOP IMAGES COMPLETED DATE/TIME: 03/12/2020 9:18 am REASON FOR STUDY: CUTANEOUS ABSCESS OF ABDOMINAL WALL L02.211 CUTANEOUS ABSCESS OF ABDOMINAL WALL COMPARISON: None. TECHNIQUE: Dynamic and static grayscale and color Doppler images of the paraumbilical region were ob tained. LIMITATIONS: None. FINDINGS: Per the electromedical equipment technician report the patient has experienced pain in the periumbilical region fo r 3 weeks that is associated with erythema. There is a complex subcutaneous fluid collection posterior to the umbilicus that measures 1.6 x 0.9 x 0.7 cm. There is no discernible skin track and on Doppler there is no surrounding hyperemia. IMPRESSION: Complex subcutaneous fluid collection posterior to the umbilicus that measures 1.6 x 0.9 x 0.7 cm. There is no discernible skin track and on Doppler there is no surrounding hyperemia. The findings are concerning for a subcutaneous abscess. TECHNICAL DOCUMENTATION: JOB ID: [id number] 2010 [email or web address]- All Rights Reserved Reading location - IP/workstation name: [email or web address]
== END ==
LOC: RAD 08:42
PROVIDERS: ATTEND Registered Nurse
DX: L02.211 Cutaneous abscess of abdominal wall (principal)
CPT/HCPCS: 76705

== ENCOUNTER 2020-08-23 07:08 | Emergency (ER) | payer MEDICARE, OTHER ==
[2020-08-23 07:20] VITALS: BP 131/62
--- NOTE | 2020-08-23 08:51 | ER Document Report ---
HPI - HPI Patient complains to provider of: Low back pain Time Seen by Provider: 08/23/20 08:40 Onset: Other - 4 days Onset/Duration: Persistent Quality of pain: Achy Pain Level: 4 Context: Patient states that she slid on a wet surface 4 days ago. Patient states that she did not fall but darius her back. Patient does have a history of chronic back pain with sciatica. Patient aggravated her chronic pain. Patient also states that she chipped a tooth recently and has had right upper dental pain as well. Patient denies any fever. Patient denies any urinary retention or incontinence symptoms. Associated Symptoms: denies: Fever, Nausea, Vomiting Exacerbated by: Movement Relieved by: Denies Similar symptoms previously: Yes Recently seen / treated by doctor: No - ROS ROS below otherwise negative: Yes Systems Reviewed and Negative: Yes All other systems reviewed and negative - CONSTITUTIONAL Constitutional: DENIES: Fever, Chills - EENT Notes: Dental pain - NEURO Neurology: DENIES: Headache - CARDIOVASCULAR Cardiovascular: DENIES: Chest pain - RESPIRATORY Respiratory: DENIES: Trouble Breathing, Coughing - GASTROINTESTINAL Gastrointestinal: DENIES: Nausea, Patient vomiting - URINARY Urinary: DENIES: Dysuria, Urgency, Frequency - REPRODUCTIVE Reproductive: DENIES: : - MUSCULOSKELETAL Musculoskeletal: REPORTS: Back Pain. DENIES: Extremity pain, Neck Pain - DERM Skin Color: Normal Skin Problems: None Past Medical History - General Information source: Patient - Social History Smoking Status: Current Every Day Smoker Frequency of alcohol use: Occasional Drug Abuse: None Occupation: None Family History: CAD, Hyperlipidemia, Hypertension, Malignancy - Past Medical History Cardiac Medical History: Reports: Hx Hypertension - MEDICATED Denies: Hx Heart Attack Pulmonary Medical History: Reports: Hx Asthma - humidity affected, inhaler PRN/LAST EPISODE FALL 2013 Denies: Hx Bronchitis, Hx COPD, Hx Pneumonia Neurological Medical History: Denies: Hx Cerebrovascular Accident, Hx Seizures Endocrine Medical History: Reports: Hx Hypothyroidism Renal/ Medical History: Denies: Hx Peritoneal Dialysis GI Medical History: Reports: Hx Colonoscopy. Denies: Hx Hepatitis, Hx Hiatal Hernia, Hx Ulcer Musculoskeletal Medical History: Reports Hx Arthritis - Osteoporosis Spine, arms and hands, Reports Hx Musculoskeletal Deformity, Reports Hx Musculoskeletal Trauma Psychiatric Medical History: Reports: Hx Anxiety, Hx Depression Traumatic Medical History: Reports: Hx Fractures - Arm Infectious Medical History: Denies: Hx Hepatitis Past Surgical History: Reports: Hx Genitourinary Surgery - Bladder sling, Other - Cataracts - Immunizations Hx Diphtheria, Pertussis, Tetanus Vaccination: Yes Hx Pneumococcal Vaccination: 10/03/04 Vertical Provider Document - CONSTITUTIONAL Agree With Documented VS: Yes Exam Limitations: No Limitations General Appearance: WD/WN, No Apparent Distress - INFECTION CONTROL TRAVEL OUTSIDE OF THE [place] IN LAST 30 DAYS: No - HEENT HEENT: Atraumatic, Normocephalic. negative: Pharyngeal Exudate, Pharyngeal Tenderness, Pharyngeal Erythema, Tympanic Membrane Red, Tympanic Membrane Bulging Mouth Diagram: 1 - Tenderness, dental fracture, no gingival abscess, no trismus - NECK Neck: Normal Inspection, Supple - RESPIRATORY Respiratory: No Respiratory Distress, Wheezing - CARDIOVASCULAR Cardiovascular: Regular Rate, Regular Rhythm, No Murmur - GI/ABDOMEN Gastrointestinal: Abdomen Soft - BACK Back: Abnormal Inspection - Lower lumbar paraspinal tenderness, bilateral SI joint tenderness. negative: CVA Tenderness-Right, CVA Tenderness-Left - MUSCULOSKELETAL/EXTREMETIES Musculoskeletal/Extremeties: MAEW, FROM - NEURO Level of Consciousness: Awake, Alert, Appropriate Motor/Sensory: No Motor Deficit, No Sensory Deficit Notes: No saddle anesthesia, no foot drop, normal gait - DERM Integumentary: Warm, Dry, No Rash Course - Re-evaluation Re-evalutation: 08/23/20 08:47 Patient with incidental dental decay, and tooth ache. Will start patient on antibiotic for tooth issue and encourage outpatient follow-up with dentist. Patient additionally with scattered wheezing. Patient does smoke. Patient states she does have an inhaler at home. We will add a steroid to help with her wheezing at this time. No concern for pneumonia at this time. The patient presents with low back pain without signs of spinal cord compression, cauda equina syndrome, infection, aneurysm, or other serious etiology. The patient is neurologically intact. Given the extremely risk of these diagnoses further testing and evaluation for these possibilities does not appear to be indicated at this time. Patient has been instructed to return if the symptoms worsen or change in any way. - Vital Signs Vital signs: Temp Pulse Resp BP Pulse Ox 98.2 F 110 H 16 131/62 H 95 08/23/20 07:20 08/23/20 07:20 08/23/20 07:20 08/23/20 07:20 08/23/20 07:20 Discharge - Discharge Clinical Impression: Wheezing, Toothache Low back pain Qualifiers: Chronicity: acute Back pain laterality: bilateral Sciatica presence: with sciatica Sciatica laterality: sciatica of right side Qualified Code(s): M54.41 - Lumbago with sciatica, right side Condition: Stable Disposition: HOME, SELF-CARE Instructions: Dentist, Low Back Pain ([facility]), Oral Narcotic Medication ([facility]), Penicillin V K ([facility]), Stop Smoking ([facility]), Steroid Medication, Toothache ([facility]) Additional Instructions: Return immediately for any new or worsening symptoms Followup with your primary care provider, call tomorrow to make a followup appointment Follow-up with a dental care provider, call Tuesday for an appointment Prescriptions: Prednisone [Deltasone 10 mg Tablet] 10 mg PO ASDIR #21 tablet Lidocaine [Lidoderm 5% (700 mg) Transdermal Patch] 1 patch TP DAILY PRN #10 adh..patch PRN Reason: Hydrocodone/Acetaminophen [[place] 5-325 mg Tablet] 1 tab PO Q6 PRN #15 tablet PRN Reason: Penicillin V Potassium [Penicillin Vk 500 mg Tablet] 500 mg PO BID #20 tablet Referrals: MAXINE POWERS NP [Primary Care Provider] - Follow up as needed [facility] [Provider Group] - Follow up as needed
== END 2020-08-23 09:05 | disposition home or self-care (01) ==
LOC: ER 07:08
DX: M54.41 Lumbago with sciatica, right side (principal); R06.2 Wheezing; K08.9 Disorder of teeth and supporting structures, unspecified; F17.200 Nicotine dependence, unspecified, uncomplicated; I10 Essential (primary) hypertension
CPT/HCPCS: 99284